=== PATIENT | female | born 1970 | race Caucasian/White ===

== ENCOUNTER 2021-10-02 12:23 | Emergency (ER) | payer OTHER, SELFPAY ==
[2021-10-02 12:24] VITALS: BP 101/65; PULSE 82; RESP 16; TEMP 36.1; O2SAT 98; BMI 25.0
--- NOTE | 2021-10-02 15:24 | EDS_ITS ---
HPI History of Present Illness Chief Complaint: Upper Extremity Injury Informant: patient Onset/Context/Timing Onset: Days Context: Sudden Onset Current Severity: Mild Maximum Severity: Mild Narrative Narrative: Patient presents secondary to infection of left index finger. 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 Her index finger got caught between the posterior molars of a [place] mountain dog. She was seen at an urgent care center who did an x-ray and started her on Augmentin. Patient today feels the area is more red and swollen. She went back to urgent care where they sent her to the emergency room. She is right-hand dominant. No paresthesias. Decreased range of motion at DIP secondary to pain and swelling. [facility] Medical History (Updated 10/02/21 @ 17:[address] Kirstie Paulson MD) Depression Medical History no medical history no medical history Allergy/AdvReac Type Severity Reaction Status Date / Time No Known Allergies Allergy Verified 10/02/21 12:26 Social History Smoking Status: Never smoker ROS ROS ED Constitutional Constitutional ED: Denies chills or fever(s) ENT ENT ED: Denies sore throat Cardiovascular Cardiovascular: Denies chest pain Respiratory/Chest Respiratory/Chest: Denies cough or dyspnea Gastrointestinal Gastrointestinal: Denies abdominal pain, nausea or vomiting Genitourinary Genitourinary ED: Denies dysuria Musculoskeletal Musculoskeletal: Reports other Details: Left index finger pain and swelling ; Denies back pain Integumentary Denies rash Neurologic Neurologic: Denies headache(s), paresthesias or weakness Allergic/Immunologic Allergic/Immunologic ED: Denies urticaria EXAM Physical Exam Const Vital Signs: 10/02/21 12:24 Temperature 96.9 F L Temperature Source Temporal Pulse Rate 82 Respiratory Rate 16 Blood Pressure 101/65 Blood Pressure Mean 77 Pulse Ox 98 Oxygen Delivery Method Room Air Positive well nourished and well developed General Appearance ED: well developed HEENT normocephalic and atraumatic Eyes PERRL and EOMs intact bilaterally Neck supple Chest Wall inspection of chest normal and palpation of chest normal Resp normal respiratory effort and clear to auscultation bilaterally Cardio regular rate and regular rhythm GI Palpation: soft Extremity Extremity Narrative: 2 scabbed lacerations to the left index finger at the DIP joint along both the medial lateral side. Mild surrounding erythema and edema. No tenderness along the flexor or extensor tendons. Able to flex and extend at PIP joint. Pain with flexion at DIP joint. Neuro oriented x3 Sensorium / Orientation: alert Psych mental status grossly normal MDM MDM MDM Narrative Medical decision making narrative: X-rays of left index finger obtained. Dose of IV Unasyn given. Radiography Diagnostic Testing: Radiology Impression Finger X-Ray 10/02/21 15:40 IMPRESSION: Soft tissue swelling. Electronically Signed: Oleg Rodriguez MD at 15:51 EST , Treatment and Re-Evaluation Comments:: X-ray per my interpretation reveals no acute abnormality. I do not see significant fluid in the DIP joint space. I did discuss with patient that while it does look like a mild infection it does not appear to be involving the joint space itself. She will continue current treatment. Discharge Plan Triage Chief Complaint: Upper Extremity Injury ED Provider: Kirstie Paulson Dx/Rx/DC Orders Clinical Impression: Dog bite Instructions: ED Dog Bite Primary Care Provider: Blanca Adame NP Referrals: Blanca Adame NP, [facility] [Primary Care Provider] - 1 Week Disposition Disposition: Home, Self Care Discharge Date/Time: 10/02/21 17:41
--- NOTE | 2021-10-02 15:40 | RAD_ITS ---
STUDY: X-RAY - LEFT HAND, ATTENTION INDEX FINGER REASON FOR EXAM: Female, 50 years old. Infection TECHNIQUE: 3 view(s) of the finger were obtained. COMPARISON: None. FINDINGS: Normal metacarpal head. Normal metacarpophalangeal joint. Normal proximal phalanx. Normal middle phalanx. Normal distal phalanx. Normal proximal interphalangeal joint. Normal distal interphalangeal joint. Soft tissue swelling. No radiopaque foreign body is seen. RAD/Finger(s) Min 2 Views IMPRESSION: Soft tissue swelling. Electronically Signed: Oleg Rodriguez MD at 15:51 EST ,
[2021-10-02 17:40] VITALS: BP 124/89; PULSE 64; RESP 14; TEMP 37; O2SAT 98
== END 2021-10-02 17:41 | disposition home or self-care (01) ==
PROVIDERS: Emergency Provider Emergency Medicine; PCP Nurse Practitioner Primary Care; Visit Provider Emergency Medicine
DX: S61.211D Laceration without foreign body of left index finger without damage to nail, subsequent encounter (principal); B99.9 Unspecified infectious disease; W54.0XXD Bitten by dog, subsequent encounter
CPT/HCPCS: 73140; 99282; J7050; A4216; J0295

== ENCOUNTER 2023-11-25 12:02 | Inpatient (IN) | payer OTHER, SELFPAY ==
[2023-11-25] VITALS (7 sets, daily range): BP systolic 109–128; BP diastolic 66–82; PULSE 70–88; RESP 16–20; TEMP 36.2–37; O2SAT 96–98; BMI 29.3; BMI 28.9
--- NOTE | 2023-11-25 12:17 | CT_ITS ---
STUDY: CT ABDOMEN AND PELVIS WITH CONTRAST REASON FOR EXAM: Female, 53 years old. Blood in the stool. Constipation. Abdominal pain. RADIATION DOSAGE (If Supplied By Facility): CTDIvol = ( 15.83 ) mGy, DLP = ( 1396.66 ) mGycm TECHNIQUE: Transaxial images were obtained from the dome of the diaphragm to the symphysis pubis with oral contrast. Oral and amp; IV Gastrografin and amp; 100mL Isovue-300 was administered. Sagittal and coronal images were reconstructed. Individualized dose optimization techniques were used for this CT. COMPARISON: None. FINDINGS: Minimal degree of dependent bibasilar atelectasis. The visualized portions of the heart are within normal limits. There are multiple hypodense nodules scattered throughout both lobes of the liver. The largest lesion in the right lobe measures 7.5 cm x 5 cm. The largest in the left lobe measures 5.2 cm x 5 cm. Metastatic deposit should be ruled out. There is decreased attenuation of the liver consistent with steatosis. Normal gallbladder and extrahepatic biliary system. Normal spleen. Normal pancreas. Normal bilateral adrenal glands. Normal right kidney. Normal left kidney. Normal visualized stomach. Normal small intestine. There is evidence of circumferential irregular wall thickening of the sigmoid colon more prominent along its anterior mesenteric aspect. Soft tissue nodules are seen along the anterior mesenteric side of the omentum. A sigmoid carcinoma should be ruled out. A large amount of fecal material is seen throughout the colon. The appendix is visualized and appears normal. Normal abdominal aorta. Normal inferior vena cava. Normal retroperitoneum. Normal urinary bladder. There is evidence of bilateral tubal ligation clips. Heterogeneous enlargement of the uterus suggestive of a fibroid uterus. There is a small umbilical hernia containing fat. This space narrowing and disc degeneration with spondylosis at the L5-S1 level. CT/Abdomen/Pelvis WITH Contrast IMPRESSION: Multiple hypodense nodules seen in the liver as described superimposed on diffuse fatty infiltration. Hepatic metastatic deposits should be ruled out. A large amount of fecal material is seen throughout the colon. There is abnormal thickening of the sigmoid colon as described. Increased markings are seen along the antimesenteric side of the omentum at the level of the sigmoid colon. Small adenopathy should BE ruled out. Enlarged fibroid uterus. Electronically Signed: Oleg Rodriguez MD at 14:32 EDT ,
--- NOTE | 2023-11-25 12:18 | EDS_ITS ---
HPI HPI - GI History of Present Illness Chief Complaint: Abd Pain Detail of Chief Complaint: Abdominal pain and rectal bleeding Informant: patient Narrative Narrative: Patient presents to the emergency department with complaint of abdominal pain that initially started 6 weeks ago with bloody diarrhea. That seem to over time subside but she continued to have bloody stools about 90% of the time at times passing some clots. Now she is having episodes of constipation. Her last bowel movement was yesterday but only had a very small amount. She feels bloated and uncomfortable. She followed up with her nurse practitioner who referred her to GI and she has an appointment December 15. No family history of inflammatory bowel disease or colon cancer. [facility] Medical History (Updated 11/25/23 @ 14:[address] Idania Palacios DO) Depression Home Medications citalopram 40 mg tablet 40 mg PO DAILY 11/25/23 [History Last Taken Unknown] estradiol 0.5 mg tablet 0.5 mg PO DAILY 11/25/23 [History Last Taken Unknown] levothyroxine 112 mcg tablet 112 mcg PO DAILY 11/25/23 [History Last Taken Unknown] progesterone micronized 200 mg capsule 200 mg PO DAILY 11/25/23 [History Last Taken Unknown] Allergy/AdvReac Type Severity Reaction Status Date / Time No Known Allergies Allergy Verified 11/25/23 12:03 Social History Smoking Status: Never smoker ROS ROS ED Review of Systems ROS Unobtainable: other Constitutional Constitutional ED: Reports lethargy; Denies chills, fever(s), sweats or weight loss Eyes Eyes: Denies blurry vision, change in vision or diplopia ENT ENT ED: Denies rhinorrhea or sore throat Cardiovascular Cardiovascular: Denies chest pain, orthopnea or racing heartbeat Respiratory/Chest Respiratory/Chest: Denies cough, dyspnea, dyspnea on exertion, orthopnea or sputum Gastrointestinal Gastrointestinal: Reports abdominal pain, constipation, diarrhea and other Details: Bright red blood per rectum ; Denies nausea or vomiting Genitourinary Genitourinary ED: Denies dysuria, hematuria or urinary frequency Musculoskeletal Musculoskeletal: Denies arthralgias, back pain, myalgias or neck pain Integumentary Denies abscess, Abrasions or rash Neurologic Neurologic: Denies headache(s) or weakness Psychiatric Psychiatric: Denies anxiety, depression or suicidal thoughts Endocrine Endocrinology: Denies polydipsia, polyphagia or polyuria Hematologic/Lymphatic Hematologic/Lymphatic: Denies easy bleeding, easy bruising or lymphadenopathy Allergic/Immunologic Allergic/Immunologic ED: Denies mouth swelling, tongue swelling or urticaria EXAM Physical Exam Const Vital Signs: 11/25/23 12:03 11/25/23 14:20 Temperature 97.5 F L 97.1 F L Temperature Source Temporal Oral Pulse Rate 87 81 Respiratory Rate 16 17 Blood Pressure 128/66 H 121/68 H Blood Pressure Mean 86 85 Pulse Ox 97 96 Oxygen Delivery Method Room Air Room Air Positive well nourished and well developed General Appearance ED: well developed and NAD HEENT Reports TM's clear and moist mucous membranes normocephalic and atraumatic; Negative for trauma or tenderness Tympanic Membrane ED: Yes TM's clear Eyes PERRL and EOMs intact bilaterally General Eye ED: Negative for pale conjunctiva or scleral icterus Neck no lymphadenopathy, supple and no JVD General: Negative for tenderness Chest Wall inspection of chest normal and palpation of chest normal Chest: Negative for tenderness Resp normal respiratory effort and clear to auscultation bilaterally Effort and Inspection: Negative for respiratory distress or pain with movement Auscultation: Negative for rhonchi, wheezes or diminished lung sounds Cardio regular rate, regular rhythm, S1 normal heart sound, S2 normal heart sound and no murmurs Peripheral Pulses: pulses 2+ throughout GI normal to inspection, nondistended, normoactive bowel sounds, soft to palpation, non-distended and no masses GI Narrative: Hyperactive bowel sounds. Mild diffuse tenderness throughout. Mild guarding. There is no rebound, rigidity, or pineal signs. No mass palpated. Rectal exam performed did not show any thrombosed or bleeding hemorrhoids. No fissures. There was no impaction. No masses palpated in the rectal vault. There was brown stool in the rectal vault which was sent for Hemoccult. Back/Spine no CVA tenderness and no thoracic nor lumbar tenderness Extremity normal to inspection General Extremety ED: Negative for edema General Extremity: Negative for edema Neuro oriented x3, CN's II-XII intact bilaterally, no sensory deficits noted and gait normal Sensorium / Orientation: awake, alert, oriented to person, oriented to place and oriented to time Motor Exam: strength 5/5 throughout and strength abnormal Psych mental status grossly normal Skin no rashes or lesions noted and no wounds MDM MDM MDM Narrative Medical decision making narrative: Patient presents with rectal bleeding and abdominal pain for 6 weeks. In the differential would be colon cancer versus inflammatory bowel disease versus hemorrhoids or fissures. Infectious etiology. IV line established. CBC with differential obtained for white count of 8.9 with hemoglobin 14.4 and platelet count of 411. Chemistries unremarkable. Patient had elevated AST of 75 and ALT of 39 and alk phos 171. C-reactive protein was elevated 18.4. Sed rate was elevated at 36. Lactate normal at 0.9. Urinalysis was normal. CT scan of the abdomen pelvis with IV and p.o. contrast obtained showed multiple hypodense nodule seen in the liver superimposed on diffuse fatty infiltration. Hepatic metastatic deposits should be ruled out. Large amount of fecal material seen throughout the colon and there is abnormal thickening of the sigmoid colon. There is increased markings seen along the antimesenteric side of the omentum at the level of the sigmoid colon and small adenopathy should be ruled out. At this point concern is for carcinoma of the sigmoid colon with metastasis to the liver. I did discuss findings with patient. Will contact GI on-call and also hospitalist to evaluate patient for admission. Patient will need further workup and evaluation and treatment for suspected metastatic carcinoma. Spoke with GI who recommended ordering a CEA and Dr. Callahna will order CT of the chest with IV contrast tomorrow given that we have already given her contrast today for the abdominal CT. Lab Data Attestation: I reviewed the patient's lab results. Labs: Laboratory Results - last 24 hr 11/25/23 11/25/23 11/25/23 12:20 13:15 13:45 WBC 8.9 RBC 4.96 Hgb 14.4 Hct 44.5 MCV 89.7 MCH 29.0 MCHC 32.4 RDW Std Deviation 41.3 RDW Coeff of Alex 12.6 Plt Count 411 MPV 10.2 Immature Gran % (Auto) 0.300 Neut % (Auto) 69.6 Lymph % (Auto) 19.7 [place] % (Auto) 7.4 Eos % (Auto) 2.2 Baso % (Auto) 0.8 Absolute Neuts (auto) 6.2 Absolute Lymphs (auto) 1.76 Nucleated RBC % 0 ESR 36 H Sodium 134 L Potassium 4.6 Chloride 103 Carbon Dioxide 26.0 Anion Gap 5 BUN 15 Creatinine 0.90 Est GFR (MDRD) Af Amer 84 Est GFR (MDRD) Non-Af 70 BUN/Creatinine Ratio 16.7 Glucose 97 Lactic Acid 0.9 Calcium 9.9 Total Bilirubin 0.50 AST 75 H ALT 39 Alkaline Phosphatase 171 H C-React Prot Ext Range 18.40 H Total Protein 8.7 H Albumin 4.0 Globulin 4.7 H Albumin/Globulin Ratio 0.9 Lipase TNP Urine Color Yellow Urine Clarity Clear Urine pH 6.5 Ur Specific [place] 1.010 Urine Protein 15 H Urine Glucose (UA) Normal Urine Ketones Negative Urine Occult Blood Negative Urine Nitrite Negative Urine Bilirubin Negative Urine Urobilinogen Normal Ur Leukocyte Esterase 25 H Urine RBC 0 SEEN Urine WBC 0-5 SEEN Ur Squamous Epith Cells 0-5 SEEN Urine Bacteria 0 SEEN Urine Mucus 0 SEEN Radiography Diagnostic Testing: Clinical Impression(s) from Imaging Studies Abdomen/Pelvis CT 11/25/23 12:17 IMPRESSION: Multiple hypodense nodules seen in the liver as described superimposed on diffuse fatty infiltration. Hepatic metastatic deposits should be ruled out. A large amount of fecal material is seen throughout the colon. There is abnormal thickening of the sigmoid colon as described. Increased markings are seen along the antimesenteric side of the omentum at the level of the sigmoid colon. Small adenopathy should BE ruled out. Enlarged fibroid uterus. Electronically Signed: Oleg Rodriguez MD at 14:32 EDT , Discharge Plan Dx/Rx/DC Orders Clinical Impression: Metastasis to liver, Rectal bleed, Carcinoma of colon, Abdominal pain Disposition Disposition: Acute Care [facility]
[2023-11-25 12:39] LABS: Absolute Lymphocyte Count 1.76 X10^3/uL (0.83-4.51); Absolute Neutrophil Count 6.2 X10^3/uL (2.0-7.7); Basophil# 0.07 X10^3/uL; Basophil% 0.8 % (0-1); Eosinophils% 2.2 % (0-5); Hematocrit 44.5 % (37-47); Hemoglobin 14.4 g/dL (12.0-15.0); Lymphocyte # 1.76 X10^3/ul (0.83-4.51); Lymphocyte % 19.7 % (19-41); Mean Corp Hgb Conc 32.4 g/dL (32-36); Mean Corpuscular Volume 89.7 fL (81-99); Mean Platelet Vol. 10.2 fl (6.2-12.0); Monocyte# 0.66 X10^3/uL; Monocyte% 7.4 % (0-10); NRBC Flagged by Analyzer 0 % (0-5); Neutrophil # 6.21 X10^3/uL (2.7-7.7); Neutrophil % 69.6 % (47-70); Platelet Count 411 K/mm3 (150-450); RBC Distribution Width CV 12.6 % (11.6-14.6); RBC Distribution Width SD 41.3 fl (35.1-43.9); Red Blood Count 4.96 M/mm3 (4.2-5.4); White Blood Count 8.9 K/mm3 (4.4-11.0)
[2023-11-25] MEDS: 0.9% Normal Saline (1000mL) 1,000 ML 125 ML IV (13:00)
[2023-11-25 13:08] LABS: Erythrocyte Sedimentation Rate 36 mm/hr (0-30)
[2023-11-25 13:10] LABS: ALB/GLOB Ratio 0.9 RATIO (0.9-2.4); AST(SGOT) 75 U/L (15-37); Alanine Aminotransfer ALT/SGPT 39 U/L (13-56); Alkaline Phosphatase 171 U/L (45-117); Anion Gap 5 (5-15); BUN 15 mg/dL (7-18); BUN/Creat Ratio 16.7 RATIO (10-20); Calcium,Total 9.9 mg/dL (8.5-10.1); Chloride 103 mmol/L (98-107); EST Glomerular Filtration Rate 70 mL/min (>60); Est Glom Filt Rate - Afr Amer 84 mL/min (>60); Globulin 4.7 g/dL (2.2-4.2); Glucose 97 mg/dL (74-106); Potassium 4.6 mmol/L (3.5-5.1); Protein, Total 8.7 g/dL (6.4-8.2); Sodium Level 134 mmol/L (136-145)
[2023-11-25 13:51] LABS: Bacteria 0 SEEN /hpf (None Seen); Mucous, Urine 0 SEEN /hpf (<or=2+); Red Blood Cells-Urine 0 SEEN /hpf (0-5)
[2023-11-25 13:57] LABS: Color, Urine Yellow (Yellow); Glucose, Dipstick Normal (Normal); Ketone-Dipstick Negative (Negative); Leukocyte Esterase-Dipstick 25 /ul (Negative); Nitrite-Dipstick Negative (Negative); Occult Blood-Urine Negative /ul (Negative); Protein-Dipstick 15 mg/dl (Negative); Urine Bilirubin Dipstick Negative (Negative); Urine Clarity Clear (Clear); Urine Urobilinogen Normal (Normal); Urine pH 6.5 (5.0 - 8.0)
[2023-11-25 13:57] LABS: Lactic Acid 0.9 mmol/L (0.4-1.9)
[2023-11-25 14:20] LABS: Squamous Epithelial Cells - UA 0-5 SEEN /hpf (5-10); White Blood Cells 0-5 SEEN /hpf (0-5)
--- NOTE | 2023-11-25 15:07 | PCM.HP.STD ---
HPI - General General Date of Admission: 11/25/23 Date of Service: 11/25/23 Chief Complaint: Abdominal pain, bloody stools. HPI Narrative The patient is a 53 y/o F w/ PMHx: Anxiety and Depression, Hypothyroidism who presents to the [facility] ED on 11/25/23 with ongoing abdominal discomfort initially starting 6 weeks prior with bloody diarrhea which seems to have subsided however she will intermittently still have bloody stools and at times passed some clots now having episodes of constipation with her last bowel movement today prior but a very scant amount with consistent ongoing discomfort and bloating still awaiting upcoming evaluation per gastroenterology with appointment 12/16/2023 with no history of previous colon cancer or inflammatory bowel disease prompting eventual ED evaluation. Patient rates her abdominal discomfort 4 out of 10 in severity, worse with palpation. Reports no current nausea or recent emesis bouts. Workup in the ED included T97.1, heart rate 81, BP 121/68, respiratory rate 17, 96% on room air, CBC with WBC 8.9, hemoglobin 14.4, platelets 411 without marked shift, ESR 36, CRP 18.40, CMP with sodium 134, lactic acid 0.9, AST/ALT 75/31, alk phos 171 otherwise hepatic profile not marked appearing, lipase pending upon requested evaluation of patient, urinalysis unremarkable, stool guaiac positive, CT abdomen and pelvis with multiple hypodense nodule seen in liver superimposed on diffuse fatty infiltration with hepatic metastatic deposits a possibility, large amount of fecal material throughout the colon, abnormal thickening of the sigmoid colon, increased markings seen along the antimesenteric side of the omentum at the level of the sigmoid colon with small adenopathy a possibility, enlarged fibroid uterus. In the ED patient ministered maintenance IV fluids. ED discussed case with Dr. Callahan. In the ED patient ministered maintenance IV fluids. [facility] Medical History (Updated 11/25/23 @ 17:[address] Angella Rodriguez MD) Anxiety and depression Hypothyroidism Obesity Home Medications acetaminophen 500 mg capsule 500 mg PO DAILY 11/25/23 [History Last Taken 11/22/23] buspirone 10 mg tablet 20 mg PO BID 11/25/23 [History Last Taken 11/24/23] citalopram 40 mg tablet 40 mg PO DAILY 11/25/23 [History Last Taken 11/24/23] estradiol 0.5 mg tablet 0.5 mg PO DAILY 11/25/23 [History Last Taken 11/24/23] levothyroxine 112 mcg tablet 112 mcg PO DAILY 11/25/23 [History Last Taken 11/21/23] loratadine 10 mg tablet (Allerclear) 10 mg PO DAILY 11/25/23 [History Last Taken Unknown] progesterone micronized 200 mg capsule 200 mg PO DAILY 11/25/23 [History Last Taken 11/22/23] turmeric 400 mg capsule 400 mg PO DAILY 11/25/23 [History Last Taken 11/24/23] Allergy/AdvReac Type Severity Reaction Status Date / Time No Known Allergies Allergy Verified 11/25/23 12:03 Family History (Updated 11/25/23 @ 17:[address] Angella Rodriguez MD) Mother COPD (chronic obstructive pulmonary disease) Lung cancer Diabetes Father Heart disease Hypertension Surgical History (Updated 11/25/23 @ 17:[address] Angella Rodriguez MD) H/O section History of bilateral tubal ligation Hx of appendectomy Social History (Updated 11/25/23 @ 17:[address] Angella Rodriguez MD) household members: family and children Smoking Status: Never smoker alcohol intake: never substance use type: does not use ROS ROS Narrative Admission Review of Systems: CONSTITUTIONAL: No weight loss, fever, chills, +weakness or fatigue. HEENT: Eyes: No visual loss, blurred vision, double vision or yellow sclerae. Ears, Nose, Throat: No hearing loss, sneezing, congestion, runny nose or sore throat. SKIN: No rash or itching, lesions, wounds. CARDIOVASCULAR: No chest pain, chest pressure or chest discomfort, palpitations, edema, orthopnea, syncopal events. RESPIRATORY: No shortness of breath, cough or sputum, wheezing, hemoptysis. GASTROINTESTINAL: + anorexia, abdominal discomfort, cramping, bloating, bright red blood per rectum/clots. No reported melanotic stool. GENITOURINARY: No dysuria, frequency, urgency or retention. NEUROLOGICAL: No headache, dizziness, syncope, paralysis, ataxia, numbness or tingling in the extremities, focal weakness, change in bowel or bladder control, seizure. MUSCULOSKELETAL: + muscle, back pain, joint pain or stiffness. HEMATOLOGIC: No anemia. + As noted bright red blood per rectum/bleeding. LYMPHATICS: No enlarged nodes. No history of splenectomy. PSYCHIATRIC: + History of anxiety and depression. ENDOCRINOLOGIC: No reports of sweating, cold or heat intolerance. No polyuria or polydipsia. ALLERGIES: No history of asthma, hives, eczema or rhinitis. Vital Signs Vital Signs Vital Signs: 11/25/23 12:03 11/25/23 14:20 Temperature 97.5 F L 97.1 F L Temperature Source Temporal Oral Pulse Rate 87 81 Respiratory Rate 16 17 Blood Pressure 128/66 H 121/68 H Blood Pressure Mean 86 85 Pulse Ox 97 96 Oxygen Delivery Method Room Air Room Air Weight Weight: 192 lb 14.472 oz Body Mass Index (BMI) 29.3 Physical Exam Narrative Physical Examination: General: Awake, alert, oriented x 3 and cooperative, seated upright in the ED bed, fatigued, tearful. Skin: Normal color, normal turgor, no icterus, no cyanosis. HEENT: AT/NC, EOMI, PERRLA, moderately dry MM, no carotid bruits or JVD noted. Lungs: CTA bilaterally, moderate effort, mild decrease BL bases, no rales, ronchi or wheezing. Heart: Regular rate and rhythm; no gallop, rub audible. Abdomen: Soft, obese, primarily uncomfortable periumbilical as well as bilateral lower quadrant, mildly distended but not significantly tympanitic, difficult to appreciate HSM given habitus, mildly hyperactive bowel sounds. Extremities: No cyanosis, clubbing, or edema. Neurological: Patient awake, alert, oriented as noted, cognitive function intact; pupils equally reactive to light and accommodation, cranial nerves grossly normal, moving all 4 extremities, no focal deficits, strength mildly globally decreased secondary to acute complaints. Psychiatric: Affect appears fatigued, appropriately tearful, does have underlying anxiety and depression. Results Lab / Micro Data 11/25/23 12:20 11/25/23 12:20 Labs: Laboratory Results - last 24 hr 11/25/23 12:20: WBC 8.9, RBC 4.96, Hgb 14.4, Hct 44.5, MCV 89.7, MCH 29.0, MCHC 32.4, RDW Std Deviation 41.3, RDW Coeff of Alex 12.6, Plt Count 411, MPV 10.2, Immature Gran % (Auto) 0.300, Neut % (Auto) 69.6, Lymph % (Auto) 19.7, [place] % (Auto) 7.4, Eos % (Auto) 2.2, Baso % (Auto) 0.8, Absolute Neuts (auto) 6.2, Absolute Lymphs (auto) 1.76, Nucleated RBC % 0, ESR 36 H, Sodium 134 L, Potassium 4.6, Chloride 103, Carbon Dioxide 26.0, Anion Gap 5, BUN 15, Creatinine 0.90, Est GFR (MDRD) Af Amer 84, Est GFR (MDRD) Non-Af 70, BUN/Creatinine Ratio 16.7, Glucose 97, Calcium 9.9, Total Bilirubin 0.50, AST 75 H, ALT 39, Alkaline Phosphatase 171 H, C-React Prot Ext Range 18.40 H, Total Protein 8.7 H, Albumin 4.0, Globulin 4.7 H, Albumin/Globulin Ratio 0.9, Lipase TNP 11/25/23 13:15: Lactic Acid 0.9 11/25/23 13:45: Urine Color Yellow, Urine Clarity Clear, Urine pH 6.5, Ur Specific [place] 1.010, Urine Protein 15 H, Urine Glucose (UA) Normal, Urine Ketones Negative, Urine Occult Blood Negative, Urine Nitrite Negative, Urine Bilirubin Negative, Urine Urobilinogen Normal, Ur Leukocyte Esterase 25 H, Urine RBC 0 SEEN, Urine WBC 0-5 SEEN, Ur Squamous Epith Cells 0-5 SEEN, Urine Bacteria 0 SEEN, Urine Mucus 0 SEEN Micro: Microbiology 11/25/23 12:20 Stool Stool Occult Blood (ESME) - Final Occult Blood Positive Imaging Radiology Impression Abdomen/Pelvis CT 11/25/23 12:17 IMPRESSION: Multiple hypodense nodules seen in the liver as described superimposed on diffuse fatty infiltration. Hepatic metastatic deposits should be ruled out. A large amount of fecal material is seen throughout the colon. There is abnormal thickening of the sigmoid colon as described. Increased markings are seen along the antimesenteric side of the omentum at the level of the sigmoid colon. Small adenopathy should BE ruled out. Enlarged fibroid uterus. Electronically Signed: Oleg Rodriguez MD at 14:32 EDT , Assessment & Plan Assessment/Plan (1) Rectal bleed: PLAN: Plan The patient is a 53 y/o F w/ PMHx: Anxiety and Depression, Hypothyroidism who presents to the [facility] ED on 11/25/23 with ongoing abdominal discomfort initially starting 6 weeks prior with bloody diarrhea which seems to have subsided however she will intermittently still have bloody stools and at times passed some clots now having episodes of constipation with her last bowel movement today prior but a very scant amount with consistent ongoing discomfort and bloating. #1. Abdominal pain, cramping, bright red blood per rectum secondary to Acute GI Bleed complicated by suspected sigmoid colon mass as well as possible hepatic metastases with elevated AST, elevated alk phos and mildly increased inflammatory markers: Will admit to [facility], will maintain on IVFs, will obtain serial H+Hs, will maintain on IV PPI, will initiate bowel prep for possible evaluation endoscopically in AM, will continue GI consultation initiated per ED, will obtain CT chest with contrast 11/26/2023 following overnight hydration given contrast already used for CT abdomen upon presentation in the ED, CEA level pending per ED physician per GI request, will allow clears until midnight then n.p.o. status. #2. Hyponatremia, mild: Admission sodium 134, chloride 103, suspect some component of dehydration as poor intake with recent complaints, will judiciously hydrate and repeat CMP in AM. #3. Anxiety and depression: We will continue patient on citalopram regimen. #4. Hypothyroidism: We will continue patient home levothyroxine regimen. #5. Obesity: Weight loss and lifestyle changes encouraged. #6. DVT prophylaxis: SCDs. #7. CODE STATUS: Full code. Charges/Coding Visit Charges Inpatient E&M: 97034 Init Hosp L2
--- NOTE | 2023-11-25 17:28 | CON.PCM.GI_ITS ---
HPI Consult Data Date of Consult: 11/25/23 HPI Narrative Reason for Consultation: Lower GI bleeding HPI Narrative: CHRIS NIX, is a 53 F who presents with worsening abdominal pain followed by multiple episodes of bright red blood per rectum and diarrhea which turned into blood clots per rectum. She has never had a colonoscopy in the past. She has a past medical history of Anxiety and Depression, Hypothyroidism. She presents to the [facility] ED on 11/25/23 with ongoing abdominal discomfort initially starting 6 weeks prior with bloody diarrhea which seems to have subsided however she will intermittently still have bloody stools and at times passed some clots now having episodes of constipation with her last bowel movement today prior but a very scant amount with consistent ongoing discomfort and bloating still awaiting upcoming evaluation per gastroenterology with appointment 12/16/2023 with no history of previous colon cancer or inflammatory bowel disease prompting eventual ED evaluation. Workup in the ED included T97.1, heart rate 81, BP 121/68, respiratory rate 17, 96% on room air, CBC with WBC 8.9, hemoglobin 14.4, platelets 411 without marked shift, ESR 36, CRP 18.40, CMP with sodium 134, lactic acid 0.9, AST/ALT 75/31, alk phos 171 otherwise hepatic profile not marked appearing, lipase pending upon requested evaluation of patient, urinalysis unremarkable, stool guaiac positive, CT abdomen and pelvis with multiple hypodense nodule seen in liver superimposed on diffuse fatty infiltration with hepatic metastatic deposits a possibility, large amount of fecal material throughout the colon, abnormal thickening of the sigmoid colon, increased markings seen along the antimesenteric side of the omentum at the level of the sigmoid colon with small adenopathy a possibility, enlarged fibroid uterus. [facility] Medical History (Updated 11/25/23 @ 14:[address] Idania Palacios, DO) Depression Home Medications acetaminophen 500 mg capsule 500 mg PO DAILY 11/25/23 [History Last Taken 11/22/23] buspirone 10 mg tablet 20 mg PO BID 11/25/23 [History Last Taken 11/24/23] citalopram 40 mg tablet 40 mg PO DAILY 11/25/23 [History Last Taken 11/24/23] estradiol 0.5 mg tablet 0.5 mg PO DAILY 11/25/23 [History Last Taken 11/24/23] levothyroxine 112 mcg tablet 112 mcg PO DAILY 11/25/23 [History Last Taken 11/21/23] loratadine 10 mg tablet (Allerclear) 10 mg PO DAILY 11/25/23 [History Last Taken Unknown] progesterone micronized 200 mg capsule 200 mg PO DAILY 11/25/23 [History Last Taken 11/22/23] turmeric 400 mg capsule 400 mg PO DAILY 11/25/23 [History Last Taken 11/24/23] Allergy/AdvReac Type Severity Reaction Status Date / Time No Known Allergies Allergy Verified 11/25/23 12:03 Social History Smoking Status: Never smoker ROS Review of Systems ROS Unobtainable: other Constitutional Constitutional: Denies fatigue, fever(s), poor appetite, weight gain or weight loss ENT HEENT: Denies mouth lesions Cardiovascular Cardiovascular: Denies abdominal bloating, abdominal edema or abdominal pain Respiratory/Chest Respiratory/Chest: Denies change in mental status, change in phlegm color, chest congestion or chest tightness Gastrointestinal Gastrointestinal: Denies belching, bloating, change in bowel habits, change in stool character, chewing difficulty, coffee ground emesis, constipation, cramping, diarrhea, dyspepsia, dysphagia, early satiety, excessive flatus, fecal incontinence, heartburn, hematemesis, hematochezia, hemorrhoids, loose stools, melena, nausea, odynophagia, rectal bleeding, tenesmus, vomiting or weight jackson ges Genitourinary Genitourinary: Denies abdominal discomfort, burning urination or itching Musculoskeletal Musculoskeletal: Reports as per HPI; Denies muscle weakness or myalgias Integumentary Integumentary: Denies jaundice Neurologic Neurologic: Denies lack of coordination or weakness Psychiatric Psychiatric: Denies confusion, depression, memory loss, mood swings, paranoia or suicidal ideation Endocrine Endocrinology: Denies systems reviewed and no addt'l complaints, except as documented Hematologic/Lymphatic Hematologic/Lymphatic: Denies anemia, easy bleeding, easy bruising or lymphadenopathy Allergic/Immunologic Allergic/Immunologic: Denies systems reviewed and no addt'l complaints, except as documented Physical Exam Const alert, oriented x3, no apparent distress, healthy appearing and well nourished General Appearance: cooperative, comfortable, well kempt and well developed Orientation / Consciousness: awake and oriented to person HEENT Head and Scalp: normocephalic and atraumatic Face and Sinus: normal facial exam Mouth: oral and palatal mucosa normal Eyes General Eye: normal appearance of both eyes Neck full ROM Lymph Lymphatic: no lymphadenopathy noted Chest inspection of chest normal Resp normal respiratory effort and no use of accessory muscles Cardio regular rate and regular rhythm GI normal to inspection, nondistended, normoactive bowel sounds, soft to palpation, non-tender, non-distended and no masses Auscultation: normoactive bowel sounds Palpation: soft Percussion: normal to percussion Rectal Exam: visual inspection normal and normal sphincter tone no CVA tenderness Back/Spine no CVA tenderness and normal ROM Extremity normal to inspection Peripheral Pulses: Yes pulses 2+ throughout Skin no rashes or lesions noted General Skin Exam: no breakdown, elasticity normal and turgor normal Neuro oriented x3 Motor Exam: strength 5/5 throughout Psych mental status grossly normal Appearance: grossly normal Attitude: calm Activity / Motor Behavior: appropriate eye contact Speech: normal speech Thought Process: normal thought process Thought Content: normal thought content Attention / Concentration: attention grossly intact Memory / Cognition: memory grossly intact Insight: insight good Judgement: judgement good Lab / Micro Data 11/25/23 12:20 11/25/23 12:20 Labs: Laboratory Results - last 24 hr 11/25/23 12:20: WBC 8.9, RBC 4.96, Hgb 14.4, Hct 44.5, MCV 89.7, MCH 29.0, MCHC 32.4, RDW Std Deviation 41.3, RDW Coeff of Alex 12.6, Plt Count 411, MPV 10.2, Immature Gran % (Auto) 0.300, Neut % (Auto) 69.6, Lymph % (Auto) 19.7, [place] % (Auto) 7.4, Eos % (Auto) 2.2, Baso % (Auto) 0.8, Absolute Neuts (auto) 6.2, Absolute Lymphs (auto) 1.76, Nucleated RBC % 0, ESR 36 H, Sodium 134 L, Potassium 4.6, Chloride 103, Carbon Dioxide 26.0, Anion Gap 5, BUN 15, Creatinine 0.90, Est GFR (MDRD) Af Amer 84, Est GFR (MDRD) Non-Af 70, BUN/Creatinine Ratio 16.7, Glucose 97, Calcium 9.9, Total Bilirubin 0.50, AST 75 H, ALT 39, Alkaline Phosphatase 171 H, C-React Prot Ext Range 18.40 H, Total Protein 8.7 H, Albumin 4.0, Globulin 4.7 H, Albumin/Globulin Ratio 0.9, Lipase TNP 11/25/23 13:15: Lactic Acid 0.9 11/25/23 13:45: Urine Color Yellow, Urine Clarity Clear, Urine pH 6.5, Ur Specific [place] 1.010, Urine Protein 15 H, Urine Glucose (UA) Normal, Urine Ketones Negative, Urine Occult Blood Negative, Urine Nitrite Negative, Urine Bilirubin Negative, Urine Urobilinogen Normal, Ur Leukocyte Esterase 25 H, Urine RBC 0 SEEN, Urine WBC 0-5 SEEN, Ur Squamous Epith Cells 0-5 SEEN, Urine Bacteria 0 SEEN, Urine Mucus 0 SEEN Micro: Microbiology 11/25/23 12:20 Stool Stool Occult Blood (ESME) - Final Occult Blood Positive Imaging Radiology Impression Abdomen/Pelvis CT 11/25/23 12:17 IMPRESSION: Multiple hypodense nodules seen in the liver as described superimposed on diffuse fatty infiltration. Hepatic metastatic deposits should be ruled out. A large amount of fecal material is seen throughout the colon. There is abnormal thickening of the sigmoid colon as described. Increased markings are seen along the antimesenteric side of the omentum at the level of the sigmoid colon. Small adenopathy should BE ruled out. Enlarged fibroid uterus. 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 Right at this time she is not having any signs or symptoms of a large bowel obstruction. She will need to undergo colonoscopy with biopsies. She will also need to undergo liver biopsy along with CT scan of the chest and likely PET scan. CEA level was drawn. All questions were answered. Charges/Coding Visit Charges Inpatient E&M: 15180 Init Hosp L3
[2023-11-25 18:19] LABS: Magnesium 1.7 mg/dL (1.6-2.6); Phosphorus 2.5 mg/dL (2.5-4.9)
[2023-11-25] MEDS: Bisacodyl 5 MG Tablet 20 MG PO (18:55)
[2023-11-25] MEDS: 0.9% Normal Saline (1000mL) 1,000 ML 100 ML IV (19:01)
[2023-11-25] MEDS: Polyethylene Glycol 3350 BOWEL PREP PO (20:28)
[2023-11-25] MEDS: busPIRone 5 MG Tablet 20 MG PO (20:29)
[2023-11-25] MEDS: Acetaminophen 325 MG Tablet 650 MG PO (20:32)
[2023-11-25] MEDS: Pantoprazole Sodium 40 MG in 0.9% Normal Saline (100mL MB+) 100 ML 330 MG IV (20:34)
[2023-11-25 20:39] LABS: Hematocrit 40.4 % (37-47); Hemoglobin 13.1 g/dL (12.0-15.0)
[2023-11-25] MEDS: proCHLORPERazine 10 MG/2 ML Vial 5 MG IV (20:43)
[2023-11-25] MEDS: 0.9% Saline Lock 10 ML Syringe IV (20:43)
[2023-11-26] VITALS (14 sets, daily range): BP systolic 96–129; BP diastolic 50–88; PULSE 72–92; RESP 14–18; TEMP 36.2–36.8; O2SAT 96–100; BMI 28.8; BMI 28.9
--- NOTE | 2023-11-26 | IMM_PTH ---
PATIENT: CHRIS NIX LOC: MS3 U#:[id number] AGE/SX: 53/F ROOM: [facility] RE11/25/[address]: Dr. Eugenio Barr DO : 1970 BED: 1 DIS: 11/30/2023 SPEC #: [id number] RECD: 11/28/23 11:14 STATUS: MAYELA REQ #: [id number] MERCEDES: 11/26/23 00:[address]: Mark Callahan DEPT: IMMUNOHISTOCHEMISTRY RECD BY: Jim Young ENTERED: 11/28/23 11:16 SP TYPE: IMMUNO OTHR DR: MD Dr. Lorenzo Abdul DO Jessica Witmer, MOLDER INFLATED BALL-C Tissues: Colon, NOS Procedures: MSH2 (add) MLH-1 (add) MSH6 (add) Anti-PMS2 (add) KI-67 (add) P53 (add) IN SITU HYBRIDIZATION MOC-31 (add) HER-2-REDDY (initial) Comments: @ Ordering doctor for HER2 edited from to @ by LIANA at 11/28/23 1116 @ Ordering doctor for MSH2. edited from to @ by LIANA at 11/28/23 1116 @ Ordering doctor for MLH1. edited from to @ by LIANA at 11/28/23 1116 @ Ordering doctor for MSH6. edited from to @ by LIANA at 11/28/23 1116 @ Ordering doctor for PMS2. edited from to @ by LIANA at 11/28/23 1116 @ Ordering doctor for KI67. edited from to @ by LIANA at 11/28/23 1116 @ Ordering doctor for P53. edited from to @ by LIANA at 11/28/23 1116 @ Ordering doctor for MOC31 edited from to @ by LIANA at 11/28/23 1116 @ Submitting doctor edited from to @ by LIANA at 11/28/23 1116 PHYSICIAN & [place] [id number] SPECIMEN INFORMATION: Tissue Source: Sigmoid mass biopsy Clinical Info: Rectal bleed Specimen Number: [id number] CPT code: [id number] METHODOLOGY: Deparaffinized sections of prefer/formalin-fixed tissue or PAP/DQ stained slides are incubated with monoclonal/polyclonal antibodies/oligonucleotide probes. Localization is made via biotin free immunoperoxidase method. Appropriate controls are performed and reacted as expected. Results on target cell population are indicated in the following table: RESULTS: ANTIBODY / CLONE RESULT Her-2neu (CB11) 2+ (equivocal) MOC-31 (4561) positive MLH1 (M1) positive MSH2 (25D12) positive MSH6 (44) positive PMS2 ([id number]) positive P53 (DO-7) positive, focal ( intermediate pattern) Ki-67 (30-9) positive, high These tests were developed and their performance characteristics determined by [facility]. They may not have been cleared or approved by the U.S. Food and Drug Administration. The FDA has determined that such clearance or approval is not necessary. The above immunohistochemical/dualISH markers are ordered and reviewed by the Pathologist. INTERPRETATION: Sigmoid mass, biopsy: Invasive adenocarcinoma. Result of Microsatellite Instability Study: Negative (no loss of mismatch protein; no microsatellite instability detected) SJ/mr 11/29/2023 ADDENDUM ADDENDUM ADDENDUM ADDENDUM ADDENDUM ADDENDUM ADDENDUM ADDENDUM ADDENDUM ADDENDUM ADDENDUM ADDENDUM ADDENDUM ADDENDUM ADDENDUM ADDENDUM ADDENDUM ADDENDUM ADDENDUM ADDENDUM ADDENDUM ADDENDUM 12/02/2023 13:51 ADDENDUM 12/02/2023 13:51 ADDENDUM 12/02/2023 13:51 ADDENDUM 12/02/2023 13:51 ADDENDUM 12/02/2023 13:51 IN SITU HYBRIDIZATION (ALEIDA) FOR HER2 Interpretation: Negative/Not Amplified HER2 : CEP-17 Ratio: 1.2 Average HER2 Signal: 1.95 Average CEP-17 Signal: 1.6 Number of Tumor Cells Scanned: 50 Interpretative Information: The INFORM HER2 Dual ALEIDA DNA Probe Cocktail assay is performed on formalin-fixed paraffin embedded tissue and determines HER2 gene status by detecting HER2 copies via silver in situ hybridization (SISH) and Chromosome 17 copies via chromogenic red in situ hybridization on tumor cells. A minimum of 20 cells representing > 10% of contiguous and homogeneous invasive tumor cells were analyzed. HER2 gene status is classified as Non-amplified (HER2/Chr17 ratio < 2.0) or Amplified (HER2/Chr17 ratio greater than or equal to 2.0). If the resulting HER2/Chr17 ratio falls within 1.8 - 2.2 (Borderline), retesting by FISH is recommended. Reference: Dorothy AC, Jc CARPIO, Joan DG, et al: Recommendations for Human Epidermal Growth Factor Receptor 2 Testing in Breast Cancer: [employer] Society [employer] On[employer] / [employer] Clinical Practice Guideline Update. J Clin Oncol 31:2566-8694, 2013. MAX/mr 12/02/2023
[2023-11-26 01:24] LABS: Hematocrit 36.7 % (37-47); Hemoglobin 12.2 g/dL (12.0-15.0)
[2023-11-26] MEDS: Menthol/Lanolin/Calamine/Znox 113 GM Tube 1 APPLIC TOPICAL ×3 (03:41→21:26)
[2023-11-26] MEDS: 0.9% Normal Saline (1000mL) 1,000 ML 100 ML IV (03:41)
[2023-11-26] MEDS: Levothyroxine 112 MCG Tablet PO (05:53)
--- NOTE | 2023-11-26 05:55 | CT_ITS ---
STUDY: CT CHEST WITH CONTRAST REASON FOR EXAM: Female, 53 years old. Evaluation mets RADIATION DOSAGE (If Supplied By Facility): CTDIvol = ( 13.61 ) mGy, DLP = ( 535.93 ) mGycm TECHNIQUE: Transaxial imaging was performed following intravenous administration of IV 100mL Isovue-300. Multiplanar coronal and sagittal images were reformatted. Individualized dose optimization techniques were used for this CT. COMPARISON: No relevant priors. FINDINGS: CHEST Mild heterogeneous appearance of both lobes of the thyroid more prominent on the left side. There is a 1.4 cm hypodense nodule in the upper pole of the left lobe of the thyroid. There is also evidence of a substernal extension more prominent on the right side. Findings suggestive of goitrous change. Correlation with ultrasound of the thyroid recommended. The lungs are normal. There is no demonstrated pleural abnormality. Normal heart and pericardium. No coronary artery calcification seen. Normal mediastinum. Normal hilar regions. Normal unenhanced pulmonary arteries. Normal aorta arch and descending thoracic aorta. There are mild degenerative changes of the thoracic spine. Hepatomegaly. Multiple hypodense masses are seen in the liver suggestive of metastasis. CT/Chest WITH Contrast IMPRESSION: Heterogeneous enlargement of the thyroid gland with a substernal extension as described. Correlation with ultrasound recommended. No evidence of the pulmonary mass or infiltration. Electronically Signed: Oleg Rodriguez MD at 14:07 EDT ,
[2023-11-26 06:56] LABS: Absolute Lymphocyte Count 1.29 X10^3/uL (0.83-4.51); Absolute Neutrophil Count 4.1 X10^3/uL (2.0-7.7); Basophil# 0.06 X10^3/uL; Basophil% 0.9 % (0-1); Eosinophil# 0.28 X10^3/uL; Eosinophils% 4.4 % (0-5); Hematocrit 39.5 % (37-47); Hemoglobin 12.7 g/dL (12.0-15.0); Lymphocyte # 1.29 X10^3/ul (0.83-4.51); Lymphocyte % 20.3 % (19-41); Mean Corp Hgb Conc 32.2 g/dL (32-36); Mean Corpuscular Hgb 28.8 pg (27.0-32.0); Mean Corpuscular Volume 89.6 fL (81-99); Mean Platelet Vol. 9.8 fl (6.2-12.0); Monocyte# 0.59 X10^3/uL; Monocyte% 9.3 % (0-10); NRBC Flagged by Analyzer 0 % (0-5); Neutrophil # 4.11 X10^3/uL (2.7-7.7); Neutrophil % 64.9 % (47-70); Platelet Count 385 K/mm3 (150-450); RBC Distribution Width CV 12.6 % (11.6-14.6); RBC Distribution Width SD 41.5 fl (35.1-43.9); Red Blood Count 4.41 M/mm3 (4.2-5.4); White Blood Count 6.3 K/mm3 (4.4-11.0)
--- NOTE | 2023-11-26 07:20 | PN.HOSP_ITS ---
Reason for Visit Reason for Visit: Diagnoses Malignant neoplasm of colon, unspecified (11/25/23) Hemorrhage of anus and rectum (11/25/23) Unspecified abdominal pain (11/25/23) Subjective Subjective No further bleeding. Objective Data Objective Data Vital Signs: Vital Signs Temp Pulse Resp BP Pulse Ox O2 Del Method 36.4 C L 81 16 96/50 L 98 Room Air 11/26/23 03:35 11/26/23 03:35 11/26/23 03:35 11/26/23 03:35 11/26/23 03:35 11/26/23 03:35 Oxygen Delivery Method Room Air Weight: 86.31 kg Body Mass Index (BMI) 28.8 Intake & Output: Intake and Output for Last 24 Hours 11/24/23 11/25/23 11/26/23 23:59 23:59 23:59 Intake Total 2297.5 / 2297.5 866.67 / 866.67 Balance 2297.5 / 2297.5 866.67 / 866.67 Lab / Micro Data 11/26/23 06:38 11/26/23 06:38 Labs: Laboratory Results - last 24 hr 11/25/23 12:20: WBC 8.9, RBC 4.96, Hgb 14.4, Hct 44.5, MCV 89.7, MCH 29.0, MCHC 32.4, RDW Std Deviation 41.3, RDW Coeff of Alex 12.6, Plt Count 411, MPV 10.2, Immature Gran % (Auto) 0.300, Neut % (Auto) 69.6, Lymph % (Auto) 19.7, Thayer % (Auto) 7.4, Eos % (Auto) 2.2, Baso % (Auto) 0.8, Absolute Neuts (auto) 6.2, Absolute Lymphs (auto) 1.76, Nucleated RBC % 0, ESR 36 H, Sodium 134 L, Potassium 4.6, Chloride 103, Carbon Dioxide 26.0, Anion Gap 5, BUN 15, Creatinine 0.90, Est GFR (MDRD) Af Amer 84, Est GFR (MDRD) Non-Af 70, BUN/Creatinine Ratio 16.7, Glucose 97, Calcium 9.9, Phosphorus 2.5, Magnesium 1.7, Total Bilirubin 0.50, AST 75 H, ALT 39, Alkaline Phosphatase 171 H, C-React Prot Ext Range 18.40 H, Total Protein 8.7 H, Albumin 4.0, Globulin 4.7 H, Albumin/Globulin Ratio 0.9, Lipase Cancelled 11/25/23 12:20: Lipase 11/25/23 13:15: Lactic Acid 0.9 11/25/23 13:45: Urine Color Yellow, Urine Clarity Clear, Urine pH 6.5, Ur Specific [place] 1.010, Urine Protein 15 H, Urine Glucose (UA) Normal, Urine Ketones Negative, Urine Occult Blood Negative, Urine Nitrite Negative, Urine Bilirubin Negative, Urine Urobilinogen Normal, Ur Leukocyte Esterase 25 H, Urine RBC 0 SEEN, Urine WBC 0-5 SEEN, Ur Squamous Epith Cells 0-5 SEEN, Urine Bacteria 0 SEEN, Urine Mucus 0 SEEN 11/25/23 20:28: Hgb 13.1, Hct 40.4 11/26/23 00:09: Hgb 12.2, Hct 36.7 L 11/26/23 06:38: WBC 6.3, RBC 4.41, Hgb 12.7, Hct 39.5, MCV 89.6, MCH 28.8, MCHC 32.2, RDW Std Deviation 41.5, RDW Coeff of Alex 12.6, Plt Count 385, MPV 9.8, Immature Gran % (Auto) 0.200, Neut % (Auto) 64.9, Lymph % (Auto) 20.3, Thayer % (Auto) 9.3, Eos % (Auto) 4.4, Baso % (Auto) 0.9, Absolute Neuts (auto) 4.1, Absolute Lymphs (auto) 1.29, Nucleated RBC % 0 Micro: Microbiology 11/25/23 12:20 Stool Stool Occult Blood (ESME) - Final Occult Blood Positive Radiography Diagnostic Testing: Radiology Impression Abdomen/Pelvis CT 11/25/23 12:17 IMPRESSION: Multiple hypodense nodules seen in the liver as described superimposed on diffuse fatty infiltration. Hepatic metastatic deposits should be ruled out. A large amount of fecal material is seen throughout the colon. There is abnormal thickening of the sigmoid colon as described. Increased markings are seen along the antimesenteric side of the omentum at the level of the sigmoid colon. Small adenopathy should BE ruled out. Enlarged fibroid uterus. Electronically Signed: Oleg Rodriguez MD at 14:32 EDT , ADDENDUM: 11/25/23 3913 IMPRESSION: undefined Physical Exam Const alert and no apparent distress HEENT head/scalp atraumatic and moist oral mucous membranes Resp normal respiratory effort, no retractions, no use of accessory muscles and clear to auscultation bilaterally Cardio regular rate, regular rhythm, S1 normal heart sound and S2 normal heart sound GI normal to inspection, nondistended, normoactive bowel sounds, soft to palpation and non-tender Psych Psych Narrative: flat affect. Assessment & Plan Assessment/Plan (1) Rectal bleed: PLAN: Plan GI bleed * May be due to sigmoid mass * GI consult * Doubt upper source of bleeding, DC IV PPI. Sigmoid mass * Concern for hepatic metastasis. * GI consult, plan for colonoscopy * CEA level Elevated TSH * already on levothyroxine * check FT4 Chronic conditions: * Anxiety and depression: We will continue patient on citalopram regimen. * Hypothyroidism: We will continue patient home levothyroxine regimen. * Obesity: Weight loss and lifestyle changes encouraged. DVT prophylaxis: SCDs. CODE STATUS: Full code. Charges/Coding Visit Charges Inpatient E&M: 15929 Subs Hosp L2
[2023-11-26 07:45] LABS: AST(SGOT) 60 U/L (15-37); Alanine Aminotransfer ALT/SGPT 33 U/L (13-56); Albumin, Serum 3.7 g/dL (3.2-5.0); Alkaline Phosphatase 155 U/L (45-117); Anion Gap 4 (5-15); BUN 9 mg/dL (7-18); BUN/Creat Ratio 11.6 RATIO (10-20); Calcium,Total 8.5 mg/dL (8.5-10.1); Chloride 110 mmol/L (98-107); Creatinine, Serum 0.77 mg/dL (0.55-1.02); EST Glomerular Filtration Rate 83 mL/min (>60); Est Glom Filt Rate - Afr Amer 100 mL/min (>60); Estimated Creatinine Clearance 96.07 ml/min; Globulin 3.8 g/dL (2.2-4.2); Glucose 97 mg/dL (74-106); Potassium 3.7 mmol/L (3.5-5.1); Protein, Total 7.5 g/dL (6.4-8.2); Sodium Level 140 mmol/L (136-145)
[2023-11-26 12:02] LABS: T4 Free Direct 1.06 ng/dL (0.76-1.46)
--- NOTE | 2023-11-26 12:05 | CASEMGMT ---
VARSHA MONTALVO Assessment: Face to Face with pt for initial transition planning/care coordination assessment. RN KATIA introduced self and role at [facility], pt voices understanding and consents to assessment. Pt is A&O x4 and answers all questions appropriately at this time. Pt lying in bed in no distress. Care providers, pharmacy, and demographics verified/updated. Admitting Dx: suspected colon cancer with mets, GIB PCP:Blanca Adame MACHINE ZIPPER TRIMMER Specialists:MAURIZIO Venegas [facility] Insurance: [employer] Prescription Benefit: yes LNOK: Mona Higgins, friend Living Arrangements: Pt lives with 2 adult children in a bi level home with 5 steps to enter without a rail. Pt reports she is I in ADL's and denies concerns at home. Transportation: Pt drives self and denies concerns with transportation. DME:Denies HHC/SNF: Denies hx of Pt states no concerns with going home at time of dc. Pt states no further concerns/needs. CM to follow. Advised pt to ask CM if any further question/concerns/needs arise, voices understanding. Pt Goal: Home Plan: Home Lissy MADDOX CM
[2023-11-26] MEDS: Lactated Ringers 1,000 ML 15 ML IV (15:04)
--- NOTE | 2023-11-26 16:00 | COLBX_PTH ---
PATIENT: CHRIS NIX LOC: MS3 U#:[id number] AGE/SX: 53/F ROOM: [facility] [place]25/[address]: Dr. Eugenio Barr DO : 1970 BED: 1 DIS: 11/30/2023 SPEC #: [id number] RECD: 11/27/23 05:50 STATUS: MAYELA REQ #: [id number] MERCEDES: 11/26/23 16:[address]: Mark Callahan DEPT: SURGICAL PATHOLOGY RECD BY: Herlinda Aldrich ENTERED: 11/27/23 08:57 SP TYPE: COLON BX OTHR DR: MD Dr. Lorenzo Abdul DO Jessica Witmer, QUILT STUFFER-C Tissues: Sigmoid colon biopsy Procedures: Surgery Specimen Level IV Comments: @ Ordering doctor for SUIV edited from to @ by LIANA at 11/27/23926 @ Submitting doctor edited from to @ by LIANA at 11/27/2327 HEADER OPERATION: Colonoscopy, biopsy, tattoo PRE-OP DIAGNOSIS: Rectal bleed TISSUE SUBMITTED: Sigmoid mass biopsy MICROSCOPIC DIAGNOSIS Sigmoid mass, biopsy: Invasive well differentiated adenocarcinoma. See comment. / 11/28/2023 COMMENT Results of microsatellite instability by immunohistochemistry will be reported separately ([id number]). Case has been reviewed in consultation with Dr. Henry who concurs with the above diagnosis. IDC:AM MICROSCOPIC DESCRIPTION Slides are reviewed. GROSS DESCRIPTION Received in fixative is one container labeled with the patient's name and designated Sigmoid mass. The specimen consists of multiple irregular fragments of light rhodes soft tissue that in aggregate measure 1.5 x 0.5 x 0.1 cm. The specimen is totally submitted in one cassette. / 11/27/23 TC:0 CPT:85283
--- NOTE | 2023-11-26 17:17 | OP.CCLET_ITS ---
11/26/2023 Blanca Adame Re : Colonoscopy procedure for Maryan Chacon Dear Wendi This procedure was performed on Sunday, November 26, 2023. My impressions and recommendations are as follows: Impressions : - Stricture in the sigmoid colon. Biopsied. - Likely malignant partially obstructing tumor in the recto-sigmoid colon and in the sigmoid colon. Biopsied. - Malignant-appearing tumor in the colon. Tissue was removed. Recommendations : - Return patient to hospital walker for ongoing care. - Resume previous diet. - Continue present medications. - Await pathology results. - Repeat colonoscopy is recommended. The colonoscopy date will be determined after pathology results from today's exam become available for review. My findings are described in the full procedure note, which is enclosed. If I can be of further assistance, please feel free to contact me at . Sincerely, Mark Callahan, 11/26/2023 5:16:31 PM This report has been signed electronically.
--- NOTE | 2023-11-26 17:17 | OP.COLON_ITS ---
Patient Name: Maryan Chacon Procedure Date: 11/26/2023 3:44 PM Date of : 1970 Age: 53 Procedure: Colonoscopy Indications: Hematochezia, Acute post hemorrhagic anemia Providers: Mark Callahan DO Medicines: Monitored Anesthesia Care Patient Profile: This is a 53 year old female. Refer to note in patient chart for documentation of history and physical. Last Colonoscopy: none. The patient's first colonoscopy is today. Complications: No immediate complications. Procedure: Pre-Anesthesia Assessment: - Prior to the procedure, a History and Physical was performed, and patient medications and allergies were reviewed. The patient is competent. The risks and benefits of the procedure and the sedation options and risks were discussed with the patient. All questions were answered and informed consent was obtained. Patient identification and proposed procedure were verified by the physician in the pre-procedure area. Mental Status Examination: alert and oriented. Airway Examination: normal oropharyngeal airway and neck mobility. Respiratory Examination: clear to auscultation. CV Examination: normal. Prophylactic Antibiotics: The patient does not require prophylactic antibiotics. Prior Anticoagulants: The patient has taken no anticoagulant or antiplatelet agents. ASA Grade Assessment: II - A patient with mild systemic disease. After reviewing the risks and benefits, the patient was deemed in satisfactory condition to undergo the procedure. The anesthesia plan was to use monitored anesthesia care (MAC). Immediately prior to administration of medications, the patient was re-assessed for adequacy to receive sedatives. The heart rate, respiratory rate, oxygen saturations, blood pressure, adequacy of pulmonary ventilation, and response to care were monitored throughout the procedure. The physical status of the patient was re-assessed after the procedure. After I obtained informed consent, the scope was passed under direct vision. Throughout the procedure, the patient's blood pressure, pulse, and oxygen saturations were monitored continuously. The pediatric colonoscope was introduced through the anus and advanced to the sigmoid colon. The colonoscopy was performed without difficulty. The patient tolerated the procedure well. The quality of the bowel preparation was good. Anatomical landmarks were photographed. Scope In: 4:49:00 PM Scope Out: 5:03:58 PM Total Procedure Duration Time 0 hours 14 minutes 58 seconds Findings: The perianal and digital rectal examinations were normal. A malignant-appearing, intrinsic severe stenosis measuring 5 cm (in length) x 4 mm (inner diameter) was found in the sigmoid colon and was non-traversed. Biopsies were taken with a cold forceps for histology. Verification of patient identification for the specimen was done. Estimated blood loss was minimal. An ulcerated partially obstructing large mass was found in the recto-sigmoid colon and in the sigmoid colon. The mass was circumferential. Oozing was present. This was biopsied with a cold forceps for histology. Verification of patient identification for the specimen was done. Estimated blood loss was minimal. Impression: - Stricture in the sigmoid colon. Biopsied. - Likely malignant partially obstructing tumor in the recto-sigmoid colon and in the sigmoid colon. Biopsied. - Malignant-appearing tumor in the colon. Tissue was removed. Recommendation: - Return patient to hospital walker for ongoing care. - Resume previous diet. - Continue present medications. - Await pathology results. - Repeat colonoscopy is recommended. The colonoscopy date will be determined after pathology results from today's exam become available for review. Procedure Code(s): --- Professional --- 88211, 52, Colonoscopy, flexible; with biopsy, single or multiple CPT copyright 2021 [employer]. All rights reserved. The codes documented in this report are preliminary and upon slusher operator review may be revised to meet current compliance requirements. Mark Callahan DO 11/26/2023 5:16:31 PM This report has been signed electronically. Number of Addenda: 0 Note Initiated On: 11/26/2023 3:44 PM
--- NOTE | 2023-11-26 17:31 | RAD_ITS ---
STUDY: X-RAY - ABDOMEN/PELVIS REASON FOR EXAM: Female, 53 years old. ABDOMINAL PAIN TECHNIQUE: KUB COMPARISON: None. FINDINGS: Normal visualized lung bases. Mild nonspecific ileus.. There is no demonstrated free abdominal air. The visualized liver, spleen and kidneys are grossly normal in size and morphology. Surgical clips noted within the abdomen and pelvis bilaterally.. Normal visualized osseous structures. RAD/Abdomen Single View (Portable) IMPRESSION: Mild ileus. No evidence for small bowel obstruction or pneumoperitoneum Electronically Signed: Rafael Dickerson MD at 18:01 EDT ,
[2023-11-26] MEDS: Morphine 2 MG/ML Syringe IV (17:42)
[2023-11-26] MEDS: Morphine 4 MG/ML Syringe IV (17:43)
[2023-11-26] MEDS: Temazepam 15 MG Capsule PO (21:26)
[2023-11-26] MEDS: busPIRone 5 MG Tablet 20 MG PO (21:26)
[2023-11-26] MEDS: Mag Hydrox/Al Hydrox/Simeth 30 ML UDC PO (21:26)
[2023-11-27] MEDS: Acetaminophen 325 MG Tablet 650 MG PO ×2 (00:38→21:19)
[2023-11-27 00:45] VITALS: BMI 28.8
[2023-11-27 03:05] VITALS: BP 108/64; PULSE 80; RESP 14; TEMP 36.6; O2SAT 98
[2023-11-27 04:07] LABS: Carcinoembryonic Antigen 9.4 ng/mL (0.0-4.7)
[2023-11-27] MEDS: Levothyroxine 112 MCG Tablet PO (05:24)
[2023-11-27 07:03] VITALS: O2SAT 95
--- NOTE | 2023-11-27 07:24 | PN.HOSP_ITS ---
Reason for Visit Reason for Visit: Diagnoses Malignant neoplasm of colon, unspecified (11/25/23) Hemorrhage of anus and rectum (11/25/23) Unspecified abdominal pain (11/25/23) Subjective Subjective Still with generalized abdominal pain. Objective Data Objective Data Vital Signs: Vital Signs Temp Pulse Resp BP Pulse Ox O2 Del Method 36.6 C 80 14 108/64 98 Room Air 11/27/23 03:05 11/27/23 03:05 11/27/23 03:05 11/27/23 03:05 11/27/23 03:05 11/27/23 03:05 Oxygen Delivery Method Room Air Weight: 86.3 kg Body Mass Index (BMI) 28.8 Intake & Output: Intake and Output for Last 24 Hours 11/25/23 11/26/23 11/27/23 23:59 23:59 23:59 Intake Total 2297.5 / 2297.5 300 / 300 Balance 2297.5 / 2297.5 300 / 300 Lab / Micro Data 11/26/23 06:38 11/26/23 06:38 Labs: Laboratory Results - last 24 hr 11/25/23 15:40: Carcinoembryonic Ag 9.4 H 11/26/23 06:38: Sodium 140, Potassium 3.7, Chloride 110 H, Carbon Dioxide 26.0, Anion Gap 4 L, BUN 9, Creatinine 0.77, Estim Creat Clear Calc 96.07, Est GFR (MDRD) Af Amer 100, Est GFR (MDRD) Non-Af 83, BUN/Creatinine Ratio 11.6, Glucose 97, Calcium 8.5, Total Bilirubin 0.50, AST 60 H, ALT 33, Alkaline Phosphatase 155 H, Total Protein 7.5, Albumin 3.7, Globulin 3.8, Albumin/Globulin Ratio 1.0, TSH 12.60 H, Free T4 1.06 Micro: Microbiology 11/25/23 12:20 Stool Stool Occult Blood (ESME) - Final Occult Blood Positive Radiography Diagnostic Testing: Radiology Impression Chest CT 11/26/23 05:55 IMPRESSION: Heterogeneous enlargement of the thyroid gland with a substernal extension as described. Correlation with ultrasound recommended. No evidence of the pulmonary mass or infiltration. Electronically Signed: Oleg Rodriguez MD at 14:07 EDT , KUB X-Ray 11/26/23 17:31 IMPRESSION: Mild ileus. No evidence for small bowel obstruction or pneumoperitoneum Electronically Signed: Rafael Dickerson MD at 18:01 EDT , Physical Exam Const alert and no apparent distress HEENT head/scalp atraumatic and moist oral mucous membranes Resp normal respiratory effort, no retractions, no use of accessory muscles and clear to auscultation bilaterally Cardio regular rate, regular rhythm, S1 normal heart sound and S2 normal heart sound GI normal to inspection, nondistended, normoactive bowel sounds and soft to palpation GI Narrative: mild diffuse generalized abdominal pain. Assessment & Plan Assessment/Plan (1) Rectal bleed: PLAN: Plan GI bleed * 2/2 sigmoid mass * Doubt upper source of bleeding, DC IV PPI. * Hemoglobin stable. Sigmoid mass * With large hepatic metastasis and sigmoid stricture. * Colonscopy on 11/25: stricture in the sigmoid colon that was biopsied. Likely malignant partially obstructing tumor in the recto-sigmoid colon and in the sigmoid colon. * Given the stricture, Dr. Callahan reached out to Dr. Petersen who advised transfer to tertiary facility. DW patient and her mother. She ok with [facility]. I re ached out to [facility] and provided the information. * CEA level 9.4 Elevated TSH * already on levothyroxine * Free T4 WNL. No additional work up at this time. Chronic conditions: * Anxiety and depression: We will continue patient on citalopram regimen. * Hypothyroidism: We will continue patient home levothyroxine regimen. * Obesity: Weight loss and lifestyle changes encouraged. DVT prophylaxis: SCDs. CODE STATUS: Full code. Charges/Coding Visit Charges Inpatient E&M: 72006 Subs Hosp L2
[2023-11-27] MEDS: proCHLORPERazine 10 MG/2 ML Vial 5 MG IV (07:36)
[2023-11-27] MEDS: 0.9% Saline Lock 10 ML Syringe IV (07:37)
[2023-11-27 08:51] VITALS: BP 118/73; PULSE 97; RESP 16; TEMP 36.6; O2SAT 98
[2023-11-27] MEDS: Citalopram 40 MG TABLET PO (09:00)
[2023-11-27] MEDS: Loratadine 10 MG Tablet PO (09:00)
[2023-11-27] MEDS: busPIRone 5 MG Tablet 20 MG PO ×2 (09:00→21:19)
[2023-11-27] MEDS: Menthol/Lanolin/Calamine/Znox 113 GM Tube 1 APPLIC TOPICAL ×2 (09:01→21:20)
--- NOTE | 2023-11-27 09:11 | CASEMGMT ---
According to [facility]'s website, the following tertiary facilities are in network: [facility], [facility], [facility], [facility], [facility], [facility], [facility] and .
--- NOTE | 2023-11-27 13:25 | DS.PCM_ITS ---
Providers Date of Admission: 11/25/23 Primary Care Physician: SILVIA Nation Consultations 11/25/23 18:11 Consult: Gastroenterology Routine Consulting Provider: Pradeep Gastroenterology Reason for Consult: Suspected colon CA with mets EMERGENT Consult: No MD Notified: Yes Date Notified: 11/25/23 Time Notified: 16:03 Method of Notification: ED Physician Initiated Reason For Visit: SUSPECTED COLON CA W/ METS, GI BLEED Diagnosis Discharge Diagnosis (1) Rectal bleed: Status: Acute Code(s): K62.5 - Hemorrhage of anus and rectum Plan GI bleed * 2/2 sigmoid mass * Doubt upper source of bleeding, DC IV PPI. * Hemoglobin stable. Sigmoid mass * With large hepatic metastasis and sigmoid stricture. * Colonscopy on 11/25: stricture in the sigmoid colon that was biopsied. Likely malignant partially obstructing tumor in the recto-sigmoid colon and in the sigmoid colon. * Given the stricture, Dr. Callahan reached out to Dr. Petersen who advised transfer to tertiary facility. DW patient and her mother. She ok with [facility]. Pt accepted to [facility]. Awaiting on open bed. * CEA level 9.4 Elevated TSH * already on levothyroxine * Free T4 WNL. No additional work up at this time. Chronic conditions: * Anxiety and depression: We will continue patient on citalopram regimen. * Hypothyroidism: We will continue patient home levothyroxine regimen. * Obesity: Weight loss and lifestyle changes encouraged. DVT prophylaxis: SCDs. CODE STATUS: Full code. Medications at Discharge Home Medications acetaminophen 500 mg capsule 500 mg PO DAILY 11/25/23 buspirone 10 mg tablet 20 mg PO BID 11/25/23 citalopram 40 mg tablet 40 mg PO DAILY 11/25/23 estradiol 0.5 mg tablet 0.5 mg PO DAILY 11/25/23 levothyroxine 112 mcg tablet 112 mcg PO DAILY 11/25/23 loratadine 10 mg tablet (Allerclear) 10 mg PO DAILY 11/25/23 progesterone micronized 200 mg capsule 200 mg PO DAILY 11/25/23 turmeric 400 mg capsule 400 mg PO DAILY 11/25/23 Weight / BMI Weight Weight: 86.3 kg Body Mass Index (BMI) 28.8 ABG / Lab / Microbiology Data 11/26/23 06:38 11/26/23 06:38 Laboratory: Laboratory Results - last 24 hr 11/25/23 15:40: Carcinoembryonic Ag 9.4 H Microbiology: Microbiology 11/25/23 12:20 Stool Stool Occult Blood (ESME) - Final Occult Blood Positive Radiography Diagnostic Testing: Radiology Impression Chest CT 11/26/23 05:55 IMPRESSION: Heterogeneous enlargement of the thyroid gland with a substernal extension as described. Correlation with ultrasound recommended. No evidence of the pulmonary mass or infiltration. Electronically Signed: Oleg Rodriguez MD at 14:07 EDT , KUB X-Ray 11/26/23 17:31 IMPRESSION: Mild ileus. No evidence for small bowel obstruction or pneumoperitoneum Electronically Signed: Rafael Dickerson MD at 18:01 EDT , Meaningful Use Info Ischemic Stroke Statin Dosing Therapy Reference: STATIN DOSE THERAPY REFERENCE: * Patients > 75 years receive moderate or high dose statin therapy. * Patients 75 years or YOUNGER should receive HIGH intensity statin dose unless contraindicated. You will be required to document reason for non-treatment if statin daily dose does not meet guidelines. HIGH DOSE STATIN THERAPY DAILY Atorvastatin > than or = to 40 mg Rosuvastatin > than or = to 20 mg Amlodipine + Atorvastatin > than or = to 2.5/40 mg Ezetimibe + Simvastatin 10/80 mg Simvastatin 80mg Discharge Plan Admission Admit Date/Time: 11/25/23 15:11 Attending Provider: Lorenzo Frank Primary Care Provider: Blanca Adame NP Consulting Providers: Angella Rodriguez Discharge Orders/Prescriptions Prescriptions: No Action citalopram 40 mg tablet 40 mg PO DAILY progesterone micronized 200 mg capsule 200 mg PO DAILY Rx Instructions: ON FIRST 12 DAYS OF MONTH estradiol 0.5 mg tablet 0.5 mg PO DAILY levothyroxine 112 mcg tablet 112 mcg PO DAILY buspirone 10 mg tablet 20 mg PO BID Patient Comments: PT STATES TYPICALLY ONLY REMEMBERS TO TAKE 2T 1XD loratadine [Allerclear] 10 mg tablet 10 mg PO DAILY turmeric 400 mg capsule 400 mg PO DAILY Patient Comments: PT UNSURE OF STRENGTH acetaminophen 500 mg capsule 500 mg PO DAILY Referrals / Follow Up: Blanca Adame HEEL SEAT FITTER MACHINE, HEEL SEAT FITTER MACHINE-C [Primary Care Provider] -
--- NOTE | 2023-11-27 18:08 | EX.PCM.PN.GI ---
Subjective Subjective Patient underwent colonoscopy yesterday. Unfortunately she was discovered to have 2 large masses in the sigmoid colon. One was able to be transversed the other 1 was not. There the 2 areas were tattooed. Objective Data Objective Data Vital Signs: Vital Signs Temp Pulse Resp BP Pulse Ox O2 Del Method 97.8 F 97 16 118/73 98 Room Air 11/27/23 08:51 11/27/23 08:51 11/27/23 08:51 11/27/23 08:51 11/27/23 08:51 11/27/23 08:51 Oxygen Delivery Method Room Air Weight: 190 lb 4.143 oz Body Mass Index (BMI) 28.8 Intake & Output: Intake and Output for Last 24 Hours 11/25/23 11/26/23 11/27/23 23:59 23:59 23:59 Intake Total 2297.5 / 2297.5 300 / 300 Balance 2297.5 / 2297.5 300 / 300 Lab / Micro Data 11/26/23 06:38 11/26/23 06:38 Labs: Laboratory Results - last 24 hr 11/25/23 15:40: Carcinoembryonic Ag 9.4 H Micro: Microbiology 11/25/23 12:20 Stool Stool Occult Blood (ESME) - Final Occult Blood Positive Physical Exam Const alert and no apparent distress HEENT head/scalp atraumatic and moist oral mucous membranes Resp normal respiratory effort, no retractions, no use of accessory muscles and clear to auscultation bilaterally Cardio regular rate, regular rhythm, S1 normal heart sound and S2 normal heart sound GI normal to inspection, nondistended, normoactive bowel sounds and soft to palpation GI Narrative: mild diffuse generalized abdominal pain. Assessment & Plan Assessment/Plan (1) Abdominal pain: (2) Carcinoma of colon: (3) Rectal bleed: (4) Metastasis to liver: PLAN: Plan 53-year-old with lower GI bleeding discovered to have a likely adenocarcinoma of the colon with metastasis to the liver and possible peritoneal carcinomatosis. She has not shown signs of large bowel obstruction at this time. Patient agrees to transfer to tertiary care center for multidisciplinary approach likely involving oncology and colorectal surgery. CEA was sent and biopsies were taken along with tattooing in the sigmoid colon. Patient is okay with plan. Charges/Coding Visit Charges Inpatient E&M: 39076 Subs Hosp L3
[2023-11-27 21:02] VITALS: BP 124/63; PULSE 88; RESP 18; TEMP 36.8; O2SAT 96
[2023-11-27] MEDS: Temazepam 15 MG Capsule PO (21:18)
[2023-11-28 00:30] VITALS: BMI 28.6
[2023-11-28 06:13] VITALS: BP 106/59; PULSE 74; RESP 16; TEMP 36.7; O2SAT 96
[2023-11-28] MEDS: Levothyroxine 112 MCG Tablet PO (06:19)
--- NOTE | 2023-11-28 07:36 | PN.HOSP_ITS ---
Reason for Visit Reason for Visit: Diagnoses Malignant neoplasm of colon, unspecified (11/25/23) Secondary malignant neoplasm of liver and intrahepatic bile duct (11/25/23) Hemorrhage of anus and rectum (11/25/23) Unspecified abdominal pain (11/25/23) Subjective Subjective Had abdominal cramping and then had bloody bowel movements. Then subsequently started get short of breath and started having right-sided chest pain. Objective Data Objective Data Vital Signs: Vital Signs Temp Pulse Resp BP Pulse Ox O2 Del Method 36.7 C 74 16 106/59 L 96 Room Air 11/28/23 06:13 11/28/23 06:13 11/28/23 06:13 11/28/23 06:13 11/28/23 06:13 11/28/23 06:13 Oxygen Delivery Method Room Air Weight: 85.8 kg Body Mass Index (BMI) 28.6 Intake & Output: Intake and Output for Last 24 Hours 11/26/23 11/27/23 11/28/23 23:59 23:59 23:59 Intake Total 300 / 500 1000 / 1000 Balance 300 / 500 1000 / 1000 Lab / Micro Data 11/26/23 06:38 11/26/23 06:38 Micro: Microbiology 11/25/23 12:20 Stool Stool Occult Blood (ESME) - Final Occult Blood Positive Physical Exam Const alert and no apparent distress Constitutional Narrative: Anxious. Pacing in her room. Nontoxic. HEENT head/scalp atraumatic Resp normal respiratory effort, no retractions, no use of accessory muscles and clear to auscultation bilaterally Cardio regular rate, regular rhythm, S1 normal heart sound and S2 normal heart sound GI normal to inspection, nondistended, normoactive bowel sounds, soft to palpation, non-tender and non-distended Extremity normal to inspection Neuro Sensorium / Orientation: awake and alert Assessment & Plan Assessment/Plan (1) Rectal bleed: PLAN: Plan GI bleed * 2/2 sigmoid mass * Doubt upper source of bleeding, DC IV PPI. * Hemoglobin stable. Sigmoid mass * Causing sigmoid stricture with large hepatic metastasis * Colonscopy on 11/25: stricture in the sigmoid colon that was biopsied. Likely malignant partially obstructing tumor in the recto-sigmoid colon and in the sigmoid colon. * Given the stricture, Friend reached out to Dr. Petersen who advised transfer to tertiary facility. DW patient and her mother. She ok with [facility]. Pt accepted to [facility]. Awaiting on open bed. * CEA level 9.4 Elevated TSH * already on levothyroxine * Free T4 WNL. No additional work up at this time. Chronic conditions: * Anxiety and depression: We will continue patient on citalopram regimen. Patient had a panic attack on the . Reassurance provided. Will initiate as needed lorazepam. * Hypothyroidism: We will continue patient home levothyroxine regimen. * Obesity: Weight loss and lifestyle changes encouraged. DVT prophylaxis: SCDs. CODE STATUS: Full code. Charges/Coding Visit Charges Inpatient E&M: 24470 Subs Hosp L2
[2023-11-28 08:09] VITALS: BP 114/66; PULSE 80; RESP 18; TEMP 36.7; O2SAT 96
[2023-11-28] MEDS: Citalopram 40 MG TABLET PO (08:14)
[2023-11-28] MEDS: busPIRone 5 MG Tablet 20 MG PO ×2 (08:14→22:05)
[2023-11-28] MEDS: Menthol/Lanolin/Calamine/Znox 113 GM Tube 1 APPLIC TOPICAL ×2 (08:14→22:05)
[2023-11-28] MEDS: Loratadine 10 MG Tablet PO (08:14)
[2023-11-28] MEDS: Acetaminophen 325 MG Tablet 650 MG PO (09:47)
[2023-11-28] MEDS: LORazepam 1 MG Tablet PO (10:38)
--- NOTE | 2023-11-28 11:59 | CASEMGMT ---
Social Work SW did attempt to speak w/pt to offer support. Pt sleeping soundly, SW will try again later as time allows. SHAUN Munoz
[2023-11-28 14:11] VITALS: BP 127/59; PULSE 86; RESP 18; TEMP 36.6; O2SAT 96
[2023-11-28 21:50] VITALS: BP 113/61; PULSE 89; RESP 18; TEMP 36.8; O2SAT 95
[2023-11-28] MEDS: Temazepam 15 MG Capsule PO (22:05)
[2023-11-28] MEDS: Mag Hydrox/Al Hydrox/Simeth 30 ML UDC PO (22:08)
[2023-11-29 01:25] VITALS: BMI 28.6
[2023-11-29 04:21] VITALS: BP 108/47; PULSE 73; RESP 18; TEMP 36.7; O2SAT 96
[2023-11-29] MEDS: Levothyroxine 112 MCG Tablet PO (04:25)
--- NOTE | 2023-11-29 07:20 | PN.HOSP_ITS ---
Reason for Visit Reason for Visit: Diagnoses Malignant neoplasm of colon, unspecified (11/25/23) Secondary malignant neoplasm of liver and intrahepatic bile duct (11/25/23) Hemorrhage of anus and rectum (11/25/23) Unspecified abdominal pain (11/25/23) Subjective Subjective Having low back pain. L sided abdominal pain. Objective Data Objective Data Vital Signs: Vital Signs Temp Pulse Resp BP Pulse Ox O2 Del Method 36.7 C 73 18 108/47 L 96 Room Air 11/29/23 04:21 11/29/23 04:21 11/29/23 04:21 11/29/23 04:21 11/29/23 04:21 11/29/23 04:21 Oxygen Delivery Method Room Air Weight: 85.8 kg Body Mass Index (BMI) 28.6 Intake & Output: Intake and Output for Last 24 Hours 11/27/23 11/28/23 11/29/23 23:59 23:59 23:59 Intake Total 300 / 500 1000 / 1000 Balance 300 / 500 1000 / 1000 Lab / Micro Data 11/29/23 08:21 11/26/23 06:38 Micro: Microbiology 11/25/23 12:20 Stool Stool Occult Blood (ESME) - Final Occult Blood Positive Physical Exam Const alert and no apparent distress Constitutional Narrative: anxious. Resp normal respiratory effort, no retractions, no use of accessory muscles and clear to auscultation bilaterally Cardio regular rate, regular rhythm, S1 normal heart sound and S2 normal heart sound GI normal to inspection, nondistended, normoactive bowel sounds, soft to palpation and non-distended GI Narrative: left sided abdominal pain. Extremity Extremity Narrative: low back pain TTP. Neuro Sensorium / Orientation: awake and alert Assessment & Plan Assessment/Plan (1) Rectal bleed: PLAN: Plan GI bleed * 2/2 sigmoid mass * Doubt upper source of bleeding, DC IV PPI. * Hemoglobin stable. Sigmoid mass * Causing sigmoid stricture with large hepatic metastasis * Colonscopy on 11/25: stricture in the sigmoid colon that was biopsied. Likely malignant partially obstructing tumor in the recto-sigmoid colon and in the sigmoid colon. * Given the stricture, Dr. Callahan reached out to Dr. Petersen who advised transfer to tertiary facility. DW patient and her mother. She ok with [facility]. Pt accepted to [facility]. Awaiting on open bed. * CEA level 9.4 Elevated TSH * already on levothyroxine * Free T4 WNL. No additional work up at this time. Low back pain * musculoskeletal * pt aprehensive about narcotics given family h/o alcohol and drug abuse. * Will utilize lidoderm patch and cyclobenzaprine Chronic conditions: * Anxiety and depression: We will continue patient on citalopram regimen. Patient had a panic attack on the . Reassurance provided. Will initiate as needed lorazepam. * Hypothyroidism: We will continue patient home levothyroxine regimen. * Obesity: Weight loss and lifestyle changes encouraged. DVT prophylaxis: SCDs. CODE STATUS: Full code. Charges/Coding Visit Charges Inpatient E&M: 41904 Subs Hosp L2
[2023-11-29 07:43] VITALS: BP 109/73; PULSE 87; RESP 18; TEMP 36.6; O2SAT 96
[2023-11-29 09:23] LABS: Absolute Lymphocyte Count 1.14 X10^3/uL (0.83-4.51); Absolute Neutrophil Count 4.6 X10^3/uL (2.0-7.7); Basophil# 0.06 X10^3/uL; Basophil% 0.9 % (0-1); Eosinophil# 0.23 X10^3/uL; Eosinophils% 3.6 % (0-5); Hematocrit 41.8 % (37-47); Hemoglobin 13.6 g/dL (12.0-15.0); Lymphocyte # 1.14 X10^3/ul (0.83-4.51); Lymphocyte % 17.6 % (19-41); Mean Corp Hgb Conc 32.5 g/dL (32-36); Mean Corpuscular Volume 89.1 fL (81-99); Monocyte# 0.41 X10^3/uL; Monocyte% 6.3 % (0-10); NRBC Flagged by Analyzer 0 % (0-5); Neutrophil # 4.59 X10^3/uL (2.7-7.7); Neutrophil % 71.1 % (47-70); Platelet Count 386 K/mm3 (150-450); RBC Distribution Width CV 12.7 % (11.6-14.6); RBC Distribution Width SD 41.2 fl (35.1-43.9); Red Blood Count 4.69 M/mm3 (4.2-5.4); White Blood Count 6.5 K/mm3 (4.4-11.0)
[2023-11-29] MEDS: busPIRone 5 MG Tablet 20 MG PO ×2 (10:25→21:05)
[2023-11-29] MEDS: Menthol/Lanolin/Calamine/Znox 113 GM Tube 1 APPLIC TOPICAL ×2 (10:26→21:06)
[2023-11-29] MEDS: Citalopram 40 MG TABLET PO (10:26)
[2023-11-29] MEDS: cycloBENZAPRine HCl 5 MG TABLET PO ×2 (10:26→21:05)
[2023-11-29] MEDS: Loratadine 10 MG Tablet PO (10:26)
[2023-11-29] MEDS: Lidocaine 5% Patch 2 PATCH TOPICAL (10:27)
--- NOTE | 2023-11-29 10:40 | RAD_ITS ---
STUDY: X-RAY - ABDOMEN/PELVIS REASON FOR EXAM: Female, 53 years old. Abdominal pain TECHNIQUE: Single AP view of the abdomen / pelvis. COMPARISON: Comparison is made with prior study November 26, 2023. FINDINGS: Normal visualized lung bases. There is an unremarkable bowel gas pattern. The visualized liver, spleen and kidneys are grossly normal in size and morphology. Surgical clips are seen in the right lower quadrant suggestive of prior appendectomy. A clip from tubal ligation is seen in the left hemipelvis as well as in the right midabdomen. A clip marker is seen in the region of the distal descending colon. Normal visualized osseous structures. RAD/Abdomen Single View (Portable) IMPRESSION: Nonspecific bowel gas pattern. Electronically Signed: Oleg Rodriguez MD at 14:55 EDT ,
[2023-11-29 13:00] VITALS: BP 119/82; PULSE 91; RESP 18; TEMP 37.1; O2SAT 97
--- NOTE | 2023-11-29 14:39 | CASEMGMT ---
Social Work- Cln met with pt to discuss any needs. Pt reports processing new dx and pending surgery well. Pt reports no needs for education, resources, or support at this time. HAWA Mckeon
[2023-11-29] MEDS: Acetaminophen 325 MG Tablet 650 MG PO ×2 (14:50→21:05)
--- NOTE | 2023-11-29 15:53 | CHAPLAIN ---
Type of Pastoral Visit _x__ Initial Visit ___ Follow-up Visit ___ On-call Visit ___ General Patient Visit ___ Spiritual Assessment ___ Family Conference ___ Bereavement ___ Rapid Response ___ Code Blue ___ Other (describe below) Pastoral Care Referral From ___ Patient ___ Family _x__ Nurse ___ Physician ___ Entry Level Software Engineer ___ Auto Leasing Manager ___ Other (describe below) Sacrament/Intervention _x__ Active listening ___ Anointing ___ Restorationism ___ Bereavement ___ Communion _x__ Dana exploration ___ ___ Life review _x__ Prayer ___ Reconciliation ___ Sacrament of Sick _x__ Supportive presence ___ Wedding ___ Other (describe below) Pastoral Comments RN recommended offer of support to this patient who has had a new diagnosis and will be transferred to another hospital for further treatment; met with patient and offered presence and support; the patient stated that she was tired, had lots on her mind, and has talked a lot already but that she would be glad for a prayer; when asked how she was handling the situation and the news the patient was talkative about the situation; pt admitted that she is feeling overwhelmed and wants to get things clarified and soon; asked about support the patient admits that she has very little family support, has a friend that is a bottling equipment sales representative to whom she can call, and has a very close friend that will be with her at the hospital; encouragement, calm assurance of care, offer of presence given; prayer also given
[2023-11-29 20:59] VITALS: BP 113/77; PULSE 85; RESP 18; TEMP 36.6; O2SAT 98
[2023-11-29] MEDS: Temazepam 15 MG Capsule PO (21:05)
[2023-11-29] MEDS: Mag Hydrox/Al Hydrox/Simeth 30 ML UDC PO (21:16)
[2023-11-30 04:45] VITALS: BP 101/65; PULSE 75; RESP 18; TEMP 36.6; O2SAT 97
[2023-11-30] MEDS: cycloBENZAPRine HCl 5 MG TABLET PO (05:13)
[2023-11-30] MEDS: Levothyroxine 112 MCG Tablet PO (05:13)
[2023-11-30 05:41] VITALS: BMI 28.5
[2023-11-30 06:33] LABS: Absolute Lymphocyte Count 1.33 X10^3/uL (0.83-4.51); Basophil# 0.06 X10^3/uL; Eosinophil# 0.26 X10^3/uL; Eosinophils% 4.2 % (0-5); Hematocrit 40.9 % (37-47); Hemoglobin 13.3 g/dL (12.0-15.0); Lymphocyte # 1.33 X10^3/ul (0.83-4.51); Lymphocyte % 21.6 % (19-41); Mean Corp Hgb Conc 32.5 g/dL (32-36); Mean Corpuscular Hgb 28.9 pg (27.0-32.0); Mean Corpuscular Volume 88.7 fL (81-99); Mean Platelet Vol. 10.1 fl (6.2-12.0); Monocyte# 0.48 X10^3/uL; Monocyte% 7.8 % (0-10); NRBC Flagged by Analyzer 0 % (0-5); Neutrophil # 4.01 X10^3/uL (2.7-7.7); Neutrophil % 65.2 % (47-70); Platelet Count 374 K/mm3 (150-450); RBC Distribution Width CV 12.6 % (11.6-14.6); RBC Distribution Width SD 40.9 fl (35.1-43.9); Red Blood Count 4.61 M/mm3 (4.2-5.4); White Blood Count 6.2 K/mm3 (4.4-11.0)
[2023-11-30 07:06] LABS: ALB/GLOB Ratio 0.9 RATIO (0.9-2.4); AST(SGOT) 59 U/L (15-37); Alanine Aminotransfer ALT/SGPT 29 U/L (13-56); Albumin, Serum 3.5 g/dL (3.2-5.0); Alkaline Phosphatase 171 U/L (45-117); Anion Gap 6 (5-15); BUN 10 mg/dL (7-18); BUN/Creat Ratio 13.2 RATIO (10-20); Calcium,Total 9.1 mg/dL (8.5-10.1); Chloride 105 mmol/L (98-107); Creatinine, Serum 0.76 mg/dL (0.55-1.02); EST Glomerular Filtration Rate 85 mL/min (>60); Est Glom Filt Rate - Afr Amer 103 mL/min (>60); Estimated Creatinine Clearance 96.96 ml/min; Globulin 4.1 g/dL (2.2-4.2); Glucose 91 mg/dL (74-106); Potassium 3.8 mmol/L (3.5-5.1); Protein, Total 7.6 g/dL (6.4-8.2); Sodium Level 139 mmol/L (136-145)
--- NOTE | 2023-11-30 07:32 | PN.GI_ITS ---
Subjective Subjective Patient is not having any abdominal pain at this time. She is scheduled for transferred to [facility] today. Objective Data Objective Data Vital Signs: Vital Signs Temp Pulse Resp BP Pulse Ox O2 Del Method 97.8 F 92 18 107/73 98 Room Air 11/30/23 08:11 11/30/23 08:11 11/30/23 08:11 11/30/23 08:11 11/30/23 08:11 11/30/23 08:11 Oxygen Delivery Method Room Air Weight: 188 lb 11.451 oz Body Mass Index (BMI) 28.5 Intake & Output: Intake and Output for Last 24 Hours 11/28/23 11/29/23 11/30/23 23:59 23:59 23:59 Intake Total 1000 / 1000 500 / 500 Balance 1000 / 1000 500 / 500 Lab / Micro Data 11/30/23 05:36 11/30/23 05:36 Labs: Laboratory Results - last 24 hr 11/30/23 05:36: WBC 6.2, RBC 4.61, Hgb 13.3, Hct 40.9, MCV 88.7, MCH 28.9, MCHC 32.5, RDW Std Deviation 40.9, RDW Coeff of Alex 12.6, Plt Count 374, MPV 10.1, Immature Gran % (Auto) 0.200, Neut % (Auto) 65.2, Lymph % (Auto) 21.6, Lea % (Auto) 7.8, Eos % (Auto) 4.2, Baso % (Auto) 1.0, Absolute Neuts (auto) 4.0, Absolute Lymphs (auto) 1.33, Nucleated RBC % 0, Sodium 139, Potassium 3.8, Chloride 105, Carbon Dioxide 28.0, Anion Gap 6, BUN 10, Creatinine 0.76, Estim Creat Clear Calc 96.96, Est GFR (MDRD) Af Amer 103, Est GFR (MDRD) Non-Af 85, BUN/Creatinine Ratio 13.2, Glucose 91, Calcium 9.1, Total Bilirubin 0.40, AST 59 H, ALT 29, Alkaline Phosphatase 171 H, Total Protein 7.6, Albumin 3.5, Globulin 4.1, Albumin/Globulin Ratio 0.9 Micro: Microbiology 11/25/23 12:20 Stool Stool Occult Blood (ESME) - Final Occult Blood Positive Physical Exam Const alert and no apparent distress Constitutional Narrative: anxious. Resp normal respiratory effort, no retractions, no use of accessory muscles and clear to auscultation bilaterally Cardio regular rate, regular rhythm, S1 normal heart sound and S2 normal heart sound GI normal to inspection, nondistended, normoactive bowel sounds, soft to palpation and non-distended GI Narrative: left sided abdominal pain. Extremity Extremity Narrative: low back pain TTP. Neuro Sensorium / Orientation: awake and alert Assessment & Plan Assessment/Plan (1) Rectal bleed: PLAN: Plan GI bleed * 2/2 sigmoid mass * Doubt upper source of bleeding, DC IV PPI. * Hemoglobin stable. Sigmoid mass * Causing sigmoid stricture with large hepatic metastasis * Colonscopy on 11/25: stricture in the sigmoid colon that was biopsied. Likely malignant partially obstructing tumor in the recto-sigmoid colon and in the sigmoid colon. * Given the stricture, Dr. Callahan reached out to Dr. Petersen who advised transfer to tertiary facility. DW patient and her mother. She ok with [facility]. Pt accepted to [facility]. Awaiting on open bed. * CEA level 9.4 CODE STATUS: Full code. Charges/Coding Visit Charges Inpatient E&M: 60482 Subs Hosp L3
[2023-11-30 08:11] VITALS: BP 107/73; PULSE 92; RESP 18; TEMP 36.6; O2SAT 98
[2023-11-30] MEDS: Loratadine 10 MG Tablet PO (08:15)
[2023-11-30] MEDS: busPIRone 5 MG Tablet 20 MG PO (08:15)
[2023-11-30] MEDS: Citalopram 40 MG TABLET PO (08:15)
[2023-11-30] MEDS: Lidocaine 5% Patch 2 PATCH TOPICAL (08:16)
--- NOTE | 2023-11-30 18:25 | DS.PCM_ITS ---
Providers Date of Admission: 11/25/23 Date of Discharge: 11/30/23 Primary Care Physician: SILVIA Naiton Consultations 11/25/23 18:11 Consult: Gastroenterology Routine Consulting Provider: Pradeep Gastroenterology Reason for Consult: Suspected colon CA with mets EMERGENT Consult: No MD Notified: Yes Date Notified: 11/25/23 Time Notified: 16:03 Method of Notification: ED Physician Initiated Reason For Visit: SUSPECTED COLON CA W/ METS, GI BLEED Diagnosis Discharge Diagnosis (1) Rectal bleed: Status: Acute Code(s): K62.5 - Hemorrhage of anus and rectum Plan 1. Adenocarcinoma of the sigmoid colon #2 likely metastatic adenocarcinoma of the colon to the liver #3 bright red rectal bleeding secondary to #1 #4 hypothyroidism #5 chronic anxiety and depression Medications at Discharge Home Medications acetaminophen 500 mg capsule 500 mg PO DAILY 11/25/23 buspirone 10 mg tablet 20 mg PO BID 11/25/23 citalopram 40 mg tablet 40 mg PO DAILY 11/25/23 estradiol 0.5 mg tablet 0.5 mg PO DAILY 11/25/23 levothyroxine 112 mcg tablet 112 mcg PO DAILY 11/25/23 loratadine 10 mg tablet (Allerclear) 10 mg PO DAILY 11/25/23 progesterone micronized 200 mg capsule 200 mg PO DAILY 11/25/23 turmeric 400 mg capsule 400 mg PO DAILY 11/25/23 Hospital Course Operations None Procedures Colonoscopy Summary of Care Provided Minutes Spent on Discharge: 30 Hospital Course: 53-year-old white female was seen in the emergency room at [facility] with complaints of abdominal pain which had started initially 6 weeks prior along with some bloody diarrhea. Patient complained of feeling bloated and uncomfortable, she had been referred to gastroenterology and she had upcoming appointment in December 2023. Workup in the emergency room revealed a normal hemoglobin, patient's urinalysis was unremarkable, CT of the abdomen and pelvis showed multiple hypodense nodule seen in the liver superimposed on diffuse fatty infiltration-this indicated possible metastatic cancer, there is large amount of fecal material seen throughout the colon and there was an abnormal thickening of the sigmoid colon. Patient was admitted to [facility], she was seen in consultation by gastroenterology who performed a colonoscopy which showed what appeared to be probable cancer in the sigmoid colon along with a stricture-colonoscope could not be advanced past the stricture, general surgery was contacted and and it was recommended by them that the patient be transferred to a tertiary facility for further treatment. Biopsies taken in the colon revealed adenocarcinoma. Patient was excepted at [facility], she remained in the hospital here until a bed was available on 11/30/2023. On that date, patient was transferred to [facility] in stable condition, she was not examined by myself on that date. Weight / BMI Weight Weight: 85.6 kg Body Mass Index (BMI) 28.5 ABG / Lab / Microbiology Data 11/30/23 05:36 11/30/23 05:36 Laboratory: Laboratory Results - last 24 hr 11/30/23 05:36: WBC 6.2, RBC 4.61, Hgb 13.3, Hct 40.9, MCV 88.7, MCH 28.9, MCHC 32.5, RDW Std Deviation 40.9, RDW Coeff of Alex 12.6, Plt Count 374, MPV 10.1, Immature Gran % (Auto) 0.200, Neut % (Auto) 65.2, Lymph % (Auto) 21.6, Owen % (Auto) 7.8, Eos % (Auto) 4.2, Baso % (Auto) 1.0, Absolute Neuts (auto) 4.0, Absolute Lymphs (auto) 1.33, Nucleated RBC % 0, Sodium 139, Potassium 3.8, Chloride 105, Carbon Dioxide 28.0, Anion Gap 6, BUN 10, Creatinine 0.76, Estim Creat Clear Calc 96.96, Est GFR (MDRD) Af Amer 103, Est GFR (MDRD) Non-Af 85, BUN/Creatinine Ratio 13.2, Glucose 91, Calcium 9.1, Total Bilirubin 0.40, AST 59 H, ALT 29, Alkaline Phosphatase 171 H, Total Protein 7.6, Albumin 3.5, Globulin 4.1, Albumin/Globulin Ratio 0.9 Microbiology: Microbiology 11/25/23 12:20 Stool Stool Occult Blood (ESME) - Final Occult Blood Positive Meaningful Use Info Meaningful Use Meaningful Use Diagnoses (Choose all that apply): None applicable Ischemic Stroke Statin Dosing Therapy Reference: STATIN DOSE THERAPY REFERENCE: * Patients > 75 years receive moderate or high dose statin therapy. * Patients 75 years or YOUNGER should receive HIGH intensity statin dose unless contraindicated. You will be required to document reason for non-treatment if statin daily dose does not meet guidelines. HIGH DOSE STATIN THERAPY DAILY Atorvastatin > than or = to 40 mg Rosuvastatin > than or = to 20 mg Amlodipine + Atorvastatin > than or = to 2.5/40 mg Ezetimibe + Simvastatin 10/80 mg Simvastatin 80mg Discharge Plan Admission Admit Date/Time: 11/25/23 15:11 Attending Provider: Eugenio Barr Primary Care Provider: Blanca Adame NP Consulting Providers: Eugenio Barr; Lorenzo Frank Discharge Orders/Prescriptions Prescriptions: No Action citalopram 40 mg tablet 40 mg PO DAILY progesterone micronized 200 mg capsule 200 mg PO DAILY Rx Instructions: ON FIRST 12 DAYS OF MONTH estradiol 0.5 mg tablet 0.5 mg PO DAILY levothyroxine 112 mcg tablet 112 mcg PO DAILY buspirone 10 mg tablet 20 mg PO BID Patient Comments: PT STATES TYPICALLY ONLY REMEMBERS TO TAKE 2T 1XD loratadine [Allerclear] 10 mg tablet 10 mg PO DAILY turmeric 400 mg capsule 400 mg PO DAILY Patient Comments: PT UNSURE OF STRENGTH acetaminophen 500 mg capsule 500 mg PO DAILY Referrals / Follow Up: Blanca Adame NP, MORTGAGE LOAN ORIGINATOR-C [Primary Care Provider] - Disposition Disposition (needs filled in before D/C Order can be placed): [facility]
== END 2023-11-30 09:59 | disposition short-term general hospital (02) | DRG 375 ==
LOC: ED 14:55 → MS3 16:48
PROVIDERS: Internal Medicine Gastroenterology; Admitting Provider Family Medicine; Emergency Provider Emergency Medicine; PCP Nurse Practitioner Primary Care; Visit Provider Internal Medicine
PROC: 0DJD8ZZ Inspection of Lower Intestinal Tract, Via Natural or Artificial Opening Endoscopic (ICD-10-PCS; CPT 45378; principal; 2023-11-26 15:55)
DX: C18.7 Malignant neoplasm of sigmoid colon (principal); C78.7 Secondary malignant neoplasm of liver and intrahepatic bile duct; E87.1 Hypo-osmolality and hyponatremia; E03.9 Hypothyroidism, unspecified; F32.A Depression, unspecified; F41.9 Anxiety disorder, unspecified; E66.9 Obesity, unspecified; Z80.1 Family history of malignant neoplasm of trachea, bronchus and lung; Z68.28 Body mass index [BMI] 28.0-28.9, adult
CPT/HCPCS: 36415; 71260; 74018; 74177; 80053; 81001; 81002; 82274; 82378; 83605; 83690; 83735; 84100; 84439; 84443; 85014; 85018; 85025; 85652; 86140; 88305; 88341; 88342; 88368; 94668; 99284; J7030; J7120; Q9967; A4216; A4648; J2405

== ENCOUNTER 2023-12-13 23:24 | Emergency (ER) | payer OTHER, SELFPAY ==
[2023-12-13 23:25] VITALS: BP 132/64; PULSE 92; RESP 16; TEMP 36.4; O2SAT 98; BMI 27.9
[2023-12-13 23:27] VITALS: BP 132/64; PULSE 87; RESP 16; TEMP 36.4; O2SAT 97
--- NOTE | 2023-12-13 23:31 | EDS_ITS ---
HPI History of Present Illness Chief Complaint: Abd Pain [facility] Medical History (Updated 12/14/23 @ 02:[address] Vignesh Partida, DO) Abdominal pain Anxiety Anxiety and depression Carcinoma of colon Depression Hypothyroidism Metastasis to liver Non-smoker Obesity Rectal bleed Shortness of breath on exertion Thyroid disease Wears glasses Wears hearing aid Home Medications buspirone 10 mg tablet 20 mg PO BID 11/25/23 [History Last Taken 11/24/23] citalopram 40 mg tablet 40 mg PO DAILY 11/25/23 [History Last Taken 11/24/23] estradiol 0.5 mg tablet 0.5 mg PO DAILY 11/25/23 [History Last Taken 11/24/23] levothyroxine 112 mcg tablet 112 mcg PO DAILY 11/25/23 [History Last Taken 11/21/23] loratadine 10 mg tablet (Allerclear) 10 mg PO DAILY 11/25/23 [History Last Taken Unknown] progesterone micronized 200 mg capsule 200 mg PO DAILY 11/25/23 [History Last Taken 11/22/23] turmeric 400 mg capsule 400 mg PO DAILY 11/25/23 [History Last Taken 11/24/23] tramadol 50 mg tablet 50 mg PO PRN PRN pain 12/13/23 [History Last Taken Unk nown] ondansetron 4 mg disintegrating tablet 4 mg PO Q8H PRN PRN Nausea #10 tabs 12/14/23 [Rx Last Taken Unknown] oxycodone 5 mg capsule 5 mg PO Q6H PRN pain 5 days #20 caps 12/14/23 [Rx Last Taken Unknown] Allergy/AdvReac Type Severity Reaction Status Date / Time No Known Allergies Allergy Verified 12/13/23 23:27 Family History Mother COPD (chronic obstructive pulmonary disease) Lung cancer Diabetes Father Heart disease Hypertension Surgical History H/O section History of bilateral tubal ligation History of colostomy Hx of appendectomy Hx of colonoscopy S/P laparoscopic colectomy Social History household members: family and children Smoking Status: Never smoker alcohol intake: never substance use type: does not use EXAM Physical Exam Const Vital Signs: 12/13/23 23:25 12/13/23 23:27 12/14/23 00:26 Temperature 97.6 F L 97.6 F L 98.4 F Temperature Source Temporal Temporal Oral Pulse Rate 92 87 78 Respiratory Rate 16 16 18 Blood Pressure 132/64 H 132/64 H 119/67 Blood Pressure Mean 86 86 84 Pulse Ox 98 97 95 Oxygen Delivery Method Room Air Room Air Room Air 12/14/23 01:25 Temperature Temperature Source Pulse Rate 72 Respiratory Rate 18 Blood Pressure 121/72 H Blood Pressure Mean 88 Pulse Ox 94 Oxygen Delivery Method Room Air [facility] [place] Narrative Medical decision making narrative: HISTORY OF PRESENT ILLNESS: 53-year-old female presents with right upper quadrant pain. States she developed acute onset of right-sided pain in the right upper quadrant, right flank and right back. No falls or trauma. No vomiting but notes nausea. No urinary complaints. No abdominal pain. Notes normal ostomy output. Patient denies any saddle anesthesia, urinary retention, bowel or bladder incontinence, lower extremity weakness, fever or IV drug use, no recent spinal manipulation or surgery, no recent urinary catheterization. REVIEW OF SYSTEMS: Pertinent positives: Flank pain, back pain, right upper quadrant abdominal pain Pertinent negatives: Vomiting, chest pain, shortness of breath, loss of movement sensation in the legs. PHYSICAL EXAM: Nursing triage notes reviewed, Vital signs reviewed Constitutional: please see [facility] HENT: MMM Eyes: Pupils equal round and reactive to light, Extraocular muscles intact Neck: No stridor, no JVD, full neck ROM Lungs: Clear to auscultation, No wheezing or rales. No increased work of breathing, no conversational dyspnea, no accessory muscle use, no nasal flaring. No respiratory distress noted Heart: Regular rate and rhythm, No murmurs, No rubs and No gallops, 2+ distal pulses (radial, femoral, posterior tibial) in all extremities Abdomen: Soft, there is no tenderness, rigidity, rebound or guarding, no obvious peritoneal signs, no palpable pulsatile abdominal masses, no auscultated abdominal bruit. Negative Matute sign, TTP over right flank, liver : No CVAT Extremities: No edema Neuro: No focal neurological deficits, cranial nerves II through XII intact, 5/5 strength in all extremities. Intact sensation to light touch in all extremities, 2+ reflexes bilateral patella tendons. Normal gait. No ataxia. Intact sensation L1-S1 dermatomal distributions. Intact 5/5 strength in hip flexion (T12-L3). Knee extension (L2-L4). Ankle dorsiflexion (L4-L5). Ankle plantar flexion (S1). Great toe extension (L5). 2+ patellar and Achilles DTRs. Skin: No rash or lesions noted MEDICAL DECISION MAKING: Chief Complaint: Abdominal pain External records reviewed: Imaging reviewed: CT scan of the abdomen pelvis from 11/25/2023 shows metastatic disease in the liver, showed a normal gallbladder and extrahepatic biliary system Factors affecting care: Hypothyroidism, Metastatic colon cancer (adenocarcinoma) Social determinants of health: none History obtained from others: none Consults: none [facility] Narrative: Patient was hemodynamically stable, afebrile and nontoxic-appearing. Exam with right side abdominal tenderness, right CVA tenderness I considered the following differential diagnosis: Metastatic burden, nephrolithiasis, pyelonephritis, acute cholecystitis ALL IMAGES (IF OBTAINED) HAVE BEEN PERSONALLY REVIEWED AND INTERPRETED BY MYSELF. CBC without leukocytosis, severe anemia, no thrombocytopenia. LFTs with elevation liver enzymes consistent with metastatic disease, no signs of hepatobiliary obstruction Lipase is wnl indicating no pancreatic inflammation. Urinalysis shows no evidence of urinary inflammation suggestive of UTI CT scan shows metastatic burden, no evidence of hepatobiliary pathology, gallstones or other emergent intra-abdominal pathology The synthesis of the patient's history, physical exam, labs images suggest likely pain arising from increased metastatic burden. The patient and/or family, caregivers express understanding. The patient and/or family, caregivers agrees with the plan. Shared decision making: I will have a discussion with the patient and or visitors regarding risk/benefits of further testing or admission. They will be made aware of of the risk/benefits inherent in this decision they will be given the opportunity to voice understanding. Total critical care time today provided was at least 0 minutes. This excludes separately billable procedures. Critical care time (if documented) is secondary to the patient having high probability of clinically significant/life threatening deterioration in the patient's condition which required my urgent intervention. Impression: 1. Metastatic colon cancer 2. Right upper quadrant abdominal pain 3. Elevated liver enzymes Dispo: Discharge home This note was generated with Andre Ph[employer] dictation software. It may contain incorrect words, spelling, and punctuation that were not noted in review of the chart prior to signing. Lab Data Labs: Laboratory Results - last 24 hr 12/14/23 00:10 WBC 8.8 RBC 4.41 Hgb 12.6 Hct 38.5 MCV 87.3 MCH 28.6 MCHC 32.7 RDW Std Deviation 40.8 RDW Coeff of Alex 13.1 Plt Count 371 MPV 10.2 Immature Gran % (Auto) 1.100 H Neut % (Auto) 77.4 H Lymph % (Auto) 11.[address] [place] % (Auto) 7.8 Eos % (Auto) 1.4 Baso % (Auto) 0.6 Absolute Neuts (auto) 6.8 Absolute Lymphs (auto) 1.03 Nucleated RBC % 0 Sodium 137 Potassium 3.6 Chloride 104 Carbon Dioxide 26.0 Anion Gap 7 BUN 11 Creatinine 0.65 Estim Creat Clear Calc 112.03 Est GFR (MDRD) Af Amer 123 Est GFR (MDRD) Non-Af 101 BUN/Creatinine Ratio 17.0 Glucose 115 H Calcium 9.6 Total Bilirubin 0.60 Direct Bilirubin 0.16 AST 87 H ALT 69 H Alkaline Phosphatase 239 H Total Protein 7.8 Albumin 3.6 Globulin 4.2 Lipase 24 Urine Color Yellow Urine Clarity Clear Urine pH 6.5 Ur Specific [place] 1.020 Urine Protein 15 H Urine Glucose (UA) Normal Urine Ketones 5 H Urine Occult Blood 10 H Urine Nitrite Negative Urine Bilirubin Negative Urine Urobilinogen Normal Ur Leukocyte Esterase 25 H Urine RBC 0-5 SEEN Urine WBC 0-5 SEEN Ur Squamous Epith Cells 0-5 SEEN Urine Bacteria RARE Urine Mucus 0 SEEN Radiography Diagnostic Testing: Clinical Impression(s) from Imaging Studies Abdomen/Pelvis CT 12/14/23 23:58 IMPRESSION: 1. Hepatic metastases. 2. Inflammation involving the sigmoid colon. Inflammation involving the colonic portion of the ostomy within abdominal wall including the colonic wall thickening and pericolonic stranding. Electronically Signed: Waqas Alvarado MD at 1:50 EDT , Discharge Plan Triage Chief Complaint: Abd Pain ED Provider: Vignesh Partida Dx/Rx/DC Orders Clinical Impression: Metastasis to liver, Right-sided back pain Instructions: Cancer Overview Prescriptions: New oxycodone 5 mg capsule 5 mg PO Q6H PRN (Reason: pain) 5 Days Qty: 20 0RF ondansetron 4 mg tablet,disintegrating 4 mg PO Q8H PRN PRN (Reason: Nausea) Qty: 10 0RF No Action tramadol 50 mg tablet 50 mg PO PRN PRN (Reason: pain) citalopram 40 mg tablet 40 mg PO DAILY progesterone micronized 200 mg capsule 200 mg PO DAILY Rx Instructions: ON FIRST 12 DAYS OF MONTH estradiol 0.5 mg tablet 0.5 mg PO DAILY levothyroxine 112 mcg tablet 112 mcg PO DAILY buspirone 10 mg tablet 20 mg PO BID Patient Comments: PT STATES TYPICALLY ONLY REMEMBERS TO TAKE 2T 1XD loratadine [Allerclear] 10 mg tablet 10 mg PO DAILY turmeric 400 mg capsule 400 mg PO DAILY Patient Comments: STOP 3 DAYS PRIOR TO PROCEDURE Primary Care Provider: Blanca Adame NP Referrals: Blanca Adame NP, [employer] [Primary Care Provider] - Activity Restrictions/Additional Instructions: Thank you for trusting us with your care today! The cause of your pain is likely liver metastases. Please take Tylenol (2 pills, 650 mg), ibuprofen (2 pills, 400 mg) every 6 hours as needed for pain and fever control. Please take oxycodone as needed for breakthrough pain if the above regimen does not control your symptoms. Please return to the emergency department if your symptoms change or worsen. You develop vomiting, pain is intractable, do not have bowel movements for 7 days, do not urinate for 12 hours. Please follow with your primary care physician and/or oncologist for further outpatient evaluation and management. Disposition Disposition: Home, Self Care
[2023-12-14] MEDS: Morphine 4 MG/ML Syringe IV ×2 (00:12→02:37)
[2023-12-14] MEDS: Ondansetron 4 MG/2 ML Vial IV (00:12)
[2023-12-14] MEDS: 0.9% Normal Saline (1000mL) 1,000 ML 1000 ML IV (00:12)
[2023-12-14 00:24] LABS: Mucous, Urine 0 SEEN /hpf (<or=2+)
[2023-12-14 00:26] VITALS: BP 119/67; PULSE 78; RESP 18; TEMP 36.9; O2SAT 95
[2023-12-14 00:27] LABS: Color, Urine Yellow (Yellow); Glucose, Dipstick Normal (Normal); Ketone-Dipstick 5 mg/dl (Negative); Leukocyte Esterase-Dipstick 25 /ul (Negative); Nitrite-Dipstick Negative (Negative); Occult Blood-Urine 10 /ul (Negative); Protein-Dipstick 15 mg/dl (Negative); Urine Bilirubin Dipstick Negative (Negative); Urine Clarity Clear (Clear); Urine Urobilinogen Normal (Normal); Urine pH 6.5 (5.0 - 8.0)
[2023-12-14 00:30] LABS: Absolute Lymphocyte Count 1.03 X10^3/uL (0.83-4.51); Absolute Neutrophil Count 6.8 X10^3/uL (2.0-7.7); Basophil# 0.05 X10^3/uL; Basophil% 0.6 % (0-1); Eosinophil# 0.12 X10^3/uL; Eosinophils% 1.4 % (0-5); Hematocrit 38.5 % (37-47); Hemoglobin 12.6 g/dL (12.0-15.0); Lymphocyte # 1.03 X10^3/ul (0.83-4.51); Lymphocyte % 11.7 % (19-41); Mean Corp Hgb Conc 32.7 g/dL (32-36); Mean Corpuscular Hgb 28.6 pg (27.0-32.0); Mean Corpuscular Volume 87.3 fL (81-99); Mean Platelet Vol. 10.2 fl (6.2-12.0); Monocyte# 0.69 X10^3/uL; Monocyte% 7.8 % (0-10); NRBC Flagged by Analyzer 0 % (0-5); Neutrophil % 77.4 % (47-70); Platelet Count 371 K/mm3 (150-450); RBC Distribution Width CV 13.1 % (11.6-14.6); RBC Distribution Width SD 40.8 fl (35.1-43.9); Red Blood Count 4.41 M/mm3 (4.2-5.4); White Blood Count 8.8 K/mm3 (4.4-11.0)
[2023-12-14 00:41] LABS: AST(SGOT) 87 U/L (15-37); Alanine Aminotransfer ALT/SGPT 69 U/L (13-56); Albumin, Serum 3.6 g/dL (3.2-5.0); Alkaline Phosphatase 239 U/L (45-117); Anion Gap 7 (5-15); BUN 11 mg/dL (7-18); Bilirubin, Direct 0.16 mg/dL (0.00-0.30); Calcium,Total 9.6 mg/dL (8.5-10.1); Chloride 104 mmol/L (98-107); Creatinine, Serum 0.65 mg/dL (0.55-1.02); EST Glomerular Filtration Rate 101 mL/min (>60); Est Glom Filt Rate - Afr Amer 123 mL/min (>60); Estimated Creatinine Clearance 112.03 ml/min; Globulin 4.2 g/dL (2.2-4.2); Glucose 115 mg/dL (74-106); Lipase 24 U/L (13-75); Potassium 3.6 mmol/L (3.5-5.1); Protein, Total 7.8 g/dL (6.4-8.2); Sodium Level 137 mmol/L (136-145)
[2023-12-14 01:08] LABS: Bacteria RARE /hpf (None Seen); Red Blood Cells-Urine 0-5 SEEN /hpf (0-5); Squamous Epithelial Cells - UA 0-5 SEEN /hpf (5-10); White Blood Cells 0-5 SEEN /hpf (0-5)
[2023-12-14 01:25] VITALS: BP 121/72; PULSE 72; RESP 18; O2SAT 94
[2023-12-14 02:38] VITALS: BP 109/61; PULSE 74; RESP 18; TEMP 36.8; O2SAT 95
--- NOTE | 2023-12-14 23:58 | CT_ITS ---
EXAM: CT ABDOMEN AND PELVIS WITHOUT INTRAVENOUS CONTRAST CLINICAL INDICATION: right flank pain r/o nephrolithiasis TECHNIQUE: Helically acquired images were obtained of the abdomen and pelvis without intravenous contrast. CTDIvol = ( 8.59 ) mGy, DLP = ( 474.37 ) mGycm This CT exam was performed using one or more of the following dose reduction techniques: automated exposure control, adjustment of the mA and/or kV according to patient size, and/or use of iterative reconstruction technique. COMPARISON: No relevant prior studies available. FINDINGS: LOWER THORAX: Unremarkable. Lung bases are clear. No cardiomegaly. No significant pericardial effusion. ABDOMEN: LIVER: Multiple hepatic masses is concerning for metastasis, largest measuring 9.5 cm involving the right lobe of the liver posteriorly. GALLBLADDER AND BILE DUCTS: Unremarkable. No calcified gallstones. No gallbladder distention or wall edema. No intra- or extrahepatic biliary ductal dilation. PANCREAS: Unremarkable. No focal cystic mass. SPLEEN: Unremarkable. Normal size without focal cystic or solid mass. ADRENALS: Unremarkable. No nodules. KIDNEYS AND URETERS: Unremarkable. Normal renal size and position. No hydronephrosis. STOMACH AND BOWEL: Inflammation involving the sigmoid colon. Inflammation involving the colonic portion of the ostomy within abdominal wall including the colonic wall thickening and pericolonic stranding. No stomach or bowel distention. PELVIS: APPENDIX: No evidence of acute appendicitis. BLADDER: Unremarkable. REPRODUCTIVE: Unremarkable as visualized. No adnexal masses. ABDOMEN and PELVIS: INTRAPERITONEAL SPACE: Unremarkable. No free air free fluid. BONES/JOINTS: Moderate to severe degenerative disc disease at L5-S1. No suspicious lytic or blastic abnormality. SOFT TISSUES: Unremarkable. No discrete abdominal or pelvic wall hernia. VASCULATURE: Unremarkable. Abdominal aorta is non-dilated. LYMPH NODES: Unremarkable. No enlarged lymph nodes. CT/Abdomen/Pelvis without Cont IMPRESSION: 1. Hepatic metastases. 2. Inflammation involving the sigmoid colon. Inflammation involving the colonic portion of the ostomy within abdominal wall including the colonic wall thickening and pericolonic stranding. Electronically Signed: Waqas Alvarado MD at 1:50 EDT ,
== END 2023-12-14 02:56 | disposition home or self-care (01) ==
PROVIDERS: Emergency Provider Emergency Medicine; PCP Nurse Practitioner Primary Care; Visit Provider Emergency Medicine
DX: R10.11 Right upper quadrant pain (principal); C78.7 Secondary malignant neoplasm of liver and intrahepatic bile duct; C18.9 Malignant neoplasm of colon, unspecified; E03.9 Hypothyroidism, unspecified; R74.8 Abnormal levels of other serum enzymes; F41.8 Other specified anxiety disorders; Z79.899 Other long term (current) drug therapy; Z98.51 Tubal ligation status; Z90.49 Acquired absence of other specified parts of digestive tract
CPT/HCPCS: 74176; 80048; 80076; 81001; 83690; 85025; 96361; 96374; 96375; 96376; 99283; J7030; A4216; J2405

== ENCOUNTER 2023-12-17 08:02 | Day surgery (SDC) | payer OTHER, SELFPAY ==
[2023-12-13 10:39] LABS: Color, Urine Yellow (Yellow); Glucose, Dipstick Normal (Normal); Ketone-Dipstick Negative (Negative); Leukocyte Esterase-Dipstick 25 /ul (Negative); Nitrite-Dipstick Negative (Negative); Occult Blood-Urine 50 /ul (Negative); Protein-Dipstick Negative (Negative); Urine Bilirubin Dipstick Negative (Negative); Urine Clarity Clear (Clear); Urine Urobilinogen Normal (Normal)
[2023-12-17] VITALS (7 sets, daily range): BP systolic 94–128; BP diastolic 52–70; PULSE 76–93; RESP 16; TEMP 36.1–36.7; O2SAT 93–96; BMI 27.5
[2023-12-17] MEDS: Lactated Ringers 1,000 ML 15 ML IV (08:37)
--- NOTE | 2023-12-17 08:56 | PCM.HP.BLA ---
History and Physical Date of Admission: 12/17/23 Date of Service: 12/13/23 MR#: [id number] Acct: [id number] Name: CHRIS NIX Rep #: [id number] : 1970 Provider: Dr. Naina Dennis MD Age/Sex: 53/F Location: [facility] Status: Signed Intake Vital Signs 11/28/2414:03 12/12/2408:25 Height 5 ft 8 in 5 ft 8 in Weight: 184 lb BMI 27.9 BP 117/73 Blood Pressure Location Rt brachial Position Sitting Respiration 18 Intake Visit Reasons: PORT PLACEMENT Chief Complaint: port placement Hospital Education Coordinator Required: No Is patient in pain?: Yes (generalized) Pain scale (1-10): 3 Allergies No Known Allergies Allergy (Verified 12/13/23 09:26) Medications acetaminophen 500 mg capsule 500 mg PO DAILY 11/25/23 [History Confirmed 11/25/23] buspirone 10 mg tablet 20 mg PO BID 11/25/23 [History Confirmed 12/13/23] citalopram 40 mg tablet 40 mg PO DAILY 11/25/23 [History Confirmed 11/25/23] estradiol 0.5 mg tablet 0.5 mg PO DAILY 11/25/23 [History Confirmed 12/13/23] levothyroxine 112 mcg tablet 112 mcg PO DAILY 11/25/23 [History Confirmed 12/13/23] loratadine 10 mg tablet (Allerclear) 10 mg PO DAILY 11/25/23 [History Confirmed 12/13/23] progesterone micronized 200 mg capsule 200 mg PO DAILY 11/25/23 [History Confirmed 12/13/23] turmeric 400 mg capsule 400 mg PO DAILY 11/25/23 [History Confirmed 12/13/23] tramadol 50 mg tablet 50 mg PO PRN 12/13/23 [History Confirmed 12/13/23] PFSH Medical History Abdominal pain Anxiety and depression Carcinoma of colon Hypothyroidism Metastasis to liver Obesity Rectal bleed Surgical History H/O section History of bilateral tubal ligation Hx of appendectomy S/P laparoscopic colectomy Family History Mother COPD (chronic obstructive pulmonary disease) Lung cancer DiabetesFather Heart disease Hypertension Social History household members: family and children Smoking Status: Never smoker alcohol intake: never substance use type: does not use HPI HPI HPI: 53-year-old female presents for port placement due to metastatic colon cancer. Patient did recently undergo a sigmoid loop colostomy and planning to start chemo on 12/23/2023. ROS General General: Yes weight change, fatigue and colon cancer; No appetite, breast cancer or weakness HEENT HEENT: No difficulty swallowing, eye injury, eye surgery, swollen glands or hoarseness Endo Endocrine: Yes thyroid disease; No diabetes mellitus, thyroid cancer, Hair loss, heat intolerance or cold intolerance Skin Skin: No rash or changing moles Breast Breast: No left breast lump, right breast lump, nipple discharge, breast pain, abnormal mammogram, abnormal US or breast enlargement Musc Musculoskeletal: No back problems, arthritis, rheumatoid arthritis, gout or joint pain Cardio Cardiovascular: No murmur, pacemaker, heart disease, atrial fibrillation, high blood pressure, heart attack, heart stent, palpitations, shortness of breat with exertion or chest pain Psych Psychiatric: Yes depression and anxiety; No hearing voices Resp Respiratory: No shortness of breath, No sleep apnea, No cough, No COPD, No asthma, No emphysema and No wheezing Gastro Gastrointestinal: Yes abdominal pain, Yes nausea or vomiting, No diarrhea, No constipation, No blood in stool, No acid reflux, Yes hemorrhoids, No ulcers, No gallbladder problem and No black,tarry stools [place] Hematologic: No blood thinners, No blood disorders, No bleeding, No anemia and No blood clots Neuro Neurologic: No system reviewed and no additional complaints, except as documented, No as per HPI, No abnormal gait, No abnormal hearing, No abnormal movements, No abnormal speech, No behavioral changes, No burning sensations, No confusion, No convulsions, No disequilibrium, No dizziness, No localized weakness, No frequent falls, No headache(s), No lack of coordination, No loss of vision, No memory loss, No numbness, No other visual disturbances, No radicular pain, No restless legs, No sensory deficit, No syncope, No tingling, No tremor(s), No weakness and No other Exam Const General: cooperative, healthy appearing, comfortable and no acute distress [facility] Head: normocephalic and atraumatic Neck Neck: supple Resp Effort & Inspection: normal respiratory effort Cardio Rate: regular rate GI Inspection: non-distended Palpation: soft Other: Left lower quadrant loop colostomy in place with stool in bag Skin General: no rashes or lesions noted Neuro General: CN's II-XI intact bilaterally Extrem General: normal to inspection Psych Mental Status: mental status grossly normal Attitude: cooperative Assessment and Plan Assessment and Plan (1) Encounter for insertion of venous access port: Status: Acute (2) Carcinoma of colon: Status: Acute (3) Metastasis to liver: Status: Acute (4) Right-sided back pain: Status: Acute Comment: mid back Orders: Orders Urinalysis, Routine (Dipstick) Today M54.50 - Low back pain, unspecified Culture, Urine Today M54.50 - Low back pain, unspecified Plan Patient complaining of some right sided back pain and is not feeling well question if she could have a UTI denies any dysuria. Will check UA and culture. I have discussed above with the patient- Port-a-Cath placement. Right IJ possible left Patient has been counseled as to the risks/benefits of the procedure. I have explained the risks of the surgery, including but not limited to: infection, bleeding, injury to any blood vessels/nerves, injury to lungs (such as pneumothorax or hemothorax and need for chest tube), not having any access, nonfunctioning of port due to thrombosis, infection of port, etc. the patient understands and agrees to proceed. I have answered all the patient's questions to the patient?s satisfaction and the patient has no further questions. Naina Dennis M.D. Pager: [phone] [facility] [address] [place] [address], [facility], [address] [place] [id number] Office: [phone] Coding Level of Care Code Off vis,new,level 3 Diagnoses Encounter for insertion of venous access port Z45.2 Carcinoma of colon C18.9 Metastasis to liver C78.7 Right-sided back pain M54.9 12/13/23 1035 <Electronically signed by Naina Dennis MD> Date Naina Dennis MD
[2023-12-17] MEDS: Cefazolin 2 GM in 0.9% Normal Saline (100mL Bag) 100 ML IV (09:21)
[2023-12-17] MEDS: Bupivacaine Mpf 0.5% 30 ML VIAL (09:32)
[2023-12-17] MEDS: Lidocaine 1% /Epi 1:100 (20ml) 20 ML Vial (09:32)
--- NOTE | 2023-12-17 09:55 | RAD_ITS ---
STUDY: X-RAY CHEST REASON FOR EXAM: Female, 53 years old. Port -- PORTABLE PACU TECHNIQUE: Single AP portable view of the chest. COMPARISON: None. FINDINGS: A right-sided portacatheter has been placed with the tip at the junction of the superior vena cava and right atrium. Minimal atelectasis at the left lung base. There is no demonstrated pleural abnormality. Normal size heart. Normal mediastinum and bryson. Normal visualized pulmonary arteries. Normal visualized aortic arch and descending thoracic aorta. Normal visualized thoracic spine. Normal visualized ribs, clavicles, and shoulders. There is no demonstrated abnormality of the visualized soft tissue structures of the upper abdomen. RAD/Chest 1 View (Portable) IMPRESSION: The tip of the right Port-A-Cath is at the junction of the superior vena cava and right atrium. Mild degree of atelectasis at the left lung base. Electronically Signed: Oleg Rodriguez MD at 10:24 EDT ,
--- NOTE | 2023-12-17 09:55 | PCM.OPRPT ---
Report of Operation Date of Procedure: 12/17/23 Pre-Operative Diagnosis: Z45.2, metastatic colon cancer Post-Operative Diagnosis: Same Surgery/Procedure Performed:: 1. Placement of right IJ Port-A-Cath Use of ultrasound Use of fluoroscopy Surgeon: Naina Dennis Type of Anesthesia: Local MAC Anesthesiologist: Cristo Mendoza Special Medications: Ancef 2 g IV x 1 Estimated Blood Loss (mL): < 10 cc Description of Procedure: After informed consent was given, the patient was brought to the operating room and placed in the supine position. Appropriate time out protocol was followed. Patient was then given IV conscious sedation for anesthesia. The patient's right upper chest and neck were then prepped with a surgical skin preparation and sterile surgical drapes were placed. After proper landmarks were ascertained, the skin at the upper right chest area was then infiltrated with 1:1 mixture of 1% lidocaine with epinephrine and 0.5% marcaine. A needle trocar was then inserted into the right internal jugular vein with ultrasound guidance-multiple vessels were viewed with u/s and the right IJ was chosen-- and there was good aspiration of venous blood. A wire was then threaded into the needle trocar and this was visualized under fluoroscopy to ensure that the wire was in the superior vena cava. Once this was done, then the needle trocar was removed. A small skin asia was made with an 11 blade knife at the wire entrance site. The dilator with the introducer sheath attached was then placed over the wire into the right internal jugular vein via the Seldinger technique and this was visualized under fluoroscopy. The dilator and sheath were in proper position as visualized by fluoroscopy. A subcutaneous pocket was then created caudad to the catheter insertion site. A transverse skin incision was made after the skin and subcutaneous tissues were infiltrated with local anesthetic. Blunt dissection was then used to create a space large enough for placement of the subcutaneous port. The catheter was then tunneled into the subcutaneous pocket. The wire and dilator were then removed. The catheter was then threaded into the introducer sheath and was positioned with its tip at the junction of the superior vena cava and the right atrium as visualized under fluoroscopy. The excess catheter was transected. The catheter was then attached to the subcutaneous port using manufacturers guidelines. The catheter was flushed with a heparin saline mixture prior to placement. Hemostasis was carefully controlled with electrocautery. The port was sutured to the subcutaneous fascia using 2-0 Vicryl suture at two sites. The port was then placed in the subcutaneous pocket. The incision were reapproximated with interrupted subdermal 3-0 vicryl sutures. The skin was reapproximated with 3-0 nylon suture in a interrupted fashion. Steristrips were used for reinforcement of the skin closure at IJ insertion site and a sterile opsite dressings were applied. The patient tolerated the procedure well. Grafts/Implants Used: Bard PowerPort isp M.R.I. 6Fr Lot [id number] Complications none
--- NOTE | 2023-12-17 09:58 | DCINST_ITS ---
Discharge Instructions Procedure Port-A-Cath Diet Discharge Diet: Light diet - advance as tolerated Activity May shower in (days): 5 (Keep port site clean and dry x5 days. Neck incision okay to get wet after 1 day. Okay to lower shower and upper sponge bath. OR okay to taper off port site with a Ziploc bag to shower) Lifting Restrictions: No lifting > 15 pounds for 3 days with the arm on the side of the port Dressing / Incision Call your doctor if your incision/area has: Continuous Slow Oozing, Sudden Increased Bleeding, Increased Pain/ Swelling, Increased Redness, Foul Smelling Discharge and Swelling at the incision site Call your doctor if you observe: Fever of 101 or Higher Change Dressing in: 2 days (2-3 days- port site; ok to remove neck opsite in 1 day) Follow Up Care Please Follow Up With: Naina Dennis MD When: In 10 days for permanent suture removal?call office for appointment Test Results: Test results from this visit will be discussed in further detail at your follow- up appointment, if applicable. Discharge Plan Admission Attending Provider: Naina Dennis Primary Care Provider: Blanca Adame NP Discharge Orders/Prescriptions Prescriptions: Continued tramadol 50 mg tablet 50 mg PO PRN PRN (Reason: pain) citalopram 40 mg tablet 40 mg PO DAILY progesterone micronized 200 mg capsule 200 mg PO DAILY Rx Instructions: ON FIRST 12 DAYS OF MONTH estradiol 0.5 mg tablet 0.5 mg PO DAILY levothyroxine 112 mcg tablet 112 mcg PO DAILY buspirone 10 mg tablet 20 mg PO BID Patient Comments: PT STATES TYPICALLY ONLY REMEMBERS TO TAKE 2T 1XD loratadine [Allerclear] 10 mg tablet 10 mg PO DAILY turmeric 400 mg capsule 400 mg PO DAILY Patient Comments: STOP 3 DAYS PRIOR TO PROCEDURE oxycodone 5 mg capsule 5 mg PO Q6H PRN (Reason: pain) 5 Days Qty: 20 0RF ondansetron 4 mg tablet,disintegrating 4 mg PO Q8H PRN PRN (Reason: Nausea) Qty: 10 0RF Referrals / Follow Up: Blanca Adame NP, SUPERINTENDENT NONSELLING-C [Primary Care Provider] - Disposition Disposition (needs filled in before D/C Order can be placed): Home, Self Care
== END 2023-12-17 11:13 | disposition home or self-care (01) ==
LOC: SDC 08:06 → AC 08:06
PROVIDERS: PCP Nurse Practitioner Primary Care; Referring Provider Surgery; Visit Provider Surgery
PROC: (CPT 36561; principal; 2023-12-17 09:30)
DX: Z45.2 Encounter for adjustment and management of vascular access device (principal); C78.7 Secondary malignant neoplasm of liver and intrahepatic bile duct; C18.9 Malignant neoplasm of colon, unspecified; Z80.1 Family history of malignant neoplasm of trachea, bronchus and lung; E03.9 Hypothyroidism, unspecified; F41.9 Anxiety disorder, unspecified; F32.A Depression, unspecified; Z98.51 Tubal ligation status; Z90.49 Acquired absence of other specified parts of digestive tract; M54.50 Low back pain, unspecified
CPT/HCPCS: 36561; 00532; 71045; 77001; 81002; 87086; J7120

== ENCOUNTER 2024-01-13 14:32 | Emergency (ER) | payer OTHER, SELFPAY ==
[2024-01-13 14:33] VITALS: BP 119/62; PULSE 99; RESP 18; TEMP 37; O2SAT 98; BMI 27.8
--- NOTE | 2024-01-13 14:53 | US_ITS ---
STUDY: ABDOMINAL ULTRASOUND - RIGHT UPPER QUADRANT REASON FOR VISIT: Female, 53 years old PAIN. Colon cancer metastatic to the liver. TECHNIQUE: Ultrasound evaluation of the right upper quadrant was performed with real-time and static redmond-scale imaging. TECHNICAL QUALITY: Adequate. COMPARISON: CT scan 12/14/2023. FINDINGS: Liver: The liver measures 19.1 cm. There is a heterogeneous echogenicity of the liver. The bile ducts are within normal limits. There is hepatic color flow. The direction of portal flow is hepatopetal. There are numerous liver masses consistent with metastatic disease. Largest is 9.9 cm. Gallbladder: Moderately distended gallbladder. The gallbladder wall measures 2.3 mm. There is a positive sonographic Matute''s sign. There is no pericholecystic fluid. There is a solitary echogenic gallstone within the gallbladder. Common Bile Duct (C.B.D.): The common bile duct measures 6 mm. Pancreas: Suboptimally visualized. Right Kidney: Normal size of the right kidney. The right kidney measures 10.4 x 5.2 x 4.5 cm. Normal renal cortex. The right cortex measures 1.1 cm. There is no demonstrated renal mass or cyst. There is no right hydronephrosis. US/Gallbladder IMPRESSION: Extensive metastatic disease to the liver also present on prior exam. Moderate distention of the gallbladder is small single stones and positive Matute''s sign. Electronically Signed: Nimesh Sainz MD at 17:03 EDT ,
--- NOTE | 2024-01-13 14:57 | EDS_ITS ---
<Statement entered by Kirstie Paulson MD - 01/14/24 00:02> I have personally performed a face to face assessment of the patient and have reviewed the AMBROSIO Note. Patient present secondary right upper quadrant abdominal pain. She has a history of colon cancer with metastatic disease to her liver. She is currently undergoing chemotherapy under the care of Dr. Evans. Patient states that after eating today she developed right upper quadrant pain that is different than her typical pain. It does radiate to her back. Patient sitting upright in bed no acute distress. Head and neck examination unremarkable. Heart is regular rate and rhythm. Lung sounds are clear. Abdomen is soft with tenderness in the right upper quadrant. Colostomy in place in the left lower quadrant. CBC was a white count of 3.8 with a hemoglobin 11.8. Chemistry studies unremarkable. LFTs significant for an alk phos of 174, AST 58, ALT of 76. Lipase is normal. Right upper quadrant ultrasound reveals metastatic disease to the liver. There is a moderately distended gallbladder with a single stone. Positive sonographic Matute sign noted. Given her findings we did discuss case with Dr. Petersen who reviewed her imaging. He states the stone does not appear to be blocking the neck or causing problems at this time. He feels that her right upper quadrant pain is more likely secondary to metastatic disease and not acute cholecystitis. Patient given instructions to follow bland diet and return for any worsening symptoms. She is comfortable with the plan. HPI HPI - GI History of Present Illness Chief Complaint: Abd Pain Narrative Narrative: Patient presenting today due to right upper quadrant abdominal pain that started after eating lunch this afternoon. She reports that she had a grilled chicken salad for lunch and removed sharp RUQ abdominal pain that radiates to her back. She does have a history of metastatic colon cancer to the liver, she does occasionally have pain in her right upper quadrant but reports that this is different. She does still have her gallbladder. She denies fevers, chills, nausea, vomiting, and diarrhea. She is having normal output through her ostomy bag. She follows with Dr. Evans and recently started chemotherapy with her last session being on Saturday. [facility] Medical History Wears hearing aid Wears glasses Depression Anxiety Thyroid disease Non-smoker Shortness of breath on exertion Obesity Hypothyroidism Anxiety and depression Abdominal pain Carcinoma of colon Rectal bleed Metastasis to liver Home Medications ?Medication ?Instructions ?Recorded ?Last Taken ?Type buspirone 10 mg tablet 20 mg PO BID 11/25/23 12/16/23 History citalopram 40 mg tablet 40 mg PO DAILY 11/25/23 12/16/23 History estradiol 0.5 mg tablet 0.5 mg PO DAILY 11/25/23 12/16/23 History levothyroxine 112 mcg tablet 112 mcg PO DAILY 11/25/23 12/16/23 History loratadine 10 mg tablet 10 mg PO DAILY 11/25/23 12/16/23 History (Allerclear) progesterone micronized 200 mg 200 mg PO DAILY 11/25/23 12/16/23 History capsule turmeric 400 mg capsule 400 mg PO DAILY 11/25/23 12/13/23 History tramadol 50 mg tablet 50 mg PO PRN PRN pain 12/13/23 12/12/23 History ondansetron 4 mg disintegrating 4 mg PO Q8H PRN PRN Nausea #10 tabs 12/14/23 Unknown Rx tablet oxycodone 5 mg capsule 5 mg PO Q6H PRN pain 5 days #20 12/14/23 Unknown Rx caps Allergy/AdvReac Type Severity Reaction Status Date / Time No Known Allergies Allergy Verified 01/13/24 14:33 Family History Mother COPD (chronic obstructive pulmonary disease) Lung cancer Diabetes Father Heart disease Hypertension Surgical History History of colostomy Hx of colonoscopy S/P laparoscopic colectomy History of bilateral tubal ligation H/O section Hx of appendectomy Social History household members: family and children Smoking Status: Never smoker alcohol intake: never substance use type: does not use ROS ROS ED Constitutional Constitutional ED: Denies chills or fever(s) Cardiovascular Cardiovascular: Denies chest pain Respiratory/Chest Respiratory/Chest: Denies cough or dyspnea Gastrointestinal Gastrointestinal: Reports abdominal pain; Denies constipation, diarrhea, nausea or vomiting Genitourinary Genitourinary ED: Denies dysuria, hematuria or urinary urgency Musculoskeletal Musculoskeletal: Denies arthralgias or myalgias Integumentary Denies rash Neurologic Neurologic: Denies weakness EXAM Physical Exam Const Vital Signs: 01/13/24 14:33 01/13/24 17:09 01/13/24 18:51 Temperature 98.6 F Temperature Source Temporal Pulse Rate 99 71 82 Respiratory Rate 18 18 16 Blood Pressure 119/62 107/68 128/78 H Blood Pressure Mean 81 81 94 Pulse Ox 98 98 98 Oxygen Delivery Method Room Air Positive well nourished, well developed and no apparent distress General Appearance ED: well developed HEENT Reports normocephalic and head/scalp atraumatic Mouth ED: Yes moist mucous membranes normal Eyes PERRL and EOMs intact bilaterally Neck full ROM and supple Chest Wall inspection of chest normal Resp normal respiratory effort and clear to auscultation bilaterally Cardio regular rate and regular rhythm GI soft to palpation, non-distended and no masses GI Narrative: Right upper quadrant tenderness to palpation, no rigidity or guarding Back/Spine normal ROM and normal to inspection Extremity normal to inspection and full ROM Neuro oriented x3, CN's II-XII intact bilaterally, moves all extremities, no focal motor deficits and no sensory deficits noted Sensorium / Orientation: awake and alert Psych mental status grossly normal and thought process normal Skin no rashes or lesions noted and no wounds MDM MDM MDM Narrative Medical decision making narrative: Patient presenting with right upper quadrant abdominal pain that started this afternoon after eating lunch. She does have a history of metastatic colon cancer to the liver. She does still have her gallbladder. Her pain started after eating. She is well-appearing and in no acute distress, her vitals are unremarkable. She is tender to her RUQ. Gallbladder ultrasound will be obtained as well as labs to rule out leukocytosis, anemia, electrode abnormality, hepatobiliary etiology, and CHAPO. She was given IV fluids, Zofran, and morphine. Gallbladder ultrasound shows extensive metastatic disease to the liver, moderately distended gallbladder with a single stone, positive sonographic Matute sign. I did consult Dr. Petersen with general surgery, this stone does not appear to be obstructive. He does not feel that there is any surgical intervention indicated. He suspects that her pain is likely due to the liver mets. She was given additional Toradol for pain control. On reexamination she does report improvement of her pain. She does have pain medication at home that she can take as needed. She follows up with oncology next week. She will be discharged home in stable condition. Lab Data Attestation: I reviewed the patient's lab results. Lab results narrative: WBC 3.8, hemoglobin 11.8, AST 58, ALT 76, alkaline phosphatase 174 Labs: Laboratory Results - last 24 hr 01/13/24 15:25 WBC 3.8 L RBC 4.29 Hgb 11.8 L Hct 37.6 MCV 87.6 MCH 27.5 MCHC 31.4 L RDW Std Deviation 43.4 RDW Coeff of Alex 13.7 Plt Count 332 MPV 10.1 Immature Gran % (Auto) 0.300 Neut % (Auto) 40.8 L Lymph % (Auto) 47.7 H Dickson % (Auto) 6.4 Eos % (Auto) 3.2 Baso % (Auto) 1.6 H Absolute Neuts (auto) 1.5 L Absolute Lymphs (auto) 1.80 Nucleated RBC % 0 Sodium 136 Potassium 3.8 Chloride 106 Carbon Dioxide 25.0 Anion Gap 5 BUN 16 Creatinine 0.71 Estim Creat Clear Calc 102.33 Est GFR (MDRD) Af Amer 110 Est GFR (MDRD) Non-Af 91 BUN/Creatinine Ratio 22.5 H Glucose 105 Calcium 8.7 Total Bilirubin 0.40 AST 58 H ALT 76 H Alkaline Phosphatase 174 H Total Protein 7.1 Albumin 3.5 Globulin 3.6 Albumin/Globulin Ratio 1.0 Lipase 74 Radiography Diagnostic Testing: Clinical Impression(s) from Imaging Studies Gallbladder Ultrasound 01/13/24 14:53 IMPRESSION: Extensive metastatic disease to the liver also present on prior exam. Moderate distention of the gallbladder is small single stones and positive Matute''s sign. Electronically Signed: Nimesh Sainz MD at 17:03 EDT , Discharge Plan Triage Chief Complaint: Abd Pain ED Midlevel Provider: Cathryn Rutledge ED Provider: Kirstie Paulson Dx/Rx/DC Orders Clinical Impression: Abdominal pain, Metastasis to liver, Carcinoma of colon Instructions: Abdominal Pain Prescriptions: No Action tramadol 50 mg tablet 50 mg PO PRN PRN (Reason: pain) citalopram 40 mg tablet 40 mg PO DAILY progesterone micronized 200 mg capsule 200 mg PO DAILY Rx Instructions: ON FIRST 12 DAYS OF MONTH estradiol 0.5 mg tablet 0.5 mg PO DAILY levothyroxine 112 mcg tablet 112 mcg PO DAILY buspirone 10 mg tablet 20 mg PO BID Patient Comments: PT STATES TYPICALLY ONLY REMEMBERS TO TAKE 2T 1XD loratadine [Allerclear] 10 mg tablet 10 mg PO DAILY turmeric 400 mg capsule 400 mg PO DAILY Patient Comments: STOP 3 DAYS PRIOR TO PROCEDURE oxycodone 5 mg capsule 5 mg PO Q6H PRN (Reason: pain) 5 Days Qty: 20 0RF ondansetron 4 mg tablet,disintegrating 4 mg PO Q8H PRN PRN (Reason: Nausea) Qty: 10 0RF Primary Care Provider: Blanca Adame NP Referrals: Blanca Adame NP, HYDROGEN TREATER-C [Primary Care Provider] - 1 Week Activity Restrictions/Additional Instructions: Follow-up with oncology, return for any worsening of your symptoms. Print Language: [place] Citizen Disposition Disposition: Home, Self Care Discharge Date/Time: 01/13/24 18:52
[2024-01-13] MEDS: 0.9% Normal Saline (1000mL) 1,000 ML 999 ML IV (15:24)
[2024-01-13] MEDS: Ondansetron 4 MG/2 ML Vial IV (15:33)
[2024-01-13] MEDS: Morphine 4 MG/ML Syringe IV (15:34)
[2024-01-13 15:41] LABS: Absolute Neutrophil Count 1.5 X10^3/uL (2.0-7.7); Basophil# 0.06 X10^3/uL; Basophil% 1.6 % (0-1); Eosinophil# 0.12 X10^3/uL; Eosinophils% 3.2 % (0-5); Hematocrit 37.6 % (37-47); Hemoglobin 11.8 g/dL (12.0-15.0); Lymphocyte % 47.7 % (19-41); Mean Corp Hgb Conc 31.4 g/dL (32-36); Mean Corpuscular Hgb 27.5 pg (27.0-32.0); Mean Corpuscular Volume 87.6 fL (81-99); Mean Platelet Vol. 10.1 fl (6.2-12.0); Monocyte# 0.24 X10^3/uL; Monocyte% 6.4 % (0-10); NRBC Flagged by Analyzer 0 % (0-5); Neutrophil # 1.54 X10^3/uL (2.7-7.7); Neutrophil % 40.8 % (47-70); Platelet Count 332 K/mm3 (150-450); RBC Distribution Width CV 13.7 % (11.6-14.6); RBC Distribution Width SD 43.4 fl (35.1-43.9); Red Blood Count 4.29 M/mm3 (4.2-5.4); White Blood Count 3.8 K/mm3 (4.4-11.0)
[2024-01-13 16:00] LABS: AST(SGOT) 58 U/L (15-37); Alanine Aminotransfer ALT/SGPT 76 U/L (13-56); Albumin, Serum 3.5 g/dL (3.2-5.0); Alkaline Phosphatase 174 U/L (45-117); Anion Gap 5 (5-15); BUN 16 mg/dL (7-18); BUN/Creat Ratio 22.5 RATIO (10-20); Calcium,Total 8.7 mg/dL (8.5-10.1); Chloride 106 mmol/L (98-107); Creatinine, Serum 0.71 mg/dL (0.55-1.02); EST Glomerular Filtration Rate 91 mL/min (>60); Est Glom Filt Rate - Afr Amer 110 mL/min (>60); Estimated Creatinine Clearance 102.33 ml/min; Globulin 3.6 g/dL (2.2-4.2); Glucose 105 mg/dL (74-106); Lipase 74 U/L (13-75); Potassium 3.8 mmol/L (3.5-5.1); Protein, Total 7.1 g/dL (6.4-8.2); Sodium Level 136 mmol/L (136-145)
[2024-01-13 17:09] VITALS: BP 107/68; PULSE 71; RESP 18; O2SAT 98
[2024-01-13] MEDS: Ketorolac 15 MG/ML Vial IV (18:00)
[2024-01-13 18:51] VITALS: BP 128/78; PULSE 82; RESP 16; O2SAT 98
== END 2024-01-13 18:52 | disposition home or self-care (01) ==
PROVIDERS: Physician Assistant; Emergency Provider Emergency Medicine; PCP Nurse Practitioner Primary Care; Visit Provider Emergency Medicine
DX: R10.9 Unspecified abdominal pain (principal); C78.7 Secondary malignant neoplasm of liver and intrahepatic bile duct; C18.9 Malignant neoplasm of colon, unspecified; K82.8 Other specified diseases of gallbladder; Z80.1 Family history of malignant neoplasm of trachea, bronchus and lung; K80.20 Calculus of gallbladder without cholecystitis without obstruction
CPT/HCPCS: 36591; 76705; 80053; 83690; 85025; 96361; 96374; 96375; 99284; J7030; A4216; J2405

== ENCOUNTER 2024-07-29 19:34 | Inpatient (IN) | payer MEDICAID, SELFPAY ==
[2024-07-29] VITALS (16 sets, daily range): BP systolic 123–144; BP diastolic 73–89; PULSE 118–143; RESP 13–30; TEMP 37.1–38.9; O2SAT 96–99; BMI 30.9
--- NOTE | 2024-07-29 20:19 | RAD_ITS ---
INDICATION: Neutropenic Fever EXAMINATION/TECHNIQUE: X-RAY - XR Chest 2 Views COMPARISON: December 17, 2023 FINDINGS: LINES/DEVICES: Stable right venous port. LUNGS: No consolidation, edema or effusion. No pneumothorax. MEDIASTINUM AND CARDIOVASCULAR STRUCTURES: Cardiac silhouette not enlarged. Central airways and mediastinal contour are unremarkable. BONES AND SOFT TISSUES: Unremarkable. RAD/Chest PA and Lateral IMPRESSION: No radiographic evidence of acute cardiopulmonary disease. Electronically Signed: Hitesh Balbuena DO at 20:30 EST ,
[2024-07-29 20:29] LABS: Absolute Lymphocyte Count 0.69 X10^3/uL (0.83-4.51); Basophil# 0.12 X10^3/uL; Basophil% 0.8 % (0-1); Eosinophils% 0.6 % (0-5); Hematocrit 37.8 % (37-47); Hemoglobin 12.3 g/dL (12.0-15.0); Lymphocyte # 0.69 X10^3/ul (0.83-4.51); Lymphocyte % 4.3 % (19-41); Mean Corp Hgb Conc 32.5 g/dL (32-36); Mean Corpuscular Hgb 29.4 pg (27.0-32.0); Mean Corpuscular Volume 90.2 fL (81-99); Mean Platelet Vol. 9.8 fl (6.2-12.0); Monocyte# 0.69 X10^3/uL; Monocyte% 4.3 % (0-10); NRBC Flagged by Analyzer 0 % (0-5); Neutrophil # 13.96 X10^3/uL (2.7-7.7); Neutrophil % 87.9 % (47-70); Platelet Count 356 K/mm3 (150-450); RBC Distribution Width CV 17.9 % (11.6-14.6); RBC Distribution Width SD 56.5 fl (35.1-43.9); Red Blood Count 4.19 M/mm3 (4.2-5.4); White Blood Count 15.9 K/mm3 (4.4-11.0)
--- NOTE | 2024-07-29 20:30 | EDS_ITS ---
HPI History of Present Illness Chief Complaint: General Illness Informant: patient Onset/Context/Timing Onset: Today Context: Gradual Onset Timing: Continuous Quality: Fever Location: Generalized Worsened by: Nothing Relieved by: Nothing Narrative Narrative: Patient presents with fever that began today. Patient states she checked temperature at home and it was 100.4. Patient states that she waited a few hours and then rechecked it. Patient states it was up to 100.8 at that time. Patient states she has had some rhinorrhea. Patient admits to some shortness of breath. Patient denies any cough. Patient mitts to general myalgias. Patient also admits to a headache. Patient states that nothing seems to help with her fever. Patient states nothing makes it worse. Patient is on chemotherapy for colon cancer. [facility] Medical History Wears hearing aid Wears glasses Depression Anxiety Thyroid disease Non-smoker Shortness of breath on exertion Obesity Hypothyroidism Anxiety and depression Abdominal pain Carcinoma of colon Rectal bleed Metastasis to liver Home Medications ?Medication ?Instructions ?Recorded ?Last Taken ?Type citalopram 40 mg tablet 40 mg PO DAILY 11/25/23 12/16/23 History estradiol 0.5 mg tablet 0.5 mg PO DAILY 11/25/23 12/16/23 History levothyroxine 112 mcg tablet 112 mcg PO DAILY 11/25/23 12/16/23 History loratadine 10 mg tablet 10 mg PO DAILY 11/25/23 12/16/23 History (Allerclear) progesterone micronized 200 mg 200 mg PO DAILY 11/25/23 12/16/23 History capsule tramadol 50 mg tablet 50 mg PO PRN PRN pain 12/13/23 12/12/23 History ondansetron 4 mg disintegrating 4 mg PO Q8H PRN PRN Nausea #10 tabs 12/14/23 Unknown Rx tablet oxycodone 5 mg capsule 5 mg PO Q6H PRN pain 5 days #20 12/14/23 Unknown Rx caps fluoxetine 40 mg capsule 40 mg PO DAILY 07/29/24 Unknown History lorazepam 0.5 mg tablet 0.5 mg PO BID PRN PRN anxiety 07/29/24 Unknown History olanzapine 5 mg tablet 5 mg PO QHS 07/29/24 Unknown History ondansetron HCl 8 mg tablet 8 mg PO Q8H PRN PRN nausea/vomiting 07/29/24 Unknown History oxycodone 5 mg tablet 5 mg PO Q6H PRN PRN pain 07/29/24 Unknown History pantoprazole 40 mg tablet,delayed 40 mg PO BID 07/29/24 Unknown History release prochlorperazine maleate 5 mg 10 mg PO Q6H PRN PRN 07/29/24 Unknown History tablet nausea/vomiting sennosides 8.6 mg tablet (Karlie-augustine) 8.6 mg PO Q12H PRN PRN constipation 07/29/24 Unknown History Allergy/AdvReac Type Severity Reaction Status Date / Time No Known Allergies Allergy Verified 07/29/24 19:36 Family History Mother COPD (chronic obstructive pulmonary disease) Lung cancer Diabetes Father Heart disease Hypertension Surgical History History of colostomy Hx of colonoscopy S/P laparoscopic colectomy History of bilateral tubal ligation H/O section Hx of appendectomy Social History household members: family and children Smoking Status: Never smoker alcohol intake: never substance use type: does not use ROS ROS ED Constitutional Constitutional ED: Reports fever(s); Denies chills Eyes Eyes: Denies blurry vision or change in vision ENT ENT ED: Reports rhinorrhea; Denies sore throat Cardiovascular Cardiovascular: Denies chest pain or palpitations Respiratory/Chest Respiratory/Chest: Reports dyspnea; Denies cough Gastrointestinal Gastrointestinal: Denies nausea or vomiting Genitourinary Genitourinary ED: Denies dysuria or hematuria Musculoskeletal Musculoskeletal: Reports arthralgias and myalgias Integumentary Denies abscess or rash Neurologic Neurologic: Reports headache(s); Denies weakness Allergic/Immunologic Allergic/Immunologic ED: Denies mouth swelling or urticaria EXAM Physical Exam Const Vital Signs: 07/29/24 19:36 07/29/24 20:05 07/29/24 20:08 Temperature 98.8 F Temperature Source Oral Pulse Rate 124 H Respiratory Rate 20 H Respiratory Effort Respiratory Pattern Blood Pressure 139/88 H 128/86 H Blood Pressure Mean 105 100 Pulse Ox 97 Oxygen Delivery Method Room Air Room Air 07/29/24 20:09 07/29/24 20:17 07/29/24 20:18 Temperature 102.0 F H Temperature Source Oral Pulse Rate 118 H 125 H Respiratory Rate 14 16 Respiratory Effort Short of Breath Respiratory Pattern Tachypnea Blood Pressure 128/86 H Blood Pressure Mean 100 Pulse Ox 98 96 Oxygen Delivery Method Room Air 07/29/24 20:30 07/29/24 20:45 07/29/24 21:00 Temperature 100.9 F H Temperature Source Oral Pulse Rate 123 H 127 H 128 H Respiratory Rate 18 30 H 17 Respiratory Effort Respiratory Pattern Blood Pressure 129/89 H 123/73 H Blood Pressure Mean 102 89 Pulse Ox 98 96 97 Oxygen Delivery Method Room Air 07/29/24 21:00 07/29/24 21:15 07/29/24 21:30 Temperature Temperature Source Pulse Rate 126 H 125 H Respiratory Rate 20 H 16 Respiratory Effort Respiratory Pattern Blood Pressure 123/73 H 134/82 H Blood Pressure Mean 88 98 Pulse Ox 98 97 Oxygen Delivery Method Room Air 07/29/24 21:45 07/29/24 22:00 07/29/24 22:00 Temperature 101 F H Temperature Source Oral Pulse Rate 143 H 131 H 135 H Respiratory Rate 17 18 15 Respiratory Effort Respiratory Pattern Blood Pressure 144/86 H 144/86 H Blood Pressure Mean 105 100 Pulse Ox 97 99 97 Oxygen Delivery Method Room Air 07/29/24 22:15 07/29/24 22:30 07/29/24 22:45 Temperature Temperature Source Pulse Rate 124 H 118 H 122 H Respiratory Rate 18 20 H 13 Respiratory Effort Respiratory Pattern Blood Pressure 131/81 H Blood Pressure Mean 91 Pulse Ox 98 97 Oxygen Delivery Method Room Air 07/29/24 23:00 07/29/24 23:29 Temperature 100.9 F H Temperature Source Pulse Rate 121 H 133 H Respiratory Rate 19 H 19 H Respiratory Effort Respiratory Pattern Blood Pressure 131/79 H 131/79 H Blood Pressure Mean 94 96 Pulse Ox 98 97 Oxygen Delivery Method Room Air Positive well nourished and well developed General Appearance ED: well developed and NAD HEENT Reports moist mucous membranes Neck supple and no JVD Resp normal respiratory effort Auscultation: diminished lung sounds diffuse Cardio regular rhythm Rate: tachycardic GI non-distended Palpation: soft and tender LLQ (Around colostomy site); Negative for guarding or rebound tenderness present Neuro oriented x3, CN's II-XII intact bilaterally and no sensory deficits noted Sensorium / Orientation: alert Motor Exam: strength 5/5 throughout Psych mental status grossly normal Sepsis Attestation Sepsis Alert: Yes Sepsis Attestation: Agree w/Sepsis Possible Source of Sepsis: Unknown Sepsis Organ Dysfunction Criteria Present: Lactic Acid > 2 mmol/L and Serum CO2 < 20 mmol/L (on BMP) Fluid Resuscitation Fluid resuscitation indicated?: Yes Fluid Resuscitation ordered: 30 ml/kg fluid bolus ordered MDM MDM MDM Narrative Medical decision making narrative: Differential diagnose includes sepsis, urinary tract infection, pneumonia, influenza, COVID, RSV, other viral illness, gastroenteritis. CBC will be obtained to assess for leukocytosis and anemia. Comprehensive metabolic profile will be obtained to assess for hepatic function, renal function, and electrolyte abnormality. Serum lactate will be obtained to assess for sepsis. Urinalysis will be obtained to assess for urinary tract infection and hematuria. PT with INR PTT will be obtained to assess for coagulopathy. Blood cultures will be obtained to assess for sepsis. Urine culture will be obtained to assess for urinary tract infection. COVID-19, influenza, RSV PCR will be obtained to assess for viral illness. Chest x-ray will be obtained to assess for pneumonia. History & Record Review Additional record(s) reviewed:: Prior labs Lab Data Attestation: I reviewed the patient's lab results. Lab results narrative: CBC was reviewed. There is a leukocytosis of 15.9. There is a neutrophil shift. The remainder is within normal limits. Comprehensive metabolic profile was reviewed. CO2 was slightly low at 19.0. Chloride was slightly elevated at 110. ALT was slightly elevated at 66 and alkaline phosphatase was 281. The remainder is within normal limits. PT with INR and PTT were reviewed and were within normal limits. Serum lactate was reviewed and was slightly elevated at 2.1. Urinalysis was reviewed. Leukocyte esterase was 25. There are 5-10 white blood cells and 5-10 epithelial cells. There is 1+ bacteria. COVID-19 PCR was reviewed and was negative. Influenza PCR was reviewed and was negative for influenza A and influenza B. RSV PCR was reviewed and was negative. Labs: Laboratory Results - last 24 hr 07/29/24 07/29/24 20:13 22:03 WBC 15.9 H RBC 4.19 L Hgb 12.3 Hct 37.8 MCV 90.2 MCH 29.4 MCHC 32.5 RDW Std Deviation 56.5 H RDW Coeff of Alex 17.9 H Plt Count 356 MPV 9.8 Immature Gran % (Auto) 2.100 H Neut % (Auto) 87.9 H Lymph % (Auto) 4.3 L [place] % (Auto) 4.3 Eos % (Auto) 0.6 Baso % (Auto) 0.8 Absolute Neuts (auto) 14.0 H Absolute Lymphs (auto) 0.69 L Nucleated RBC % 0 PT 13.1 INR 1.0 APTT 27.3 Sodium 136 Potassium 3.7 Chloride 110 H Carbon Dioxide 19.0 L Anion Gap 8 BUN 11 Creatinine 0.77 Estim Creat Clear Calc 99.23 Est GFR (MDRD) Af Amer 100 Est GFR (MDRD) Non-Af 83 BUN/Creatinine Ratio 14.3 Glucose 101 Lactic Acid 2.1 H* Calcium 8.4 L Total Bilirubin 0.30 AST 31 ALT 66 H Alkaline Phosphatase 281 H Total Protein 6.9 Albumin 3.5 Globulin 3.4 Albumin/Globulin Ratio 1.0 Urine Color Yellow Urine Clarity Sl. Cloudy Urine pH 5.0 Ur Specific [place] 1.015 Urine Protein 15 H Urine Glucose (UA) Normal Urine Ketones Negative Urine Occult Blood 10 H Urine Nitrite Negative Urine Bilirubin Negative Urine Urobilinogen Normal Ur Leukocyte Esterase 25 H Urine RBC 0-5 SEEN Urine WBC 5-10 SEEN Ur Squamous Epith Cells 5-10 SEEN Urine Bacteria 1+ Urine Mucus 3+ Radiography Chest X-Ray - ED: 2 View, Read by ED Physician, Read by Radiologist and No Acute Disease Diagnostic Testing: Clinical Impression(s) from Imaging Studies Chest X-Ray 07/29/24 20:19 IMPRESSION: No radiographic evidence of acute cardiopulmonary disease. Electronically Signed: Hitesh Balbuena DO at 20:30 EST Reading Location ID and State: [facility] / [place] Tel [phone], Service support , PA and lateral chest x-ray was obtained. There are 2 views. On my independent interpretation, lung hou are clear. There is normal cardiac silhouette. Bony thorax is normal. There is no acute process noted. Radiologist also interpreted the x-ray and agrees. Management Discussion w/another healthcare provider: Hospitalist and Supervisor [employer] Treatment and Re-Evaluation :: Patient was given IV fluids, Tylenol, and Zofran. Blood cultures and urine cultures are pending. Case was discussed with Dr. Toro. He recommended a respiratory panel. He also recommended admission to the hospital overnight on IV antibiotics for sepsis of unknown etiology coverage. These were ordered. Case was discussed with the hospitalist. He will admit the patient to his service. Patient understood and was agreeable with the plan. All questions were answered. Discharge Plan Dx/Rx/DC Orders Clinical Impression: Acute febrile illness, Metastasis to liver, Carcinoma of colon, SIRS (systemic inflammatory response syndrome), Lactic acidosis Disposition Disposition: Acute Care Hospital [facility] Discharge Date/Time: 07/30/24 00:37
[2024-07-29 20:38] LABS: Prothrombin Time (Protime)PT. 13.1 SECONDS (11.7-14.9)
[2024-07-29 20:39] LABS: Partial Thromboplast Time 27.3 Seconds (24.1-36.2)
[2024-07-29 20:48] LABS: AST(SGOT) 31 U/L (15-37); Alanine Aminotransfer ALT/SGPT 66 U/L (13-56); Albumin, Serum 3.5 g/dL (3.2-5.0); Alkaline Phosphatase 281 U/L (45-117); Anion Gap 8 (5-15); BUN 11 mg/dL (7-18); BUN/Creat Ratio 14.3 RATIO (10-20); Calcium,Total 8.4 mg/dL (8.5-10.1); Chloride 110 mmol/L (98-107); Creatinine, Serum 0.77 mg/dL (0.55-1.02); EST Glomerular Filtration Rate 83 mL/min (>60); Est Glom Filt Rate - Afr Amer 100 mL/min (>60); Estimated Creatinine Clearance 99.23 ml/min; Globulin 3.4 g/dL (2.2-4.2); Glucose 101 mg/dL (74-106); Potassium 3.7 mmol/L (3.5-5.1); Protein, Total 6.9 g/dL (6.4-8.2); Sodium Level 136 mmol/L (136-145)
[2024-07-29 20:59] LABS: Lactic Acid 2.1 mmol/L (0.4-1.9)
[2024-07-29] MEDS: Acetaminophen 500 MG Tablet 1000 MG PO (22:08)
[2024-07-29] MEDS: 0.9% Normal Saline (1000mL) 1,000 ML 1000 ML IV (22:08)
[2024-07-29] MEDS: Ondansetron 4 MG/2 ML Vial IV (22:08)
[2024-07-29 22:24] LABS: Color, Urine Yellow (Yellow); Glucose, Dipstick Normal (Normal); Ketone-Dipstick Negative (Negative); Leukocyte Esterase-Dipstick 25 /ul (Negative); Nitrite-Dipstick Negative (Negative); Occult Blood-Urine 10 /ul (Negative); Protein-Dipstick 15 mg/dl (Negative); Specific Gravity, Urine 1.015 (1.002-1.030); Urine Bilirubin Dipstick Negative (Negative); Urine Clarity Sl. Cloudy (Clear); Urine Urobilinogen Normal (Normal)
[2024-07-29 22:35] LABS: Red Blood Cells-Urine 0-5 SEEN /hpf (0-5); Squamous Epithelial Cells - UA 5-10 SEEN /hpf (5-10); White Blood Cells 5-10 SEEN /hpf (0-5)
[2024-07-29 22:36] LABS: Bacteria 1+ /hpf (None Seen); Mucous, Urine 3+ /hpf (<or=2+)
[2024-07-29] MEDS: 0.9% Normal Saline (1000mL) 1,000 ML 999 ML IV (23:27)
[2024-07-29] MEDS: Piperacil/Tazobactam 4.5 GM in 0.9% Normal Saline (100mL MB+) 100 ML IV (23:27)
[2024-07-29 23:46] LABS: Reflex Lactate? Y
[2024-07-30] MEDS: Vancomycin HCl 2,000 MG in 0.9% Normal Saline (500mL Bag) 500 ML 250 MG IV (00:09)
--- NOTE | 2024-07-30 00:25 | PCM.HP.STD ---
HPI - General General Date of Admission: 07/30/24 HPI Narrative CHRIS NIX, is a 53 F who presents to the hospital with a fever of unknown origin. She is not neutropenic but she is undergoing chemotherapy for stage IV colon cancer. She was diagnosed in November and this the first time she has had fever since starting chemotherapy, and the fever started this evening. It has been about 8 days since her last chemotherapy dosing. In the ER a urine sample was unconvincing as she did have positive squamous cells however urine culture and blood cultures are pending. She does have metastatic lesions to the liver so her ALT being elevated as well as her low alkaline phosphatase is not surprising. She was given vancomycin and Zosyn in the ER which we will continue on admission. Chest x-ray was negative for pneumonia and viral studies so far has been negative. [facility] Medical History Wears hearing aid Wears glasses Depression Anxiety Thyroid disease Non-smoker Shortness of breath on exertion Obesity Hypothyroidism Anxiety and depression Abdominal pain Carcinoma of colon Rectal bleed Metastasis to liver Home Medications ?Medication ?Instructions ?Recorded ?Last Taken ?Type citalopram 40 mg tablet 40 mg PO DAILY 11/25/23 12/16/23 History estradiol 0.5 mg tablet 0.5 mg PO DAILY 11/25/23 12/16/23 History levothyroxine 112 mcg tablet 112 mcg PO DAILY 11/25/23 12/16/23 History loratadine 10 mg tablet 10 mg PO DAILY 11/25/23 12/16/23 History (Allerclear) progesterone micronized 200 mg 200 mg PO DAILY 11/25/23 12/16/23 History capsule tramadol 50 mg tablet 50 mg PO PRN PRN pain 12/13/23 12/12/23 History ondansetron 4 mg disintegrating 4 mg PO Q8H PRN PRN Nausea #10 tabs 12/14/23 Unknown Rx tablet oxycodone 5 mg capsule 5 mg PO Q6H PRN pain 5 days #20 12/14/23 Unknown Rx caps fluoxetine 40 mg capsule 40 mg PO DAILY 07/29/24 Unknown History lorazepam 0.5 mg tablet 0.5 mg PO BID PRN PRN anxiety 07/29/24 Unknown History olanzapine 5 mg tablet 5 mg PO QHS 07/29/24 Unknown History ondansetron HCl 8 mg tablet 8 mg PO Q8H PRN PRN nausea/vomiting 07/29/24 Unknown History oxycodone 5 mg tablet 5 mg PO Q6H PRN PRN pain 07/29/24 Unknown History pantoprazole 40 mg tablet,delayed 40 mg PO BID 07/29/24 Unknown History release prochlorperazine maleate 5 mg 10 mg PO Q6H PRN PRN 07/29/24 Unknown History tablet nausea/vomiting sennosides 8.6 mg tablet (Karlie-augustine) 8.6 mg PO Q12H PRN PRN constipation 07/29/24 Unknown History Allergy/AdvReac Type Severity Reaction Status Date / Time No Known Allergies Allergy Verified 07/29/24 19:36 Family History Mother COPD (chronic obstructive pulmonary disease) Lung cancer Diabetes Father Heart disease Hypertension Surgical History History of colostomy Hx of colonoscopy S/P laparoscopic colectomy History of bilateral tubal ligation H/O section Hx of appendectomy Social History household members: family and children Smoking Status: Never smoker alcohol intake: never substance use type: does not use ROS Constitutional Constitutional: Reports fever(s); Denies chills, fatigue or malaise Eyes Eyes: Denies blurry vision ENT HEENT: Denies headache(s) or nasal discharge Cardiovascular Cardiovascular: Denies chest pain, dyspnea on exertion or syncope Respiratory/Chest Respiratory/Chest: Denies cough, shortness of breath at rest or shortness of breath with exertion Gastrointestinal Gastrointestinal: Denies constipation, diarrhea, nausea or vomiting Genitourinary Genitourinary: Denies dysuria Neurologic Neurologic: Denies focal weakness, numbness or tremor(s) Psychiatric Psychiatric: Denies anxiety or depression Vital Signs Vital Signs Vital Signs: 07/29/24 19:36 07/29/24 20:05 07/29/24 20:08 Temperature 98.8 F Temperature Source Oral Pulse Rate 124 H Respiratory Rate 20 H Respiratory Effort Respiratory Pattern Blood Pressure 139/88 H 128/86 H Blood Pressure Mean 105 100 Pulse Ox 97 Oxygen Delivery Method Room Air Room Air 07/29/24 20:09 07/29/24 20:17 07/29/24 20:18 Temperature 102.0 F H Temperature Source Oral Pulse Rate 118 H 125 H Respiratory Rate 14 16 Respiratory Effort Short of Breath Respiratory Pattern Tachypnea Blood Pressure 128/86 H Blood Pressure Mean 100 Pulse Ox 98 96 Oxygen Delivery Method Room Air 07/29/24 20:30 07/29/24 20:45 07/29/24 21:00 Temperature 100.9 F H Temperature Source Oral Pulse Rate 123 H 127 H 128 H Respiratory Rate 18 30 H 17 Respiratory Effort Respiratory Pattern Blood Pressure 129/89 H 123/73 H Blood Pressure Mean 102 89 Pulse Ox 98 96 97 Oxygen Delivery Method Room Air 07/29/24 21:00 07/29/24 21:15 07/29/24 21:30 Temperature Temperature Source Pulse Rate 126 H 125 H Respiratory Rate 20 H 16 Respiratory Effort Respiratory Pattern Blood Pressure 123/73 H 134/82 H Blood Pressure Mean 88 98 Pulse Ox 98 97 Oxygen Delivery Method Room Air 07/29/24 21:45 07/29/24 22:00 07/29/24 22:00 Temperature 101 F H Temperature Source Oral Pulse Rate 143 H 131 H 135 H Respiratory Rate 17 18 15 Respiratory Effort Respiratory Pattern Blood Pressure 144/86 H 144/86 H Blood Pressure Mean 105 100 Pulse Ox 97 99 97 Oxygen Delivery Method Room Air 07/29/24 22:15 07/29/24 22:30 07/29/24 22:45 Temperature Temperature Source Pulse Rate 124 H 118 H 122 H Respiratory Rate 18 20 H 13 Respiratory Effort Respiratory Pattern Blood Pressure 131/81 H Blood Pressure Mean 91 Pulse Ox 98 97 Oxygen Delivery Method Room Air 07/29/24 23:00 07/29/24 23:29 Temperature 100.9 F H Temperature Source Pulse Rate 121 H 133 H Respiratory Rate 19 H 19 H Respiratory Effort Respiratory Pattern Blood Pressure 131/79 H 131/79 H Blood Pressure Mean 94 96 Pulse Ox 98 97 Oxygen Delivery Method Room Air Weight Weight: 203 lb 7.787 oz Body Mass Index (BMI) 30.9 Physical Exam Narrative General: Alert, Oriented x3, Cooperative, No apparent distress HEENT: Atraumatic, PERRLA, EOMI, Normocephalic Oral: Moist Mucosa Neck: Supple, No JVD Lungs: Clear to auscultation, Normal air movement, No rhonchi, No wheeze, No rales Cardiovascular: Tachycardic, Regular Rhythm, Normal S1, Normal S2, No murmurs Abdomen: Soft, Non Tender, Non-Distended, No Hepato-splenomegaly Extremities: No edema, Capillary Refill Less than 3 Seconds Skin: No rashes, No breakdown Musculoskeletal: No Tenderness to Palpation of Joints or Extremities Neurological: No focal neurological deficits, Motor Exam 5/5 strength throughout, Sensory exam intact to light touch and pain Psych/Mental Status: Normal Affect, Appropriate Results Lab / Micro Data 07/29/24 20:13 07/29/24 20:13 Labs: Laboratory Results - last 24 hr 07/29/24 20:13: WBC 15.9 H, RBC 4.19 L, Hgb 12.3, Hct 37.8, MCV 90.2, MCH 29.4, MCHC 32.5, RDW Std Deviation 56.5 H, RDW Coeff of Alex 17.9 H, Plt Count 356, MPV 9.8, Immature Gran % (Auto) 2.100 H, Neut % (Auto) 87.9 H, Lymph % (Auto) 4.3 L, Drew % (Auto) 4.3, Eos % (Auto) 0.6, Baso % (Auto) 0.8, Absolute Neuts (auto) 14.0 H, Absolute Lymphs (auto) 0.69 L, Nucleated RBC % 0, PT 13.1, INR 1.0, APTT 27.3, Sodium 136, Potassium 3.7, Chloride 110 H, Carbon Dioxide 19.0 L, Anion Gap 8, BUN 11, Creatinine 0.77, Estim Creat Clear Calc 99.23, Est GFR (MDRD) Af Amer 100, Est GFR (MDRD) Non-Af 83, BUN/Creatinine Ratio 14.3, Glucose 101, Lactic Acid 2.1 H*, Calcium 8.4 L, Total Bilirubin 0.30, AST 31, ALT 66 H, Alkaline Phosphatase 281 H, Total Protein 6.9, Albumin 3.5, Globulin 3.4, Albumin/Globulin Ratio 1.0 07/29/24 22:03: Urine Color Yellow, Urine Clarity Sl. Cloudy, Urine pH 5.0, Ur Specific [place] 1.015, Urine Protein 15 H, Urine Glucose (UA) Normal, Urine Ketones Negative, Urine Occult Blood 10 H, Urine Nitrite Negative, Urine Bilirubin Negative, Urine Urobilinogen Normal, Ur Leukocyte Esterase 25 H, Urine RBC 0-5 SEEN, Urine WBC 5-10 SEEN, Ur Squamous Epith Cells 5-10 SEEN, Urine Bacteria 1+, Urine Mucus 3+ Micro: Microbiology 07/29/24 20:42 Mucosa - Nose SARS-CoV-2, Influenza & RSV (PCR) - Final Imaging Radiology Impression Chest X-Ray 07/29/24 20:19 IMPRESSION: No radiographic evidence of acute cardiopulmonary disease. Electronically Signed: Hitesh Balbuena DO at 20:30 EST Reading Location ID and State: [facility] / [place] Tel [phone], Service support , Assessment & Plan Assessment/Plan (1) Acute febrile illness: PLAN: Plan 1. Fever of unknown origin in the setting of chemotherapy for stage IV colon cancer with metastatic lesions to the liver ? It has been about a day since her last chemotherapy dosing ? Continue with vancomycin and Zosyn ? Cultures are pending no obvious source at the moment ? She does have a port with good access ? Will continue with her home nausea medications as well as pain medication for her cancer 2. Hypothyroidism ? Stable ? Continue with Synthroid 3. Anxiety/depression ? Stable ? Continue with her home medications DVT: Lovenox 75 minutes was spent on direct patient care, including documentation as well as chart review and collaboration with colleagues Charges/Coding Visit Charges Inpatient E&M: 39564 Init Hosp L3
[2024-07-30] MEDS: 0.9% Normal Saline (1000mL) 1,000 ML 999 ML IV ×2 (00:34→02:16)
[2024-07-30 00:48] VITALS: BP 133/70; PULSE 127; RESP 18; TEMP 37.7; O2SAT 98; BMI 31.1
[2024-07-30 00:49] VITALS: BMI 31.0
--- NOTE | 2024-07-30 02:15 | PCM.RX.CS ---
Consult Antibiotic Management Pharmacy has been consulted to manage selected antibiotic: Vancomycin Type of Intervention Type of Consult: New start Labs Labs: Sodium 136 mmol/L (136-145) 07/29/24 20:13 Potassium 3.7 mmol/L (3.5-5.1) 07/29/24 20:13 Chloride 110 mmol/L (98-107) H 07/29/24 20:13 Carbon Dioxide 19.0 mmol/L (21.0-32.0) L 07/29/24 20:13 Anion Gap 8 (5-15) 07/29/24 20:13 BUN 11 mg/dL (7-18) 07/29/24 20:13 Creatinine 0.77 mg/dL (0.55-1.02) 07/29/24 20:13 Est GFR (MDRD) Af Amer 100 mL/min (>60) 07/29/24 20:13 Est GFR (MDRD) Non-Af 83 mL/min (>60) 07/29/24 20:13 BUN/Creatinine Ratio 14.3 RATIO (10-20) 07/29/24 20:13 Glucose 101 mg/dL (74-106) 07/29/24 20:13 Microbiology Microbiology: Microbiology 07/29/24 20:42 Mucosa - Nose SARS-CoV-2, Influenza & RSV (PCR) - Final Dosing Weight Weight used for dosin kg Estimated Creatinine Clearance Estimated Creatinine Clearance: 99.23 Goal Trough Goal Trough: 15-20 mcg/mL Pharmacy Plan for Drug Dosing Pharmacy Plan for Drug Dosing: Pharmacy Service will continue to monitor and adjust dosing as required. 2000MG GIVEN IN ER 07/30 @ 0009. START 1750MG Q12H AND DRAW TROUGH PRIOR TO 4TH DOSE Follow-Up Labs Follow-Up Labs: Trough: Vancomycin Date/Time Labs Ordered Labs to be done on [date and time ordered]: 07/31 @ 1130
[2024-07-30] MEDS: 0.9% Normal Saline (1000mL) 1,000 ML 100 ML IV ×2 (03:29→13:19)
[2024-07-30] MEDS: Levothyroxine 112 MCG Tablet PO (05:56)
[2024-07-30] MEDS: Piperacil/Tazobactam 3.375 GM in 0.9% Normal Saline (50mL MB+) 50 ML IV ×3 (05:56→21:12)
[2024-07-30 06:00] VITALS: BP 115/74; PULSE 122; RESP 16; TEMP 36.9; O2SAT 96
[2024-07-30 07:00] LABS: Absolute Lymphocyte Count 0.59 X10^3/uL (0.83-4.51); Absolute Neutrophil Count 7.8 X10^3/uL (2.0-7.7); Basophil# 0.05 X10^3/uL; Basophil% 0.5 % (0-1); Eosinophil# 0.02 X10^3/uL; Eosinophils% 0.2 % (0-5); Hematocrit 32.1 % (37-47); Hemoglobin 10.3 g/dL (12.0-15.0); Lymphocyte # 0.59 X10^3/ul (0.83-4.51); Lymphocyte % 6.3 % (19-41); Mean Corp Hgb Conc 32.1 g/dL (32-36); Mean Corpuscular Hgb 29.3 pg (27.0-32.0); Mean Corpuscular Volume 91.5 fL (81-99); Monocyte# 0.55 X10^3/uL; Monocyte% 5.9 % (0-10); NRBC Flagged by Analyzer 0 % (0-5); Neutrophil # 7.83 X10^3/uL (2.7-7.7); Neutrophil % 84.2 % (47-70); POSITIVE DIFFERENTIAL YES; Platelet Count 254 K/mm3 (150-450); RBC Distribution Width CV 18.3 % (11.6-14.6); RBC Distribution Width SD 59.5 fl (35.1-43.9); Red Blood Count 3.51 M/mm3 (4.2-5.4); White Blood Count 9.3 K/mm3 (4.4-11.0)
[2024-07-30 07:46] LABS: Anion Gap 5 (5-15); BUN 8 mg/dL (7-18); BUN/Creat Ratio 10.3 RATIO (10-20); Calcium,Total 7.4 mg/dL (8.5-10.1); Chloride 115 mmol/L (98-107); Creatinine, Serum 0.77 mg/dL (0.55-1.02); EST Glomerular Filtration Rate 82 mL/min (>60); Est Glom Filt Rate - Afr Amer 100 mL/min (>60); Glucose 98 mg/dL (74-106); Potassium 3.8 mmol/L (3.5-5.1); Sodium Level 140 mmol/L (136-145)
[2024-07-30 09:29] VITALS: BP 109/75; PULSE 110; RESP 16; TEMP 36.6; O2SAT 97
[2024-07-30] MEDS: Enoxaparin 40 MG/0.4 ML Syringe SC (09:30)
[2024-07-30] MEDS: Pantoprazole Sodium 40 MG Tablet PO ×2 (09:30→21:12)
[2024-07-30] MEDS: Loratadine 10 MG Tablet PO (09:30)
[2024-07-30] MEDS: Fluoxetine HCl 40 MG CAPSULE PO (09:30)
[2024-07-30] MEDS: Ondansetron 8 MG Tablet PO ×2 (09:30→19:49)
--- NOTE | 2024-07-30 12:01 | CASEMGMT ---
VARSHA MONTALVO Assessment ? Face to Face with patient for initial?transition planning/care coordination assessment. VARSHA MONTALVO introduced self and role at [facility], pt voices understanding. Pt is A&Ox4 and is resting comfortably in bed and is calm. Care providers, pharmacy, and demographics verified. ? Admitting dx: ?fever, unknown origin LACE Strata: ?2 PCP: ?Blanca Adame Specialists: ?Nathan (oncology), Theo (ENT) Preferred Pharmacy: ?[facility] Insurance: ?[facility] Prescription Benefit: ?yes LNOK: ?Mona Higgins (friend), David Campos (son) Living Arrangements: ?patient lives with her two adult children in a split-level home with eight steps to the upper and lower portions. Patient states that there are five steps to enter the house. ADLs/IADLs:?independent Transportation: ?self, friend. Denies concerns DME: ?patient has a colostomy and has all of the supplies to appropriately care for this independently. Denies further DME uses or needs HHC/SNF: ?reports alf home healthcare this year through [facility]. Denies SNF history Pt?s goal:?return home Plan: ?anticipate home without any additional needs once medically ready. Six click score is currently 24. Cultures are pending. At this time, the patient denies any needs for home healthcare, outpatient therapy, or CCN. Patient denies any further questions or concerns. Report given to STOCK [employer] SUPERVISORsenior product marketing manager. Kayla Sparks RN, CM
[2024-07-30] MEDS: Vancomycin HCl 1,750 MG in 0.9% Normal Saline (500mL Bag) 500 ML 250 MG IV (13:19)
--- NOTE | 2024-07-30 14:38 | CHAPLAIN ---
Type of Pastoral Visit _x__ Initial Visit ___ Follow-up Visit ___ On-call Visit ___ General Patient Visit ___ Spiritual Assessment ___ Family Conference ___ Bereavement ___ Rapid Response ___ Code Blue ___ Other (describe below) Pastoral Care Referral From _x__ Patient ___ Family ___ Nurse ___ Physician ___ Auto Self Service Station Attendant ___ Furnace Erector ___ Other (describe below) Sacrament/Intervention _x__ Active listening ___ Anointing ___ Jainism ___ Bereavement ___ Communion _x__ Dana exploration ___ _x__ Life review _x__ Prayer ___ Reconciliation ___ Sacrament of Sick _x__ Supportive presence ___ Wedding ___ Other (describe below) Pastoral Comments patient reviews her more recent health and the treatments she is receiving; pt speaks of the visit from her paint roller assembler/friend; pt willingly talks about her prognosis and plans for treatment and living; pt has realistic perspective but wants to use her time remaining for special activities and is thinking about 'how to live'; pt addresses the spiritual aspect and her acceptance of this illness; pt will be a grandmother in the early summer and looks forward to having this new person in her life; pt welcomes presence and prayer
[2024-07-30 15:42] VITALS: BP 111/63; PULSE 115; RESP 16; TEMP 37.4; O2SAT 96
--- NOTE | 2024-07-30 17:01 | PN.HOSP_ITS ---
Hospitalist Note Patient is a 53-year-old white female who presented to the emergency department [facility] early on the a.m. of 07/30/2024 with a fever of unknown origin. She is not neutropenic but she is currently undergoing chemotherapy for stage IV colon cancer. Her last chemo was about 8 days prior to presentation. She was diagnosed in November and has been undergoing some form of treatment on and off since that point in time. Vital signs on presentation showed initial temperature of 98.8 with a Tmax in the emergency department of 102 degrees. Heart rate was 124, respiratory rate was 20, blood pressure was 139/88, and pulse ox was 97% on room air. CBC on presentation showed a white count of 15.9 with a normal hemoglobin and platelet count. Coags were normal. Chemistry panel was overtly unremarkable. She did have a mild lactic acid on presentation of 2.1 but this resolved quickly. Mild ALT elevation was noted on presentation which appears to be normal for her compared to previous. Her UA is not suggestive of infection. Chest x-ray was unremarkable. Blood cultures were obtained in the emergency department and following this broad-spectrum antibiotics were ordered. COVID/flu/RSV was obtained and negative. Respiratory viral panel was obtained and found to be negative. C. difficile was ordered and was found to be negative. Urine culture was sent and preliminary shows no growth to date. Her fever curve does seem to be improving and her white count has improved as well. Clinically at this point I am not sure what we are treating but will have to wait for blood cultures before we can narrow antibiotics so at this time we will continue vancomycin and Zosyn.
[2024-07-30] MEDS: Loperamide 2 MG Capsule PO (17:39)
[2024-07-30] MEDS: traMADol 50 MG Tablet PO (19:49)
[2024-07-30 19:55] VITALS: BP 140/77; PULSE 110; RESP 18; TEMP 37.3; O2SAT 97
[2024-07-30] MEDS: OLANZapine 5 MG/TAB TAB.RAPDIS PO (21:12)
[2024-07-30] MEDS: Acetaminophen 325 MG Tablet 650 MG PO (21:46)
[2024-07-30 23:20] VITALS: BP 128/80; PULSE 112; RESP 18; TEMP 37.6; O2SAT 96
[2024-07-30] MEDS: proCHLORPERazine 5 MG Tablet 10 MG PO (23:32)
[2024-07-31] MEDS: Vancomycin HCl 1,750 MG in 0.9% Normal Saline (500mL Bag) 500 ML 250 MG IV ×2 (01:23→13:53)
[2024-07-31] MEDS: Levothyroxine 112 MCG Tablet PO (05:18)
[2024-07-31] MEDS: Piperacil/Tazobactam 3.375 GM in 0.9% Normal Saline (50mL MB+) 50 ML IV ×3 (05:18→21:18)
[2024-07-31 05:20] VITALS: BP 120/85; PULSE 98; RESP 18; TEMP 36.7; O2SAT 98
[2024-07-31 08:22] LABS: Absolute Lymphocyte Count 1.27 X10^3/uL (0.83-4.51); Basophil# 0.04 X10^3/uL; Basophil% 0.5 % (0-1); Eosinophil# 0.08 X10^3/uL; Eosinophils% 0.9 % (0-5); Hematocrit 32.9 % (37-47); Hemoglobin 10.7 g/dL (12.0-15.0); Lymphocyte # 1.27 X10^3/ul (0.83-4.51); Lymphocyte % 14.9 % (19-41); Mean Corp Hgb Conc 32.5 g/dL (32-36); Mean Corpuscular Hgb 29.2 pg (27.0-32.0); Mean Corpuscular Volume 89.9 fL (81-99); Mean Platelet Vol. 9.8 fl (6.2-12.0); Monocyte# 0.87 X10^3/uL; Monocyte% 10.2 % (0-10); NRBC Flagged by Analyzer 0 % (0-5); Neutrophil # 5.96 X10^3/uL (2.7-7.7); Neutrophil % 70.1 % (47-70); Platelet Count 243 K/mm3 (150-450); RBC Distribution Width CV 18.3 % (11.6-14.6); RBC Distribution Width SD 58.7 fl (35.1-43.9); Red Blood Count 3.66 M/mm3 (4.2-5.4); White Blood Count 8.5 K/mm3 (4.4-11.0)
[2024-07-31] MEDS: Fluoxetine HCl 40 MG CAPSULE PO (08:26)
[2024-07-31] MEDS: Pantoprazole Sodium 40 MG Tablet PO ×2 (08:26→21:18)
[2024-07-31] MEDS: Enoxaparin 40 MG/0.4 ML Syringe SC (08:26)
[2024-07-31] MEDS: Loratadine 10 MG Tablet PO (08:26)
[2024-07-31 08:32] VITALS: O2SAT 97
[2024-07-31 08:36] VITALS: TEMP 37.3
--- NOTE | 2024-07-31 09:05 | PCM.PN.HOSP ---
Reason for Visit Reason for Visit: Fever Subjective Subjective Patient reports she had some transient nausea and couple episodes of emesis last night but states she feels fine this morning. She is unclear why it happened. Denies any problems at this time was able to eat breakfast without any difficulty. States her body aches are gone and she is generally feeling much better. Objective Data Objective Data Vital Signs: Vital Signs Temp Pulse Resp BP Pulse Ox O2 Del Method 99.1 F 98 18 120/85 H 97 Room Air 07/31/24 08:36 07/31/24 05:20 07/31/24 05:20 07/31/24 05:20 07/31/24 08:32 07/31/24 08:32 Oxygen Delivery Method Room Air Weight: 93 kg Body Mass Index (BMI) 31.0 Intake & Output: Intake and Output for Last 24 Hours 07/29/24 07/30/24 07/31/24 23:59 23:59 23:59 Intake Total 6683.33 / 6683.33 635 / 635 Balance 6683.33 / 6683.33 635 / 635 Lab / Micro Data 07/31/24 07:50 07/31/24 07:50 Labs: Laboratory Results - last 24 hr 07/31/24 07:50: WBC 8.5, RBC 3.66 L, Hgb 10.7 L, Hct 32.9 L, MCV 89.9, MCH 29.2, MCHC 32.5, RDW Std Deviation 58.7 H, RDW Coeff of Alex 18.3 H, Plt Count 243, MPV 9.8, Immature Gran % (Auto) 3.400 H, Neut % (Auto) 70.1 H, Lymph % (Auto) 14.9 L, [place] % (Auto) 10.2 H, Eos % (Auto) 0.9, Baso % (Auto) 0.5, Absolute Neuts (auto) 6.0, Absolute Lymphs (auto) 1.27, Nucleated RBC % 0 Micro: Microbiology 07/30/24 09:38 Stool Clostridioides difficile (PCR) - Final 07/29/24 22:03 Urine, Clean Catch Urine Culture - Preliminary Culture exhibits no growth. 07/29/24 23:42 Mucosa - Nasopharyngeal Respiratory Panel (PCR) - Final 07/29/24 20:42 Mucosa - Nose SARS-CoV-2, Influenza & RSV (PCR) - Final Physical Exam Const alert, oriented x3 and no apparent distress Constitutional Narrative: Obese, middle-aged, white female, sitting up in bed, appears better today, does not appear toxic HEENT head/scalp atraumatic and moist oral mucous membranes Head and Scalp: normocephalic Resp normal respiratory effort, no retractions, no use of accessory muscles and clear to auscultation bilaterally Auscultation: Negative for rales, rhonchi or wheezes Cardio regular rate, regular rhythm, S1 normal heart sound, S2 normal heart sound, no murmurs, no rub, no gallops and no clicks GI normal to inspection, nondistended, normoactive bowel sounds, soft to palpation and non-tender GI Narrative: Ostomy in place with good output in the left mid to lower quadrant, stoma is pink Extremity no clubbing, cyanosis or edema Extremity Narrative: Pedal pulses 2+ bilaterally Neuro oriented x3, moves all extremities and no focal motor deficits Speech: speech normal Psych affect normal Psych Narrative: Very pleasant, interacts appropriately Assessment & Plan Assessment/Plan (1) Acute febrile illness: PLAN: Plan Fever of unknown origin in the setting of chemotherapy for stage IV colon cancer with metastatic lesions to the liver -Last chemotherapy prior to presentation was 8 days and patient is due for her next chemo on 08/04/2024 -Will likely need to hold next chemotherapy -Continue with vancomycin and Zosyn -Blood cultures remain pending and will have 48 hours tonight -COVID/flu/RSV negative Respiratory viral panel is unremarkable -C. difficile is negative -Urine cultures unremarkable -Chest x-ray is unremarkable -If blood cultures are negative will check CT of the abdomen pelvis with and without contrast to rule out any intra-abdominal process and if negative will plan on discharge home with 10 days of Levaquin to complete 14-day course -I did discuss the case with Dr. Evans and he agreed with the plan and will see her the following week Lactic acidosis -Mild on admission at 2.1 -Resolved quickly with IV fluids Anemia -hemoglobin is 10.3 -remained stable and suspect this is baseline -Will repeat CBC in a.m. Hypothyroidism -Stable -Continue with Synthroid GERD -Continue home PPI Anxiety/depression -Stable -Continue with her home medications DVT -Lovenox 40 mg daily CODE STATUS -Full code Charges/Coding Visit Charges Inpatient E&M: 18687 Subs Hosp L2
[2024-07-31 09:13] LABS: ALB/GLOB Ratio 0.9 RATIO (0.9-2.4); AST(SGOT) 28 U/L (15-37); Alanine Aminotransfer ALT/SGPT 53 U/L (13-56); Alkaline Phosphatase 223 U/L (45-117); Anion Gap 6 (5-15); BUN 4 mg/dL (7-18); BUN/Creat Ratio 5.7 RATIO (10-20); Calcium,Total 8.7 mg/dL (8.5-10.1); Chloride 114 mmol/L (98-107); EST Glomerular Filtration Rate 92 mL/min (>60); Est Glom Filt Rate - Afr Amer 111 mL/min (>60); Estimated Creatinine Clearance 109.56 ml/min; Globulin 3.3 g/dL (2.2-4.2); Glucose 93 mg/dL (74-106); Magnesium 1.9 mg/dL (1.6-2.6); Phosphorus 2.7 mg/dL (2.5-4.9); Potassium 3.7 mmol/L (3.5-5.1); Protein, Total 6.3 g/dL (6.4-8.2); Sodium Level 140 mmol/L (136-145)
[2024-07-31 11:20] VITALS: BP 113/68; PULSE 98; RESP 18; TEMP 37.3; O2SAT 97
[2024-07-31 12:02] LABS: Vancomycin, Trough Level 18.6 ug/mL (5.0-15.0)
--- NOTE | 2024-07-31 12:29 | PCM.RX.CS ---
Consult Antibiotic Management Pharmacy has been consulted to manage selected antibiotic: Vancomycin Type of Intervention Type of Consult: Follow-up Suspected Infection Suspected Infection: Other Labs Labs: Sodium 140 mmol/L (136-145) 07/31/24 07:50 Potassium 3.7 mmol/L (3.5-5.1) 07/31/24 07:50 Chloride 114 mmol/L (98-107) H 07/31/24 07:50 Carbon Dioxide 21.0 mmol/L (21.0-32.0) 07/31/24 07:50 Anion Gap 6 (5-15) 07/31/24 07:50 BUN 4 mg/dL (7-18) L 07/31/24 07:50 Creatinine 0.70 mg/dL (0.55-1.02) 07/31/24 07:50 Est GFR (MDRD) Af Amer 111 mL/min (>60) 07/31/24 07:50 Est GFR (MDRD) Non-Af 92 mL/min (>60) 07/31/24 07:50 BUN/Creatinine Ratio 5.7 RATIO (10-20) L 07/31/24 07:50 Glucose 93 mg/dL (74-106) 07/31/24 07:50 Vancomycin Trough 18.6 ug/mL (5.0-15.0) H 07/31/24 11:23 Microbiology Microbiology: Microbiology 07/30/24 09:38 Stool Clostridioides difficile (PCR) - Final 07/29/24 22:03 Urine, Clean Catch Urine Culture - Preliminary Culture exhibits no growth. 07/29/24 23:42 Mucosa - Nasopharyngeal Respiratory Panel (PCR) - Final 07/29/24 20:42 Mucosa - Nose SARS-CoV-2, Influenza & RSV (PCR) - Final Goal Trough Goal Trough: 15-20 mcg/mL Pharmacy Plan for Drug Dosing Pharmacy Plan for Drug Dosing: VANCOMYCIN LEVEL RECEIVED Current Vancomycin Dose: 1750mg Q12H Number of Doses Received: 1750mg x2, 2000mg x1 Vancomycin Level: 18.6 Hours Since Last Dose: 12 Renal Function: sCr 0.7 Renal Function Trend: stable Lab/Micro: pending Vancomycin Plan/Comments: No - continue Vancomycin 1750mg Q12H Pending Level: Vancomycin trough @ 2330 08/01/24 Pharmacy Service will continue to monitor and adjust dosing as required. Follow-Up Labs Follow-Up Labs: Trough: Vancomycin (08/01/24 @ 23:30)
[2024-07-31 17:00] VITALS: BP 113/68; PULSE 98; RESP 16; TEMP 37.2; O2SAT 97
[2024-07-31 20:10] VITALS: BP 113/84; PULSE 95; RESP 18; TEMP 37.2; O2SAT 97
[2024-07-31] MEDS: 0.9% Saline Lock 10 ML Syringe IV (20:23)
[2024-07-31] MEDS: Acetaminophen 325 MG Tablet 650 MG PO (20:23)
[2024-07-31] MEDS: Loperamide 2 MG Capsule PO (20:23)
[2024-07-31] MEDS: OLANZapine 5 MG/TAB TAB.RAPDIS PO (21:18)
[2024-08-01 01:15] VITALS: BP 95/55; PULSE 80; RESP 16; TEMP 37; O2SAT 96
[2024-08-01] MEDS: Vancomycin HCl 1,750 MG in 0.9% Normal Saline (500mL Bag) 500 ML 250 MG IV ×2 (01:16→12:09)
[2024-08-01 03:25] VITALS: BP 109/59; PULSE 81; RESP 16; TEMP 37.1; O2SAT 97
[2024-08-01] MEDS: 0.9% Saline Lock 10 ML Syringe IV (03:27)
[2024-08-01] MEDS: Levothyroxine 112 MCG Tablet PO (06:17)
[2024-08-01] MEDS: Piperacil/Tazobactam 3.375 GM in 0.9% Normal Saline (50mL MB+) 50 ML IV (06:20)
[2024-08-01 06:55] LABS: Hematocrit 32.4 % (37-47); Hemoglobin 10.4 g/dL (12.0-15.0); Mean Corp Hgb Conc 32.1 g/dL (32-36); Mean Corpuscular Hgb 28.7 pg (27.0-32.0); Mean Corpuscular Volume 89.5 fL (81-99); Mean Platelet Vol. 9.4 fl (6.2-12.0); Platelet Count 226 K/mm3 (150-450); RBC Distribution Width CV 18.1 % (11.6-14.6); RBC Distribution Width SD 57.7 fl (35.1-43.9); Red Blood Count 3.62 M/mm3 (4.2-5.4); White Blood Count 7.4 K/mm3 (4.4-11.0)
[2024-08-01 07:08] LABS: Anion Gap 4 (5-15); BUN 7 mg/dL (7-18); BUN/Creat Ratio 9.9 RATIO (10-20); Calcium,Total 8.9 mg/dL (8.5-10.1); Chloride 114 mmol/L (98-107); Creatinine, Serum 0.71 mg/dL (0.55-1.02); EST Glomerular Filtration Rate 92 mL/min (>60); Est Glom Filt Rate - Afr Amer 111 mL/min (>60); Estimated Creatinine Clearance 108.02 ml/min; Glucose 92 mg/dL (74-106); Potassium 3.7 mmol/L (3.5-5.1); Sodium Level 141 mmol/L (136-145)
[2024-08-01] MEDS: Enoxaparin 40 MG/0.4 ML Syringe SC (08:14)
[2024-08-01] MEDS: Pantoprazole Sodium 40 MG Tablet PO (08:14)
[2024-08-01] MEDS: Fluoxetine HCl 40 MG CAPSULE PO (08:14)
[2024-08-01] MEDS: Loratadine 10 MG Tablet PO (08:14)
[2024-08-01 08:20] VITALS: BP 122/70; PULSE 82; RESP 15; TEMP 37.1; O2SAT 97
--- NOTE | 2024-08-01 08:51 | CT_ITS ---
STUDY: CT ABDOMEN AND PELVIS WITH CONTRAST REASON FOR EXAM: Female, 53 years old. Fever of unknown origin RADIATION DOSAGE (If Supplied By Facility): CTDIvol = ( 14.13 ) mGy, DLP = ( 1058.83 ) mGycm TECHNIQUE: Transaxial images were obtained from the dome of the diaphragm to the symphysis pubis with oral contrast. Oral and amp; IV Gastrografin and amp; 100mL Isovue-370 was administered. Sagittal and coronal images were reconstructed. Individualized dose optimization techniques were used for this CT. COMPARISON: 12/14/2023 FINDINGS: The visualized lung bases are unremarkable aside from dependent atelectasis.. The visualized portions of the heart are within normal limits. Diffuse fatty infiltration of liver noted. There are persistent suspicious hypoattenuated lesions throughout both lobes of the liver consistent with metastasis. No significant change since the previous study. The gallbladder is contracted. Stable borderline splenomegaly. Normal pancreas. Normal bilateral adrenal glands. Normal right kidney. Normal left kidney. Normal visualized stomach. The bowel loops are unremarkable. There is a left lower quadrant ostomy site free of complication. Appendix not visualized. Normal abdominal aorta. Normal inferior vena cava. Normal retroperitoneum. Stable postsurgical changes in the left abdomen likely from ostomy placement. Normal urinary bladder. Uterus is present, the endometrium cannot be accurately evaluated with CT. No suspicious adnexal mass or free fluid. Normal abdominal wall. Bony structures show degenerative change with scattered punctate sclerotic lesions within the pelvis which could also represent metastasis. CT/Abdomen/Pelvis WITH Contrast IMPRESSION: Persistent diffuse fatty infiltration of the liver with scattered suspicious hypoattenuated hepatic lesions consistent with hepatic metastasis. No significant interval change since the previous study. Stable nonspecific splenomegaly Postsurgical changes from left lower quadrant ostomy. No acute inflammation noted Degenerative bony changes with scattered sclerotic changes within the pelvis which could represent metastasis. Electronically Signed: Gadiel Mendez MD at 12:49 EST ,
--- NOTE | 2024-08-01 13:04 | DS.PCM_ITS ---
Providers Date of Admission: 07/30/24 Date of Discharge: 08/01/24 Primary Care Physician: Blanca Adame, SILVIA Reason For Visit: FEVER UNKNOWN ORIGIN Diagnosis Discharge Diagnosis (1) Acute febrile illness: Status: Acute Code(s): R50.9 - Fever, unspecified Plan Fever of unknown origin in the setting of chemotherapy for stage IV colon cancer with metastatic lesions to the liver -Last chemotherapy prior to presentation was 8 days and patient is due for her next chemo on 08/04/2024 -Will likely need to hold next chemotherapy -Continue with vancomycin and Zosyn -Blood cultures remain pending and will have 48 hours tonight -COVID/flu/RSV negative Respiratory viral panel is unremarkable -C. difficile is negative -Urine cultures unremarkable -Chest x-ray is unremarkable -If blood cultures are negative will check CT of the abdomen pelvis with and without contrast to rule out any intra-abdominal process and if negative will plan on discharge home with 10 days of Levaquin to complete 14-day course -I did discuss the case with Dr. Evans and he agreed with the plan and will see her the following week Lactic acidosis -Mild on admission at 2.1 -Resolved quickly with IV fluids Anemia -hemoglobin is 10.3 -remained stable and suspect this is baseline -Will repeat CBC in a.m. Hypothyroidism -Stable -Continue with Synthroid GERD -Continue home PPI Anxiety/depression -Stable -Continue with her home medications DVT -Lovenox 40 mg daily CODE STATUS -Full code Medications at Discharge Home Medications estradiol 0.5 mg tablet 0.5 mg PO DAILY 11/25/23 levothyroxine 112 mcg tablet 112 mcg PO DAILY 11/25/23 loratadine 10 mg tablet (Allerclear) 10 mg PO DAILY 11/25/23 progesterone micronized 200 mg capsule 200 mg PO DAILY hot flashes 11/25/23 tramadol 50 mg tablet 50 mg PO PRN PRN pain 12/13/23 ondansetron 4 mg disintegrating tablet 4 mg PO Q8H PRN PRN Nausea #10 tabs 12/14/23 oxycodone 5 mg capsule 5 mg PO Q6H PRN pain 5 days #20 caps 12/14/23 fluoxetine 40 mg capsule 40 mg PO DAILY 07/29/24 lorazepam 0.5 mg tablet 0.5 mg PO BID PRN PRN anxiety 07/29/24 olanzapine 5 mg tablet 5 mg PO QHS 07/29/24 ondansetron HCl 8 mg tablet 8 mg PO Q8H PRN PRN nausea/vomiting 07/29/24 oxycodone 5 mg tablet 5 mg PO Q6H PRN PRN pain 07/29/24 pantoprazole 40 mg tablet,delayed release 40 mg PO BID 07/29/24 prochlorperazine maleate 5 mg tablet 10 mg PO Q6H PRN PRN nausea/vomiting 07/29/24 sennosides 8.6 mg tablet (Karlie-augustine) 8.6 mg PO Q12H PRN PRN constipation 07/29/24 levofloxacin 750 mg tablet 750 mg PO DAILY #12 tabs 08/01/24 Hospital Course Operations None Procedures - (Chest x-ray/CT abdomen and pelvis with oral and IV contrast) Summary of Care Provided Minutes Spent on Discharge: 36 Hospital Course: Mrs. Chacon is a 53-year-old white female who presented to the emergency department [facility] early on the a.m. of 07/30/2024 with a fever of unknown origin. She is not neutropenic but she is currently undergoing chemotherapy for stage IV colon cancer. Her last chemo was about 8 days prior to presentation. She was diagnosed in November and has been undergoing some form of treatment on and off since that point in time. Vital signs on presentation showed initial temperature of 98.8 with a Tmax in the emergency department of 102 degrees. Heart rate was 124, respiratory rate was 20, blood pressure was 139/88, and pulse ox was 97% on room air. CBC on presentation showed a white count of 15.9 with a normal hemoglobin and platelet count. Coags were normal. Chemistry panel was overtly unremarkable. She did have a mild lactic acid on presentation of 2.1 but this resolved quickly. Mild ALT elevation was noted on presentation which appears to be normal for her compared to previous. Her UA is not suggestive of infection. Chest x-ray was unremarkable. Blood cultures were obtained in the emergency department and following this broad-spectrum antibiotics were ordered. COVID/flu/RSV was obtained and negative. Respiratory viral panel was obtained and found to be negative. C. difficile was ordered and was found to be negative. She was admitted to the telemetry floor and placed on vancomycin and Zosyn. Urine culture was negative except for mixed growth organisms that were gram-positive in nature secondary to contaminant and blood cultures were negative at 48 hours. Given the fact we could not identify a source for fever we did obtain a CT of the abdomen pelvis with oral and IV contrast which was found to be negative for any infectious etiology contributing to the above. Fevers had completely resolved on IV antibiotics and her white count had normalized. She was feeling much better. I discussed the case with her oncologist, Dr. Evans, who agreed that if her CAT scan was negative we should send her home on Levaquin. She was discharged on Levaquin to complete another 12 days to have an overall course of 14 days of antibiotics for fever of unknown origin. She is to follow-up with her primary care physician in [address] Evans's office on Saturday to discuss her chemotherapy which is to be on Saturday (I suspect this will be held) and to obtain appointment to see Dr. Evans the following week. She was discharged home in stable condition with a prescription for Levaquin on 08/01/2024. Discharge diagnoses: Fever of unknown origin Stage IV colon cancer with metastatic disease to the liver Colostomy Lactic acidosis-resolved Anemia-stable Hypothyroidism GERD Anxiety Depression Physical Exam Narrative Patient states she is feeling much better today, no further nausea or vomiting, no further chills or rigors. Anxious to go home. Patient afebrile in the last 24 hours Const alert, oriented x3, no apparent distress, average body habitus, no limitations and well nourished Constitutional Narrative: Obese, middle-aged, white female, sitting up in bed, appears well, nontoxic General Appearance: cooperative, comfortable, well kempt and well developed Exam Limitations: no limitations Nutritional Appearance: obese HEENT normocephalic, head/scalp atraumatic, hearing grossly normal bilaterally and moist oral mucous membranes HEENT Narrative: Mallampati 2, no thrush Eyes EOMs intact bilaterally Eyes Narrative: No scleral icterus Neck supple Neck Narrative: Trachea midline Resp normal respiratory effort, no retractions, no use of accessory muscles and clear to auscultation bilaterally Auscultation: Negative for rales, rhonchi or wheezes Cardio regular rate, regular rhythm, S1 normal heart sound, S2 normal heart sound, no murmurs, no rub, no gallops and no clicks GI normal to inspection, nondistended, normoactive bowel sounds, soft to palpation and non-tender GI Narrative: Ostomy in place with good output in the left mid to lower quadrant, stoma is pink Extremity no clubbing, cyanosis or edema Extremity Narrative: Pedal pulses 2+ bilaterally Skin skin turgor normal, no jaundice, no petechiae and no mottling Neuro oriented x3, moves all extremities and no focal motor deficits Speech: speech normal Psych affect normal Psych Narrative: Very pleasant, interacts appropriately Weight / BMI Weight Weight: 93 kg Body Mass Index (BMI) 31.0 ABG / Lab / Microbiology Data 08/01/24 06:08 08/01/24 06:08 Laboratory: Laboratory Results - last 24 hr 08/01/24 06:08: WBC 7.4, RBC 3.62 L, Hgb 10.4 L, Hct 32.4 L, MCV 89.5, MCH 28.7, MCHC 32.1, RDW Std Deviation 57.7 H, RDW Coeff of Alex 18.1 H, Plt Count 226, MPV 9.4, Sodium 141, Potassium 3.7, Chloride 114 H, Carbon Dioxide 24.0, Anion Gap 4 L, BUN 7, Creatinine 0.71, Estim Creat Clear Calc 108.02, Est GFR (MDRD) Af Amer 111, Est GFR (MDRD) Non-Af 92, BUN/Creatinine Ratio 9.9 L, Glucose 92, Calcium 8.9 Microbiology: Microbiology 07/29/24 22:03 Urine, Clean Catch Urine Culture - Final Mixed Gram Positive Organisms 07/29/24 20:42 Blood Culture (Wb) - Left Hand Blood Culture - Preliminary No growth in 48 hours. 07/29/24 20:13 Blood Culture (Wb) - Chest Blood Culture - Preliminary No growth in 48 hours. 07/30/24 09:38 Stool Clostridioides difficile (PCR) - Final 07/29/24 23:42 Mucosa - Nasopharyngeal Respiratory Panel (PCR) - Final 07/29/24 20:42 Mucosa - Nose SARS-CoV-2, Influenza & RSV (PCR) - Final Radiography Diagnostic Testing: Radiology Impression Abdomen/Pelvis CT 08/01/24 08:51 IMPRESSION: Persistent diffuse fatty infiltration of the liver with scattered suspicious hypoattenuated hepatic lesions consistent with hepatic metastasis. No significant interval change since the previous study. Stable nonspecific splenomegaly Postsurgical changes from left lower quadrant ostomy. No acute inflammation noted Degenerative bony changes with scattered sclerotic changes within the pelvis which could represent metastasis. Electronically Signed: Gadiel Mendez MD at 12:49 EST , D/C Instructions Discharge Diet: - (Resume previous home diet) Discharge Activity: Return to Normal Activity Return to work on: 08/03/24 DC O2, CPAP, BIPAP Needs Home O2 Discharge instructions: No Meaningful Use Info Meaningful Use Meaningful Use Diagnoses (Choose all that apply): None applicable Ischemic Stroke Statin Dosing Therapy Reference: STATIN DOSE THERAPY REFERENCE: * Patients > 75 years receive moderate or high dose statin therapy. * Patients 75 years or YOUNGER should receive HIGH intensity statin dose unless contraindicated. You will be required to document reason for non-treatment if statin daily dose does not meet guidelines. HIGH DOSE STATIN THERAPY DAILY Atorvastatin > than or = to 40 mg Rosuvastatin > than or = to 20 mg Amlodipine + Atorvastatin > than or = to 2.5/40 mg Ezetimibe + Simvastatin 10/80 mg Simvastatin 80mg Discharge Plan Admission Admit Date/Time: 07/30/24 00:22 Primary Reason for Your Visit: Fever Attending Provider: Malinda Pemberton Primary Care Provider: Blanca Adame NP Consulting Providers: Sami Ellison Instructions Additional Instructions / Restrictions: 1. Unfortunately the reason for your fever was not identified. All cultures and imaging were unremarkable. That could have been a viral syndrome however you did improve with antibiotics so we will continue antibiotic as noted below to complete a total of 14-day course. 2. Please eat yogurt while on antibiotics and consider Imodium as needed depending on your ostomy output to avoid dehydration Discharge Orders/Prescriptions Prescriptions: New levofloxacin 750 mg tablet 750 mg PO DAILY Qty: 12 0RF No Action tramadol 50 mg tablet 50 mg PO PRN PRN (Reason: pain) progesterone micronized 200 mg capsule 200 mg PO DAILY Patient Comments: pt reports she has not taken it in four months- 07/27/2024 Rx Instructions: ON FIRST 12 DAYS OF MONTH estradiol 0.5 mg tablet 0.5 mg PO DAILY levothyroxine 112 mcg tablet 112 mcg PO DAILY loratadine [Allerclear] 10 mg tablet 10 mg PO DAILY fluoxetine 40 mg capsule 40 mg PO DAILY lorazepam 0.5 mg tablet 0.5 mg PO BID PRN PRN (Reason: anxiety) sennosides [Karlie-augustine] 8.6 mg tablet 8.6 mg PO Q12H PRN PRN (Reason: constipation) prochlorperazine maleate 5 mg tablet 10 mg PO Q6H PRN PRN (Reason: nausea/vomiting) ondansetron HCl 8 mg tablet 8 mg PO Q8H PRN PRN (Reason: nausea/vomiting) olanzapine 5 mg tablet 5 mg PO QHS pantoprazole 40 mg tablet,delayed release (DR/EC) 40 mg PO BID oxycodone 5 mg tablet 5 mg PO Q6H PRN PRN (Reason: pain) oxycodone 5 mg capsule 5 mg PO Q6H PRN (Reason: pain) 5 Days Qty: 20 0RF ondansetron 4 mg tablet,disintegrating 4 mg PO Q8H PRN PRN (Reason: Nausea) Qty: 10 0RF Referrals / Follow Up: Josep Evans DO [Med Staff - Active Staff] - See Referral Note (Call Saturday and discuss chemo for Saturday and make appt to see Dr. Evans the following week) Blanca Adame GEOLOGICAL SURVEY FIELD ASSISTANT, GEOLOGICAL SURVEY FIELD ASSISTANT-C [Primary Care Provider] - Within 1 Week Disposition Disposition (needs filled in before D/C Order can be placed): Home, Self Care Charges/Coding Visit Charges Inpatient E&M: 54291 Disch Hosp >30min
[2024-08-01 14:35] VITALS: BP 129/74; PULSE 95; RESP 16; O2SAT 98
== END 2024-08-01 15:07 | disposition home or self-care (01) | DRG 722 ==
LOC: ED 23:18 → PCU 07-30 00:57
PROVIDERS: Admitting Provider Family Medicine; Emergency Provider Emergency Medicine; PCP Nurse Practitioner Primary Care; Visit Provider Internal Medicine
DX: R50.9 Fever, unspecified (principal); C78.7 Secondary malignant neoplasm of liver and intrahepatic bile duct; E87.20 Acidosis, unspecified; C18.9 Malignant neoplasm of colon, unspecified; E03.9 Hypothyroidism, unspecified; F32.A Depression, unspecified; Z93.1 Gastrostomy status; M79.10 Myalgia, unspecified site; F41.9 Anxiety disorder, unspecified; T45.1X5A Adverse effect of antineoplastic and immunosuppressive drugs, initial encounter; Z80.1 Family history of malignant neoplasm of trachea, bronchus and lung; Z79.891 Long term (current) use of opiate analgesic; Z11.52 Encounter for screening for COVID-19; Z92.21 Personal history of antineoplastic chemotherapy; Z20.828 Contact with and (suspected) exposure to other viral communicable diseases; X58.XXXA Exposure to other specified factors, initial encounter; R10.11 Right upper quadrant pain
CPT/HCPCS: 36415; 71046; 74177; 80048; 80053; 80202; 81001; 83605; 83735; 84100; 85025; 85027; 85610; 85730; 87040; 87086; 87088; 87493; 87631; 87633; 99284; Q9967; A4216; J2405

== ENCOUNTER 2024-08-10 06:55 | Emergency (ER) | payer MEDICAID, SELFPAY ==
[2024-08-10 06:55] VITALS: PULSE 89; RESP 18; TEMP 36.7; O2SAT 98; BMI 29.9
[2024-08-10 07:00] VITALS: BP 118/78
--- NOTE | 2024-08-10 07:09 | CT_ITS ---
STUDY: CT ABDOMEN AND PELVIS WITH CONTRAST REASON FOR EXAM: Female, 53 years old. Pain, low output ostomy RADIATION DOSAGE (If Supplied By Facility): CTDIvol = ( 16.62 ) mGy, DLP = ( 1140.90 ) mGycm TECHNIQUE: IV 100mL Isovue-300 was administered. Transaxial images were obtained from the dome of the diaphragm to the symphysis pubis. Multiplanar coronal and sagittal images were reformatted. The protocol utilizes one or more of the following dose reduction techniques: automated exposure control, adjustment of mA and/or kV according to patient size,and/or use of iterative reconstruction technique. COMPARISON: Prior study dated: 08/01/2024 FINDINGS: Atelectatic changes in the lower lungs. The visualized portions of the heart are within normal limits. Hepatic steatosis. Multiple liver lesions are again seen, the largest measures about 6.7 cm unchanged the prior examination consistent with metastases. Normal gallbladder and extrahepatic biliary system. Mild splenomegaly. Normal pancreas. Normal bilateral adrenal glands. Normal visualized stomach. Normal in caliber small bowel loops. Left-sided ostomy is again seen unchanged. Focal stranding in the peritoneal fat in the left lower quadrant unchanged. There are surgical clips in the region of the appendix consistent with a prior appendectomy. Normal abdominal aorta. No retroperitoneal adenopathy. Normal right kidney. Normal left kidney. Normal urinary bladder. No pelvic mass. Metallic clip on the left side of the uterus. Normal abdominal wall. Small sclerotic lesion in the left ilium unchanged. CT/Abdomen/Pelvis W IV Cont ONLY IMPRESSION: 1. Liver masses consistent with metastases unchanged prior exam. 2. Hepatic steatosis. 3. Left side abdominal ostomy unchanged. No evidence of bowel obstruction. 4. Small sclerotic lesion in the left ilium unchanged. Electronically Signed: Danilo Nowak MD at 10:37 EST ,
--- NOTE | 2024-08-10 07:09 | ED.VIS.GI ---
HPI HPI - GI History of Present Illness Chief Complaint: Abd Pain Narrative Narrative: 53-year-old female past medical history of colon carcinoma with metastasis to liver/stage IV currently undergoing chemotherapy. Her oncologist Dr. Evans at the [facility]. She presents with right upper quadrant abdominal pain since yesterday evening along with low output from her ostomy. She relates history that she has had this feeling before and everyone thought this was a gallstone in her gallbladder that was acting up. However, she states that she has liver metastases that can be angry and inflamed. She is nauseated and has been gagging but has not had vomiting and noticed little output from her ostomy since yesterday evening. She cannot get comfortable, and took Tylenol without relief of her symptoms. She states that this feels similar to her previous, with the pain radiating to her right back. Pain is up under her ribs as well. She denies any hematuria or dysuria. [facility] Medical History Wears hearing aid Wears glasses Depression Anxiety Thyroid disease Non-smoker Shortness of breath on exertion Obesity Hypothyroidism Anxiety and depression Abdominal pain Carcinoma of colon Rectal bleed Metastasis to liver Home Medications ?Medication ?Instructions ?Recorded ?Last Taken ?Type estradiol 0.5 mg tablet 0.5 mg PO DAILY 11/25/23 12/16/23 History levothyroxine 112 mcg tablet 112 mcg PO DAILY 11/25/23 12/16/23 History loratadine 10 mg tablet 10 mg PO DAILY 11/25/23 12/16/23 History (Allerclear) progesterone micronized 200 mg 200 mg PO DAILY hot flashes 11/25/23 12/16/23 History capsule tramadol 50 mg tablet 50 mg PO PRN PRN pain 12/13/23 12/12/23 History ondansetron 4 mg disintegrating 4 mg PO Q8H PRN PRN Nausea #10 tabs 12/14/23 Unknown Rx tablet oxycodone 5 mg capsule 5 mg PO Q6H PRN pain 5 days #20 12/14/23 Unknown Rx caps fluoxetine 40 mg capsule 40 mg PO DAILY 07/29/24 Unknown History lorazepam 0.5 mg tablet 0.5 mg PO BID PRN PRN anxiety 07/29/24 Unknown History olanzapine 5 mg tablet 5 mg PO QHS 07/29/24 Unknown History ondansetron HCl 8 mg tablet 8 mg PO Q8H PRN PRN nausea/vomiting 07/29/24 Unknown History oxycodone 5 mg tablet 5 mg PO Q6H PRN PRN pain 07/29/24 Unknown History pantoprazole 40 mg tablet,delayed 40 mg PO BID 07/29/24 Unknown History release prochlorperazine maleate 5 mg 10 mg PO Q6H PRN PRN 07/29/24 Unknown History tablet nausea/vomiting sennosides 8.6 mg tablet (Karlie-augustine) 8.6 mg PO Q12H PRN PRN constipation 07/29/24 Unknown History levofloxacin 750 mg tablet 750 mg PO DAILY #12 tabs 08/01/24 Unknown Rx Allergy/AdvReac Type Severity Reaction Status Date / Time No Known Allergies Allergy Verified 08/10/24 06:55 Family History Mother COPD (chronic obstructive pulmonary disease) Lung cancer Diabetes Father Heart disease Hypertension Surgical History History of colostomy Hx of colonoscopy S/P laparoscopic colectomy History of bilateral tubal ligation H/O section Hx of appendectomy Social History household members: family and children Smoking Status: Never smoker alcohol intake: never substance use type: does not use ROS ROS ED ROS Narrative Constitutional: No fever, no chills. Cardiovascular: No chest pain. No palpitations. No pedal edema. Respiratory: No cough, no shortness of breath. Abdominal: Right upper quadrant radiating to back abdominal pain. Positive nausea. No vomiting. Positive gagging. Low output to ostomy. Genitourinary: No dysuria. No hematuria. Musculoskeletal: No myalgias. No arthralgias. Neurologic: No headaches. No dizziness. No lightheadedness. Skin: No rash. No change in color. Psychiatric: No depression. No anxiety. EXAM Physical Exam Narrative Exam Narrative: Afebrile. Vital signs noted. HEENT exam is grossly unremarkable. Cardiovascular examination reveals a regular rate and rhythm. Lungs are clear to auscultation bilaterally. The abdomen is soft with mild tenderness to palpation in the right upper quadrant. There is noted ostomy bag with very little air or feces in her ostomy bag. Decreased bowel sounds. No guarding or rebound. Neurological examination is nonfocal and nonlateralizing. Const Vital Signs: 08/10/24 06:55 08/10/24 07:00 08/10/24 09:00 Temperature 98.1 F Temperature Source Oral Pulse Rate 89 85 Respiratory Rate 18 16 Blood Pressure 118/78 125/63 H Blood Pressure Mean 91 83 Pulse Ox 98 100 Oxygen Delivery Method Room Air Room Air MDM MDM MDM Narrative Medical decision making narrative: Differential diagnosis includes but not limited to bowel obstruction versus partial bowel obstruction versus pain from liver metastases, versus cholecystitis versus choledocholithiasis versus pancreatitis versus ureterolithiasis. I have very low suspicion for ureterolithiasis based on the history and physical as it does not support this. I reviewed her prior records. She has pain similar to this previously with right upper quadrant pain. Basic laboratory work will be performed. I do feel that CT imaging would be more beneficial than ultrasound to help rule out obstruction since she has had low output from her ostomy as well. Reviewed her laboratory work and she has slight leukocytosis of 12.4 which I think is nonspecific, hemoglobin 12.4 with hematocrit 38.4 and platelet count normal at 339. Electrolyte panel is grossly unremarkable suffer glucose of 115 and a normal anion gap of 6. LFTs are normal except for alk phos elevated at 211 but when compared to prior laboratories appears to be her baseline. Lipase is normal at 32 so I doubt pancreatitis urinalysis is negative for infection with 0 WBCs. I do not feel antibiotics are indicated. I reviewed the radiology report of the CT of the abdomen and pelvis which does show metastases to the liver which are unchanged in size. Gallbladder appears normal. There is noted ostomy but no evidence of obstruction. Patient states that her pain started to return after morphine and declined any further narcotics and would like Toradol which she has at home. She was dosed with Toradol 30 mg IV. Upon repeat examination, she is resting comfortably on the cot again. I do not feel she requires observation or admission at this time. She states she already has pain medications at home. I feel she can be discharged to follow-up with her primary care provider and/or her steam conditioner filling oncologist. Return instructions to the emergency department reviewed. Disposition is discharged home in stable condition. History & Record Review Discussion w/independent historian: Patient Lab Data Attestation: I reviewed the patient's lab results. Labs: Laboratory Results - last 24 hr 08/10/24 07:54 WBC 12.4 H RBC 4.36 Hgb 12.4 Hct 38.4 MCV 88.1 MCH 28.4 MCHC 32.3 RDW Std Deviation 56.3 H RDW Coeff of Alex 17.7 H Plt Count 339 MPV 10.1 Immature Gran % (Auto) 0.600 Neut % (Auto) 79.9 H Lymph % (Auto) 9.5 L [place] % (Auto) 8.7 Eos % (Auto) 0.6 Baso % (Auto) 0.7 Absolute Neuts (auto) 9.9 H Absolute Lymphs (auto) 1.17 Nucleated RBC % 0 Sodium 136 Potassium 4.0 Chloride 106 Carbon Dioxide 24.0 Anion Gap 6 BUN 10 Creatinine 0.67 Estim Creat Clear Calc 112.23 Est GFR (MDRD) Af Amer 118 Est GFR (MDRD) Non-Af 97 BUN/Creatinine Ratio 14.9 Glucose 115 H Calcium 9.9 Total Bilirubin 0.90 AST 32 ALT 43 Alkaline Phosphatase 211 H Total Protein 7.8 Albumin 3.7 Globulin 4.1 Albumin/Globulin Ratio 0.9 Lipase 32 Urine Color Yellow Urine Clarity Sl. Cloudy Urine pH 6.0 Ur Specific [place] 1.020 Urine Protein 30 H Urine Glucose (UA) Normal Urine Ketones Negative Urine Occult Blood 10 H Urine Nitrite Negative Urine Bilirubin Negative Urine Urobilinogen Normal Ur Leukocyte Esterase 25 H Urine RBC 0-5 SEEN Urine WBC 0 SEEN Ur Squamous Epith Cells 0-5 SEEN Urine Bacteria RARE Urine Mucus 0 SEEN Radiography Diagnostic Testing: Clinical Impression(s) from Imaging Studies Abdomen/Pelvis CT 08/10/24 07:09 IMPRESSION: 1. Liver masses consistent with metastases unchanged prior exam. 2. Hepatic steatosis. 3. Left side abdominal ostomy unchanged. No evidence of bowel obstruction. 4. Small sclerotic lesion in the left ilium unchanged. Electronically Signed: Danilo Nowak MD at 10:37 EST , Discharge Plan Triage Chief Complaint: Abd Pain ED Provider: Armen Sheppard Dx/Rx/DC Orders Clinical Impression: Abdominal pain, right upper quadrant, Metastasis to liver, History of colon cancer Instructions: ED Abdominal Pain Unkn Cause Fem Prescriptions: No Action tramadol 50 mg tablet 50 mg PO PRN PRN (Reason: pain) progesterone micronized 200 mg capsule 200 mg PO DAILY Patient Comments: pt reports she has not taken it in four months- 07/27/2024 Rx Instructions: ON FIRST 12 DAYS OF MONTH estradiol 0.5 mg tablet 0.5 mg PO DAILY levothyroxine 112 mcg tablet 112 mcg PO DAILY loratadine [Allerclear] 10 mg tablet 10 mg PO DAILY fluoxetine 40 mg capsule 40 mg PO DAILY lorazepam 0.5 mg tablet 0.5 mg PO BID PRN PRN (Reason: anxiety) sennosides [Karlie-augustine] 8.6 mg tablet 8.6 mg PO Q12H PRN PRN (Reason: constipation) prochlorperazine maleate 5 mg tablet 10 mg PO Q6H PRN PRN (Reason: nausea/vomiting) ondansetron HCl 8 mg tablet 8 mg PO Q8H PRN PRN (Reason: nausea/vomiting) olanzapine 5 mg tablet 5 mg PO QHS pantoprazole 40 mg tablet,delayed release (DR/EC) 40 mg PO BID oxycodone 5 mg tablet 5 mg PO Q6H PRN PRN (Reason: pain) levofloxacin 750 mg tablet 750 mg PO DAILY Qty: 12 0RF oxycodone 5 mg capsule 5 mg PO Q6H PRN (Reason: pain) 5 Days Qty: 20 0RF ondansetron 4 mg tablet,disintegrating 4 mg PO Q8H PRN PRN (Reason: Nausea) Qty: 10 0RF Primary Care Provider: Blanca Adame NP Referrals: Blanca Adame NP, [employer] [Primary Care Provider] - 3-5 Days if not improving Activity Restrictions/Additional Instructions: Return with increasing pain, fever, new or worsening symptoms. Take the pain medications that you have been given already including Toradol, tramadol, and oxycodone as needed. Print Language: Icelandic Disposition Disposition: Home, Self Care
[2024-08-10] MEDS: Ondansetron 4 MG/2 ML Vial IV (07:37)
[2024-08-10] MEDS: Morphine 4 MG/ML Syringe IV (07:37)
[2024-08-10 08:08] LABS: Mucous, Urine 0 SEEN /hpf (<or=2+); White Blood Cells 0 SEEN /hpf (0-5)
[2024-08-10 08:18] LABS: Absolute Lymphocyte Count 1.17 X10^3/uL (0.83-4.51); Absolute Neutrophil Count 9.9 X10^3/uL (2.0-7.7); Basophil# 0.09 X10^3/uL; Basophil% 0.7 % (0-1); Eosinophil# 0.08 X10^3/uL; Eosinophils% 0.6 % (0-5); Hematocrit 38.4 % (37-47); Hemoglobin 12.4 g/dL (12.0-15.0); Lymphocyte # 1.17 X10^3/ul (0.83-4.51); Lymphocyte % 9.5 % (19-41); Mean Corp Hgb Conc 32.3 g/dL (32-36); Mean Corpuscular Hgb 28.4 pg (27.0-32.0); Mean Corpuscular Volume 88.1 fL (81-99); Mean Platelet Vol. 10.1 fl (6.2-12.0); Monocyte# 1.07 X10^3/uL; Monocyte% 8.7 % (0-10); NRBC Flagged by Analyzer 0 % (0-5); Neutrophil # 9.87 X10^3/uL (2.7-7.7); Neutrophil % 79.9 % (47-70); Platelet Count 339 K/mm3 (150-450); RBC Distribution Width CV 17.7 % (11.6-14.6); RBC Distribution Width SD 56.3 fl (35.1-43.9); Red Blood Count 4.36 M/mm3 (4.2-5.4); White Blood Count 12.4 K/mm3 (4.4-11.0)
[2024-08-10 08:19] LABS: Color, Urine Yellow (Yellow); Glucose, Dipstick Normal (Normal); Ketone-Dipstick Negative (Negative); Leukocyte Esterase-Dipstick 25 /ul (Negative); Nitrite-Dipstick Negative (Negative); Occult Blood-Urine 10 /ul (Negative); Protein-Dipstick 30 mg/dl (Negative); Urine Bilirubin Dipstick Negative (Negative); Urine Clarity Sl. Cloudy (Clear); Urine Urobilinogen Normal (Normal)
[2024-08-10 08:24] LABS: Red Blood Cells-Urine 0-5 SEEN /hpf (0-5); Squamous Epithelial Cells - UA 0-5 SEEN /hpf (5-10)
[2024-08-10 08:25] LABS: Bacteria RARE /hpf (None Seen)
[2024-08-10 08:31] LABS: ALB/GLOB Ratio 0.9 RATIO (0.9-2.4); AST(SGOT) 32 U/L (15-37); Alanine Aminotransfer ALT/SGPT 43 U/L (13-56); Albumin, Serum 3.7 g/dL (3.2-5.0); Alkaline Phosphatase 211 U/L (45-117); Anion Gap 6 (5-15); BUN 10 mg/dL (7-18); BUN/Creat Ratio 14.9 RATIO (10-20); Calcium,Total 9.9 mg/dL (8.5-10.1); Chloride 106 mmol/L (98-107); Creatinine, Serum 0.67 mg/dL (0.55-1.02); EST Glomerular Filtration Rate 97 mL/min (>60); Est Glom Filt Rate - Afr Amer 118 mL/min (>60); Estimated Creatinine Clearance 112.23 ml/min; Globulin 4.1 g/dL (2.2-4.2); Glucose 115 mg/dL (74-106); Lipase 32 U/L (13-75); Protein, Total 7.8 g/dL (6.4-8.2); Sodium Level 136 mmol/L (136-145)
[2024-08-10 09:00] VITALS: BP 125/63; PULSE 85; RESP 16; O2SAT 100
[2024-08-10] MEDS: Ketorolac 30 MG/ML Syringe IV (09:51)
[2024-08-10 11:05] VITALS: BP 119/63; PULSE 71; RESP 20; TEMP 36.9; O2SAT 100
== END 2024-08-10 11:06 | disposition home or self-care (01) ==
PROVIDERS: Emergency Provider Emergency Medicine; PCP Nurse Practitioner Primary Care; Visit Provider Emergency Medicine
DX: R10.11 Right upper quadrant pain (principal); C78.7 Secondary malignant neoplasm of liver and intrahepatic bile duct; Z93.3 Colostomy status; C18.9 Malignant neoplasm of colon, unspecified; R07.81 Pleurodynia; E03.9 Hypothyroidism, unspecified; Z90.49 Acquired absence of other specified parts of digestive tract; Z98.51 Tubal ligation status
CPT/HCPCS: 74177; 80053; 81001; 83690; 85025; 96374; 96375; 99282; Q9967; A4216; J2405

== ENCOUNTER 2024-10-20 10:39 | Emergency (ER) | payer MEDICAID, SELFPAY ==
[2024-10-20 10:40] VITALS: BP 120/60; PULSE 119; RESP 20; TEMP 35.6; O2SAT 97; BMI 26.5
--- NOTE | 2024-10-20 10:50 | EKG12_ITS ---
Test Reason : GENERAL Blood Pressure : */* mmHG Vent. Rate : 110 BPM Atrial Rate : 110 BPM P-R Int : 120 ms QRS Dur : 78 ms QT Int : 346 ms P-R-T Axes : 58 78 26 degrees QTcB Int : 468 ms Sinus tachycardia Otherwise normal ECG Confirmed by SAMUEL SLOAN, VIANEY ([id number]), city editor RANDOLPH MCKEON ([id number]) on 10/26/2024 8:31:29 AM Referred By: Confirmed By: VIANEY BAKER MD
[2024-10-20 11:24] LABS: Color, Urine Amber (Yellow); Glucose, Dipstick Normal (Normal); Ketone-Dipstick 50 mg/dl (Negative); Leukocyte Esterase-Dipstick 500 /ul (Negative); Nitrite-Dipstick Positive (Negative); Occult Blood-Urine 10 /ul (Negative); Protein-Dipstick 30 mg/dl (Negative); Specific Gravity, Urine 1.025 (1.002-1.030); Urine Clarity Sl. Cloudy (Clear); Urine Urobilinogen 12 mg/dl (Normal)
[2024-10-20] MEDS: Metoclopramide 10 MG/2 ML Vial IV (11:33)
[2024-10-20] MEDS: 0.9% Normal Saline (1000mL) 1,000 ML 999 ML IV (11:33)
[2024-10-20 11:34] LABS: Urine Bilirubin Dipstick 3 mg/dL (Negative)
[2024-10-20 11:36] LABS: Absolute Lymphocyte Count 0.43 X10^3/uL (0.83-4.51); Absolute Neutrophil Count 5.1 X10^3/uL (2.0-7.7); Basophil# 0.02 X10^3/uL; Basophil% 0.3 % (0-1); Eosinophil# 0.04 X10^3/uL; Eosinophils% 0.6 % (0-5); Hematocrit 36.9 % (37-47); Hemoglobin 11.9 g/dL (12.0-15.0); Lymphocyte # 0.43 X10^3/ul (0.83-4.51); Lymphocyte % 6.7 % (19-41); Mean Corp Hgb Conc 32.2 g/dL (32-36); Mean Corpuscular Volume 83.9 fL (81-99); Mean Platelet Vol. 10.2 fl (6.2-12.0); Monocyte# 0.84 X10^3/uL; NRBC Flagged by Analyzer 0 % (0-5); Neutrophil % 79.1 % (47-70); POSITIVE DIFFERENTIAL YES; POSITIVE MORPHOLOGY YES; Platelet Count 315 K/mm3 (150-450); RBC Distribution Width CV 20.9 % (11.6-14.6); RBC Distribution Width SD 59.8 fl (35.1-43.9); White Blood Count 6.5 K/mm3 (4.4-11.0)
[2024-10-20 11:39] LABS: Differential Indicated SCAN CRITERIA MET
[2024-10-20 11:42] LABS: Bacteria 2+ /hpf (None Seen); Mucous, Urine 3+ /hpf (<or=2+); Red Blood Cells-Urine 0-5 SEEN /hpf (0-5); Squamous Epithelial Cells - UA 0-5 SEEN /hpf (5-10); White Blood Cells 10-25 SEEN /hpf (0-5)
--- NOTE | 2024-10-20 11:47 | CT_ITS ---
EXAM: CT Abdomen and Pelvis With Intravenous Contrast CLINICAL INDICATION: N/V HX OF COLONCANCER WITH METS TECHNIQUE: Axial computed tomography images of the abdomen and pelvis with intravenous contrast. This CT exam was performed using one or more of the following dose reduction techniques: automated exposure control, adjustment of the mA and/or kV according to patient size, and/or use of iterative reconstruction technique. COMPARISON: CT Abdomen Pelvis dated 08/10/2024 FINDINGS: LUNG BASES: Unremarkable. No mass. No consolidation. ABDOMEN: LIVER: Multiple ill-defined hypodense lesions of the liver, concerning for metastasis, unchanged. Fatty infiltration of the liver. GALLBLADDER AND BILE DUCTS: Unremarkable. No calcified stones. No ductal dilation. PANCREAS: Unremarkable. No mass. No ductal dilation. SPLEEN: Mild splenomegaly. ADRENALS: Unremarkable. No mass. KIDNEYS AND URETERS: Unremarkable. No stones within either kidney. No hydronephrosis. STOMACH AND BOWEL: Left lower extremity ileostomy. No mucosal thickening. No bowel obstruction or pneumoperitoneum. PELVIS: APPENDIX: No findings to suggest acute appendicitis. BLADDER: Unremarkable. No mass. REPRODUCTIVE: Unremarkable as visualized. ABDOMEN and PELVIS: INTRAPERITONEAL SPACE: See findings above and below. BONES/JOINTS: No acute fracture. No dislocation. SOFT TISSUES: Surgical clips in the left upper abdomen. Umbilical hernia containing fat. VASCULATURE: Unremarkable. No abdominal aortic aneurysm. LYMPH NODES: Unremarkable. No enlarged lymph nodes. CT/Abdomen/Pelvis W IV Cont ONLY IMPRESSION: 1. No bowel obstruction or pneumoperitoneum. 2. Multiple ill-defined hypodense lesions of the liver, concerning for metasta sis, unchanged. 3. Umbilical hernia containing fat. 4. No obstructive uropathy. Reading Location: [facility]
--- NOTE | 2024-10-20 11:54 | EX.ED.DYSGE1 ---
HPI History of Present Illness Chief Complaint: Nausea/Vomiting Narrative Narrative: Patient is a 54-year-old female past medical history of colon cancer with metastasis to the liver, hypothyroidism, anxiety, depression who presents to the emergency department with a chief complaint of nausea vomiting for the last 5 days. Patient states that she just finished her 2 weeks of chemotherapy via pill form and is now on a 2-week break. Patient states that since things are not getting any better and she is not able to keep anything down she came here for the valuation management. Patient states that she did have a colectomy with colostomy placed and states that she has had output. [facility] Medical History Wears hearing aid Wears glasses Depression Anxiety Thyroid disease Non-smoker Shortness of breath on exertion Obesity Hypothyroidism Anxiety and depression Abdominal pain Carcinoma of colon Rectal bleed Metastasis to liver Home Medications ?Medication ?Instructions ?Recorded ?Last Taken ?Type estradiol 0.5 mg tablet 0.5 mg PO DAILY 11/25/23 12/16/23 History levothyroxine 112 mcg tablet 112 mcg PO DAILY 11/25/23 12/16/23 History loratadine 10 mg tablet 10 mg PO DAILY 11/25/23 12/16/23 History (Allerclear) progesterone micronized 200 mg 200 mg PO DAILY hot flashes 11/25/23 12/16/23 History capsule tramadol 50 mg tablet 50 mg PO PRN PRN pain 12/13/23 12/12/23 History ondansetron 4 mg disintegrating 4 mg PO Q8H PRN PRN Nausea #10 tabs 12/14/23 Unknown Rx tablet oxycodone 5 mg capsule 5 mg PO Q6H PRN pain 5 days #20 12/14/23 Unknown Rx caps fluoxetine 40 mg capsule 40 mg PO DAILY 07/29/24 Unknown History lorazepam 0.5 mg tablet 0.5 mg PO BID PRN PRN anxiety 07/29/24 Unknown History olanzapine 5 mg tablet 5 mg PO QHS 07/29/24 Unknown History ondansetron HCl 8 mg tablet 8 mg PO Q8H PRN PRN nausea/vomiting 07/29/24 Unknown History oxycodone 5 mg tablet 5 mg PO Q6H PRN PRN pain 07/29/24 Unknown History pantoprazole 40 mg tablet,delayed 40 mg PO BID 07/29/24 Unknown History release prochlorperazine maleate 5 mg 10 mg PO Q6H PRN PRN 07/29/24 Unknown History tablet nausea/vomiting sennosides 8.6 mg tablet (Karlie-augustine) 8.6 mg PO Q12H PRN PRN constipation 07/29/24 Unknown History levofloxacin 750 mg tablet 750 mg PO DAILY #12 tabs 08/01/24 Unknown Rx cephalexin 500 mg capsule 500 mg PO Q12H 5 days #10 caps 10/20/24 Unknown Rx dicyclomine 20 mg tablet 20 mg PO TID #30 tabs 10/20/24 Unknown Rx Allergy/AdvReac Type Severity Reaction Status Date / Time No Known Allergies Allergy Verified 08/10/24 06:55 Family History Mother COPD (chronic obstructive pulmonary disease) Lung cancer Diabetes Father Heart disease Hypertension Surgical History History of colostomy Hx of colonoscopy S/P laparoscopic colectomy History of bilateral tubal ligation H/O section Hx of appendectomy Social History household members: family and children Smoking Status: Never smoker alcohol intake: never substance use type: does not use ROS ROS ED ROS Narrative Constitutional: Denies fever, chills, headaches Cardiovascular: Denies chest pain or palpitations Respiratory: Denies coughing wheezing shortness of breath Abdomen: Complains of nausea and vomiting as noted above as well as she does have colostomy output does state that she does have some abdominal discomfort : Denies any urinary symptoms Neurological: Denies numbness, weakness, tingling Musculoskeletal: Denies back pain Skin: Denies rashes or lesions EXAM Physical Exam Narrative Exam Narrative: General: Patient was lying in bed rest comfortably did not appear to be in acute distress Head: Atraumatic, normocephalic Eyes: PERRL bilaterally, EOMI bilaterally, no conjunctival injection noted Neck: Soft, supple, trachea midline Cardiovascular: Patient tachycardic with a regular rhythm no murmurs gallops rubs noted Respiratory: Clear to auscultation bilaterally Abdomen: Soft, nondistended, tenderness to palpation around her colostomy site, no rebound or guarding on exam, stoma pink. Extremities: +5/5 strength noted in the bilateral upper and lower extremities, radial pulses +2/4 in the bilateral extremities, no pedal edema on exam Neurological: Patient follow commands knew that she was at [facility] year is 2024 Skin: Warm, dry, intact no rashes or lesions noted Const Vital Signs: 10/20/24 10:40 10/20/24 12:39 Temperature 96.1 F L Temperature Source Temporal Pulse Rate 119 H 108 H Respiratory Rate 20 H 19 H Blood Pressure 120/60 Blood Pressure Mean 80 Pulse Ox 97 98 Oxygen Delivery Method Room Air Room Air MDM MDM MDM Narrative Medical decision making narrative: Patient is a 54-year-old female who presented to the emergency department chief complaint of abdominal pain nausea vomiting for the last 5 days. On the differential diagnose includes but not limited to viral gastroenteritis, worsening metastases, bowel obstruction. Once workup is obtained reviewed she will be reevaluated. Patient be given IV fluids and Reglan. Patient still complain of nausea therefore she was given IV Zofran. Patient CBC reviewed and showed no evidence leukocytosis white blood count 6.5, hemoglobin 0.9, plate count noted to be normal at 315. Patient's absolute neutrophil count was normal at 5.1. Patient's sodium to be 132, potassium normal 3.8, creatinine was 0.59. Patient anion gap was 15. Patient's AST and ALT were 63 and 34 respectively, alk phosphatase elevated to 270 however this is chronically elevated. Patient total bilirubin was elevated 1.58. Patient test negative, urinalysis showed positive nitrates 500 leukocyte esterase 10-25 white cells with 2+ bacteria she was given a gram Rocephin this was sent for culture. Patient CT abdomen pelvis with IV contrast reviewed and showed no bowel obstruction or pneumoperitoneum. Multiple ill-defined hypodense lesions in the liver concerning for metastatic disease which is unchanged. Umbilical hernia containing fat. No obstructive uropathy noted. Patient's EKG reviewed and shows sinus tachycardia the rate of 110 bpm On reevaluation the patient she is feeling better she would like go home at this point time. Patient was advised to encourage hydration with water, Pedialyte etc. She was advised to use the antiemetics that she already has prescribed at home and she will be sent Bentyl to the pharmacy. She is advised to return with worsening symptoms and concerns. She is agreeable this plan as well as family member bedside all question concerns answered she was discharged home in stable condition. Lab Data Labs: Laboratory Results - last 24 hr 10/20/24 10/20/24 11:15 11:27 WBC 6.5 RBC 4.40 Hgb 11.9 L Hct 36.9 L MCV 83.9 MCH 27.0 MCHC 32.2 RDW Std Deviation 59.8 H RDW Coeff of Alex 20.9 H Plt Count 315 MPV 10.2 Immature Gran % (Auto) 0.300 Neut % (Auto) 79.1 H Lymph % (Auto) 6.7 L [place] % (Auto) 13.0 H Eos % (Auto) 0.6 Baso % (Auto) 0.3 Absolute Neuts (auto) 5.1 Absolute Lymphs (auto) 0.43 L Nucleated RBC % 0 Platelet Estimate A Polychromasia 1+ Anisocytosis 1+ Sodium 132 L Potassium 3.8 Chloride 96 L Carbon Dioxide 21.3 Anion Gap 15 BUN 13 Creatinine 0.59 L Estim Creat Clear Calc 119.09 Est GFR (MDRD) Non-Af 106 BUN/Creatinine Ratio 21.3 H Glucose 106 H Calcium 9.7 Total Bilirubin 1.58 H AST 63 H ALT 34 Alkaline Phosphatase 270 H Total Protein 8.0 Albumin 4.1 Globulin 3.9 Albumin/Globulin Ratio 1.1 Lipase 24 Serum , Qual NEGATIVE Urine Color Lakeisha Urine Clarity Sl. Cloudy Urine pH 6.0 Ur Specific [place] 1.025 Urine Protein 30 H Urine Glucose (UA) Normal Urine Ketones 50 H Urine Occult Blood 10 H Urine Nitrite Positive H Urine Bilirubin 3 H Urine Urobilinogen 12 H Ur Leukocyte Esterase 500 H Urine RBC 0-5 SEEN Urine WBC 10-25 SEEN Ur Squamous Epith Cells 0-5 SEEN Urine Bacteria 2+ Urine Mucus 3+ Radiography Diagnostic Testing: Clinical Impression(s) from Imaging Studies Abdomen/Pelvis CT 10/20/24 11:47 IMPRESSION: 1. No bowel obstruction or pneumoperitoneum. 2. Multiple ill-defined hypodense lesions of the liver, concerning for metastasis, unchanged. 3. Umbilical hernia containing fat. 4. No obstructive uropathy. Reading Location: [facility] Discharge Plan Triage Chief Complaint: Nausea/Vomiting ED Provider: Ga Souza Dx/Rx/DC Orders Clinical Impression: Nausea & vomiting Prescriptions: New dicyclomine 20 mg tablet 20 mg PO TID Qty: 30 0RF cephalexin 500 mg capsule 500 mg PO Q12H 5 Days Qty: 10 0RF No Action tramadol 50 mg tablet 50 mg PO PRN PRN (Reason: pain) progesterone micronized 200 mg capsule 200 mg PO DAILY Patient Comments: pt reports she has not taken it in four months- 07/27/2024 Rx Instructions: ON FIRST 12 DAYS OF MONTH estradiol 0.5 mg tablet 0.5 mg PO DAILY levothyroxine 112 mcg tablet 112 mcg PO DAILY loratadine [Allerclear] 10 mg tablet 10 mg PO DAILY fluoxetine 40 mg capsule 40 mg PO DAILY lorazepam 0.5 mg tablet 0.5 mg PO BID PRN PRN (Reason: anxiety) sennosides [Karlie-augustine] 8.6 mg tablet 8.6 mg PO Q12H PRN PRN (Reason: constipation) prochlorperazine maleate 5 mg tablet 10 mg PO Q6H PRN PRN (Reason: nausea/vomiting) ondansetron HCl 8 mg tablet 8 mg PO Q8H PRN PRN (Reason: nausea/vomiting) olanzapine 5 mg tablet 5 mg PO QHS pantoprazole 40 mg tablet,delayed release (DR/EC) 40 mg PO BID oxycodone 5 mg tablet 5 mg PO Q6H PRN PRN (Reason: pain) levofloxacin 750 mg tablet 750 mg PO DAILY Qty: 12 0RF oxycodone 5 mg capsule 5 mg PO Q6H PRN (Reason: pain) 5 Days Qty: 20 0RF ondansetron 4 mg tablet,disintegrating 4 mg PO Q8H PRN PRN (Reason: Nausea) Qty: 10 0RF Primary Care Provider: Blanca Adame NP Referrals: Blanca Adame NP, [employer] [Primary Care Provider] - Activity Restrictions/Additional Instructions: Follow-up with your primary care physician outpatient setting. Use the Zofran and Compazine for nausea as needed as prescribed. Take the Keflex as prescribed. Use the Bentyl as prescribed as well for abdominal discomfort. Return if worsening symptoms or any other concerns. Your CT did not show anything acute the liver metastatic disease is stable and unchanged. Print Language: Swedish Disposition Disposition: Home, Self Care
[2024-10-20 11:55] LABS: Internal QC Validated? YES +Cl - CLEAR BKGD; Pregnancy, Serum, hCG Quali. NEGATIVE Negative
[2024-10-20 11:57] LABS: ALB/GLOB Ratio 1.1 RATIO (0.9-2.4); AST(SGOT) 63 U/L (<=31); Alanine Aminotransfer ALT/SGPT 34 U/L (<=34); Albumin, Serum 4.1 g/dL (3.5-5.0); Alkaline Phosphatase 270 U/L (35-104); Anion Gap 15 (5-15); BUN 13 mg/dL (4-19); BUN/Creat Ratio 21.3 RATIO (10-20); Calcium,Total 9.7 mg/dL (7.6-11.0); Carbon Dioxide 21.3 mmol/L (21.0-32.0); Chloride 96 mmol/L (98-108); Creatinine, Serum 0.59 mg/dL (0.70-1.20); EST Glomerular Filtration Rate 106 (>60); Estimated Creatinine Clearance 119.09 ml/min (50-250); Globulin 3.9 g/dL (2.2-4.2); Glucose 106 mg/dL (70-99); Lipase 24 U/L (13-75); Potassium 3.8 mmol/L (3.3-5.1); Sodium Level 132 mmol/L (133-145); Total Bilirubin 1.58 mg/dL (0.00-1.30)
[2024-10-20] MEDS: Ceftriaxone 1 GM/50 ML BAG IV (12:04)
[2024-10-20] MEDS: Ondansetron 4 MG/2 ML Vial IV (12:23)
[2024-10-20] MEDS: Morphine 4 MG/ML Syringe IV (12:23)
[2024-10-20 12:31] LABS: Anisocytosis 1+; Platelet Estimate A (ADEQ); Polychromasia 1+
[2024-10-20 12:39] VITALS: PULSE 108; RESP 19; O2SAT 98
[2024-10-20 13:32] VITALS: BP 129/78; PULSE 84; RESP 20; TEMP 36.6; O2SAT 100
== END 2024-10-20 13:33 | disposition home or self-care (01) ==
PROVIDERS: Emergency Provider Emergency Medicine; PCP Nurse Practitioner Primary Care; Visit Provider Emergency Medicine
DX: R11.2 Nausea with vomiting, unspecified (principal); C78.7 Secondary malignant neoplasm of liver and intrahepatic bile duct; Z93.3 Colostomy status; K42.9 Umbilical hernia without obstruction or gangrene; F41.9 Anxiety disorder, unspecified; E03.9 Hypothyroidism, unspecified; Z98.51 Tubal ligation status; F32.A Depression, unspecified; Z79.899 Other long term (current) drug therapy
CPT/HCPCS: 36591; 74177; 80053; 81001; 83690; 84703; 85025; 87086; 87088; 87631; 93005; 96361; 96365; 96375; 99282; Q9967; A4216; J2405